=== PATIENT | female | born 1970 | race African-American/Black ===

== ENCOUNTER 2020-04-23 12:24 | Outpatient (REF) | payer OTHER, SELFPAY ==
[2020-04-23 13:44] LABS: MANUAL DIFF FLAG NO
[2020-04-23 13:58] LABS: Basophils Percent Auto 0.3 % (0-2); Eosinophils Absolute Auto 0.2 X10*3/uL (0.0-0.4); Eosinophils Percent Auto 3.1 % (0-4); Hematocrit 41.3 % (37-47); Hemoglobin 13.6 g/dl (12.0-16.0); Imm Gran Abs Auto 0.02 X10*3/uL (0.00-0.03); Imm Gran Pct Auto 0.3 % (0.0-0.4); Lymphocytes Absolute Auto 2.5 X10*3/uL (1.2-4.9); Lymphocytes Percent Auto 36.5 % (20-40); Mean Corpuscular HGB Conc 32.9 g/dl (31.0-35.0); Mean Corpuscular Hemoglobin 31.1 pg (27.0-33.0); Mean Corpuscular Volume 94.5 fL (80-98); Mean Platelet Volume 9.6 fL (9.4-12.3); Monocytes Absolute Auto 0.7 X10*3/uL (0.1-1.2); Neutrophils Absolute Auto 3.4 X10*3/uL (2.0-8.3); Neutrophils Percent Auto 49.8 % (45-73); Platelet Count 361 X10*3/uL (160-400); Red Blood Count 4.37 X10*6/uL (4.20-5.50); Red Cell Distribution Width 12.4 % (11.0-16.0); White Blood Count 6.9 X10*3/uL (4.8-10.8)
[2020-04-23 14:35] LABS: Alanine Aminotransferase 18 U/L (0-31); Alkaline Phosphatase 63 U/L (39-117); Anion Gap 13 (12-20); Aspartate Amino Transferase 13 U/L (5-31); Bilirubin Total 0.4 mg/dL (0.0-1.0); Blood Urea Nitrogen 16 mg/dL (9-16); Calcium 8.9 mg/dL (8.4-10.2); Carbon Dioxide 29 mmol/L (22-29); Chloride 103 mmol/L (96-108); Estimated Glomerular Filt Rate > 60; Glucose Random 98 mg/dL (60-115); Potassium 4.2 mmol/l (3.3-5.1); Sodium 141 mmol/L (135-145)
[2020-04-23 14:43] LABS: Thyroid Stimulating Hormone 0.12 uIU/mL (0.32-4.0)
== END 2020-04-23 12:25 | disposition home or self-care (01) ==
LOC: HO.10HDL 12:24
PROVIDERS: PCP Internal Medicine; Visit Provider Internal Medicine
DX: R53.83 Other fatigue (principal); I10 Essential (primary) hypertension; G47.33 Obstructive sleep apnea (adult) (pediatric); K21.9 Gastro-esophageal reflux disease without esophagitis
CPT/HCPCS: 36415; 80053; 84443; 85025

== ENCOUNTER 2020-05-18 09:41 | Outpatient (REF) | payer OTHER, SELFPAY ==
[2020-05-18 15:01] LABS: Free T4 (Free Thyroxine) 0.89 ng/dL (0.71-1.85); Thyroid Stimulating Hormone 0.28 uIU/mL (0.32-4.0)
[2020-05-19 18:13] LABS: Thyroid Peroxidase Antibodies 1 IU/mL (<9)
== END 2020-05-18 09:42 | disposition home or self-care (01) ==
LOC: HO.10HDL 09:41
PROVIDERS: PCP Internal Medicine; Visit Provider Internal Medicine
DX: E05.90 Thyrotoxicosis, unspecified without thyrotoxic crisis or storm (principal)
CPT/HCPCS: 36415; 84439; 84443; 84481; 86376

== ENCOUNTER → 2020-07-26 20:30 | Outpatient (REF) | payer OTHER, SELFPAY | LOC: HO.SL 20:30 | PROVIDERS: PCP Internal Medicine; Visit Provider Counselor Addiction (Substance Use Disorder) | DX: G47.33 Obstructive sleep apnea (adult) (pediatric) (principal); I10 Essential (primary) hypertension; E66.01 Morbid (severe) obesity due to excess calories | CPT/HCPCS: 95810 ==

== ENCOUNTER 2020-09-24 13:57 | Outpatient (REF) | payer OTHER, SELFPAY ==
[2020-09-24 14:35] LABS: MANUAL DIFF FLAG NO
[2020-09-24 14:38] LABS: Basophils Percent Auto 0.6 % (0-2); Eosinophils Absolute Auto 0.2 X10*3/uL (0.0-0.4); Eosinophils Percent Auto 2.4 % (0-4); Hematocrit 42.8 % (37-47); Hemoglobin 14.3 g/dl (12.0-16.0); Imm Gran Abs Auto 0.03 X10*3/uL (0.00-0.03); Imm Gran Pct Auto 0.4 % (0.0-0.4); Lymphocytes Absolute Auto 2.2 X10*3/uL (1.2-4.9); Lymphocytes Percent Auto 32.9 % (20-40); Mean Corpuscular HGB Conc 33.4 g/dl (31.0-35.0); Mean Corpuscular Hemoglobin 30.8 pg (27.0-33.0); Mean Platelet Volume 8.9 fL (9.4-12.3); Monocytes Absolute Auto 0.6 X10*3/uL (0.1-1.2); Monocytes Percent Auto 9.4 % (2-11); Neutrophils Absolute Auto 3.7 X10*3/uL (2.0-8.3); Neutrophils Percent Auto 54.3 % (45-73); Platelet Count 368 X10*3/uL (160-400); Red Blood Count 4.65 X10*6/uL (4.20-5.50); Red Cell Distribution Width 12.4 % (11.0-16.0); White Blood Count 6.7 X10*3/uL (4.8-10.8)
[2020-09-24 15:05] LABS: Alanine Aminotransferase 28 U/L (0-31); Albumin Level 4.2 g/dL (3.5-5.0); Alkaline Phosphatase 65 U/L (39-117); Anion Gap 15 (12-20); Aspartate Amino Transferase 20 U/L (5-31); Bilirubin Total 0.4 mg/dL (0.0-1.0); Blood Urea Nitrogen 14 mg/dL (9-16); C Reactive Protein 2.37 mg/dL (< or = 0.50); Calcium 9.8 mg/dL (8.4-10.2); Carbon Dioxide 32 mmol/L (22-29); Chloride 98 mmol/L (96-108); Estimated Glomerular Filt Rate 44; Glucose Random 93 mg/dL (60-115); Potassium 4.2 mmol/L (3.3-5.1); Sodium 141 mmol/L (135-145); Total Protein 7.3 g/dL (6.5-8.0)
[2020-09-24 16:34] LABS: Glucose Urine UA NEG (NEG); Leukocyte Esterase Urine TRACE (NEG); Nitrite Urine NEG (NEG); Urine Blood 2+ (NEG); Urine Ketones NEG (NEG); Urine Protein NEG (NEG-TRACE)
[2020-09-24 16:37] LABS: Appearance Urine HAZY; Color Urine YELLOW
[2020-09-24 16:44] LABS: Bacteria Urine 1+ /LPF; RBC Urine 30-49 /HPF (0); Squamous Epithelial Cell Urine 1+ /LPF; WBC Clumps Urine NOTED
[2020-09-25 07:41] LABS: Prolactin 5.4 ng/mL
== END 2020-09-24 13:58 | disposition home or self-care (01) ==
LOC: HO.LAB 13:57
PROVIDERS: PCP Internal Medicine; Visit Provider Internal Medicine
DX: N94.10 Unspecified dyspareunia (principal)
CPT/HCPCS: 36415; 80053; 81001; 84146; 85025; 86140

== ENCOUNTER → 2020-10-10 19:14 | Outpatient (REF) | payer OTHER, SELFPAY | LOC: HO.SL 19:14 | PROVIDERS: Visit Provider Counselor Addiction (Substance Use Disorder) | DX: G47.33 Obstructive sleep apnea (adult) (pediatric) (principal); R06.83 Snoring; Z99.89 Dependence on other enabling machines and devices | CPT/HCPCS: 95811 ==

== ENCOUNTER 2020-10-25 10:08 | Outpatient (REF) | payer OTHER, SELFPAY ==
[2020-10-25 17:21] LABS: CT PCR NOT DETECTED (Not Detect.); NG PCR NOT DETECTED (Not Detect.)
[2020-10-26 09:43] LABS: BV Int Neg Control Negative (Negative); BV Int Pos Control Positive (Positive)
[2020-10-29 00:02] LABS: HPV mRNA E6/E7 rflx Not Detected (Not Detected)
== END 2020-10-25 10:09 | disposition home or self-care (01) ==
LOC: HO.LAB 10:08
PROVIDERS: Visit Provider Advanced Practice Midwife
DX: Z01.411 Encounter for gynecological examination (general) (routine) with abnormal findings (principal); Z11.51 Encounter for screening for human papillomavirus (HPV); Z11.3 Encounter for screening for infections with a predominantly sexual mode of transmission; N95.0 Postmenopausal bleeding; N94.10 Unspecified dyspareunia
CPT/HCPCS: 87480; 87491; 87510; 87591; 87624; 87660; 88142

== ENCOUNTER 2020-11-03 10:01 | Emergency (ER) | payer OTHER, SELFPAY ==
--- NOTE | 2020-11-03 | ECG_ITS ---
Test Reason : SEPSIS Blood Pressure : / mmHG Vent. Rate : 108 BPM Atrial Rate : 108 BPM P-R Int : 156 ms QRS Dur : 076 ms QT Int : 336 ms P-R-T Axes : 055 -35 047 degrees QTc Int : 450 ms Sinus tachycardia Possible Left atrial enlargement Left axis deviation Abnormal ECG When compared with ECG of 03-NOV-2020 11:32, No significant changes seen Referred By: Angel Roach Electronically Signed By:Alan Rowe
--- NOTE | ~2020-11-03 | XR_ITS ---
EXAMINATION: XR CHEST CLINICAL INFORMATION: Fever and shortness of breath COMPARISON: Previous chest x-ray most recent June 2011 TECHNIQUE: Frontal view of the chest was obtained. FINDINGS: The cardiac and mediastinal contours are normal. The lungs are clear. There is no pleural effusion or pneumothorax. There are degenerative changes of the spine. XR/XR chest 1V IMPRESSION: Unremarkable examination.
[2020-11-03 10:18] VITALS: BP 136/71; PULSE 111; RESP 23; TEMP 39; O2SAT 100; BMI 65.2
--- NOTE | 2020-11-03 10:32 | ED_ITS ---
HPI - Fever General Chief Complaint: Fever Stated Complaint: SHAKEY W/CHILLS SINCE 4AM,TEMP 95.5 PER EMS Time Seen by Provider: 11/03/20 10:32 Source: patient Mode of arrival: EMS Limitations: no limitations History of Present Illness HPI Narrative: patient with shaking chills since last night. States some shortness of breath. Patient has been vaccinated for JUWAN CRUZ elicited complaint: fever Onset (ago): hour(s) Associated symptoms: shortness of breath Related Data Home Medications Medication Instructions Recorded Confirmed aspirin 81 mg tablet,delayed 81 mg PO QAM 10/25/20 release bupropion HCl 200 mg tablet,12 hr 200 mg PO DAILY 10/25/20 sustained-release hydrochlorothiazide 12.5 mg capsule 12.5 mg PO DAILY 10/25/20 varenicline 0.5 mg (11)-1 mg (42) 0 ea PO DIRECTED 10/25/20 tablets in a dose pack Previous Rx's Medication Instructions Recorded metronidazole 0.75 % vaginal gel 1 appful VAGINAL BEDTIME 5 Days 10/26/20 #70 g cephalexin 500 mg PO QID 7 Days #28 cap 11/03/20 Allergies Allergy/AdvReac Type Severity Reaction Status Date / Time No Known Allergies Allergy Verified 10/25/20 10:21 Review of Systems Constitutional: Constitutional: Reports no additional constitutional complaints Eyes: Eyes: Reports no additional eye complaints ENT: Denies dizziness Cardiovascular: Cardiovascular: Reports no additional cardiovascular complaints Respiratory: Respiratory: Reports as per HPI Gastrointestinal: Gastrointestinal: Reports no additional gastrointestinal complaints Genitourinary: Genitourinary: Reports no additional female genitourinary complaints Musculoskeletal: Musculoskeletal: Reports no additional musculoskeletal complaints Integumentary/Breasts: Skin/Breast: Denies rash Neurologic: Reports system reviewed and no additional complaints, except as documented, Denies dizziness and Denies Sensory deficit (Neuro) Psychiatric: Psychiatric: Denies anxiety COUNTS INCLUDE 234 BEDS AT THE [facility] Past Medical History Medical History Ectopic Extreme obesity Hypertension Surgical History History of hernia surgery Hx of adenoidectomy Family History Family History Mother History of breast cancer Social History Social History Alcohol intake: current Alcohol intake frequency: holidays/special occasions only Patient Tobacco Use Status: Former Tobacco user Cigarettes Per Day: 7 Years Smoked: 30 Use of substances other than those prescribed or required for medical reasons: No Advance Directives: No Advance Directives Information Provided: Yes Patient : No Physical Exam Vital Signs: Vital Signs: Last Vital Signs Temp 99.1 F 11/03/20 11:52 Pulse 105 H 11/03/20 12:31 Resp 30 H 11/03/20 12:31 BP 122/68 11/03/20 12:31 Pulse Ox 100 11/03/20 11:52 Body Mass Index 65.2 Const: Other: morbidly obese female shaking in bed Orientation/consciousness: oriented to person and patient oriented x3 Limitations: no limitations HENMT: Head: Yes normal to inspection Ears: external ears normal General nose exam: Normal external nose present Mouth: Normal oral and palatal mucosa present and oropharynx normal Throat: Yes posterior oropharynx normal Eyes: General: appearance normal, both eyes and all related structures Neck: Other: supple Neck: Yes normal visual inspection Chest: Chest palpation & inspection: normal inspection of the chest Resp: Auscultation: clear to auscultation bilaterally Cardio: Jugular venous distension: no JVD Rate: regular rate Rhythm: regular rhythm Heart sounds: S1 normal heart sound present and S2 normal heart sound present GI: Inspection: Yes normal to inspection Palpation (GI): Soft to palpation, nontender and No hepatosplenomegaly present Auscultation: normal bowel sounds : General: Yes no CVA tenderness Back/Spine/Pelvis: Back: no CVA tenderness Skin: General skin exam: no rashes or lesions noted Neuro: General: oriented to person and patient oriented x3 Cranial nerves: Yes CN's II-XII intact bilaterally Motor exam (neuro): 5/5 motor strength present throughout Sensory Exam: No Sensory deficit (Neuro) Extrem: General: Yes normal to inspection Psych: Appearance: grossly normal Course Reevaluation(s) Reevaluation #1: Despite shaking chills, UA consistent with UTI, elevated WBC, patient is not septic. Will give IV ABX and dc home Time: 13:06 Reevaluation #2: patient looking and feeling better will dc on keflex for UTI, no longer tachycardic Time: 14:10 MDM - Fever Lab Data Result diagrams: 11/03/20 10:50 11/03/20 10:51 Labs: Lab Results 11/03/20 11/03/20 11/03/20 Range/Units 10:50 10:50 10:50 WBC 13.8 H (4.8-10.8) X10*3/uL RBC 4.55 (4.20-5.50) X10*6/uL Hgb 13.9 (12.0-16.0) g/dl Hct 41.2 (37-47) % MCV 90.5 (80-98) fL MCH 30.5 (27.0-33.0) pg MCHC 33.7 (31.0-35.0) g/dl RDW 12.2 (11.0-16.0) % Plt Count 321 (160-400) X10*3/uL MPV 9.1 L (9.4-12.3) fL Immature Gran % (Auto) 0.5 H (0.0-0.4) % Neut % (Auto) 87.9 H (45-73) % Lymph % (Auto) 6.8 L (20-40) % [place] % (Auto) 4.3 (2-11) % Eos % (Auto) 0.4 (0-4) % Baso % (Auto) 0.1 (0-2) % Lymph # (Auto) 0.9 L (1.2-4.9) X10*3/uL [place] # (Auto) 0.6 (0.1-1.2) X10*3/uL Eos # (Auto) 0.1 (0.0-0.4) X10*3/uL Baso # (Auto) 0.0 (0.0-0.2) X10*3/uL Abs Immat Gran (auto) 0.07 H (0.00-0.03) X10*3/uL Absolute Neuts (auto) 12.1 H (2.0-8.3) X10*3/uL Absolute Nucleated RBC 0.000 (0.0-0.012) X10*3/uL Nucleated RBC % (auto) 0.0 (0.0-0.2) /100WBC PT 12.3 (10.8-13.0) SEC INR 1.0 (0.9-1.1) APTT 30.8 (24.1-38.0) SEC Sodium (135-145) mmol/L Potassium (3.3-5.1) mmol/L Chloride (96-108) mmol/L Carbon Dioxide (22-29) mmol/L Anion Gap (12-20) BUN (9-16) mg/dL Creatinine (0.5-1.4) mg/dL Estim Creat Clear Calc Estimated GFR Random Glucose (60-115) mg/dL Lactic Acid 1.9 (0.5-2.0) mmol/L Calcium (8.4-10.2) mg/dL Total Bilirubin (0.0-1.0) mg/dL Urine Color Urine Appearance Urine pH (5.0-8.0) Ur Specific [place] (1.005-1.025) Urine Protein (NEG-TRACE) MG/DL Urine Glucose (UA) (NEG) MG/DL Urine Ketones (NEG) MG/DL Urine Blood (NEG) Urine Nitrite (NEG) Ur Leukocyte Esterase (NEG) Urine RBC (0) /HPF Urine WBC (0-4) /HPF Ur Squamous Epith Cells /LPF Urine Bacteria /LPF 11/03/20 11/03/20 Range/Units 10:51 11:48 WBC (4.8-10.8) X10*3/uL RBC (4.20-5.50) X10*6/uL Hgb (12.0-16.0) g/dl Hct (37-47) % MCV (80-98) fL MCH (27.0-33.0) pg MCHC (31.0-35.0) g/dl RDW (11.0-16.0) % Plt Count (160-400) X10*3/uL MPV (9.4-12.3) fL Immature Gran % (Auto) (0.0-0.4) % Neut % (Auto) (45-73) % Lymph % (Auto) (20-40) % [place] % (Auto) (2-11) % Eos % (Auto) (0-4) % Baso % (Auto) (0-2) % Lymph # (Auto) (1.2-4.9) X10*3/uL [place] # (Auto) (0.1-1.2) X10*3/uL Eos # (Auto) (0.0-0.4) X10*3/uL Baso # (Auto) (0.0-0.2) X10*3/uL Abs Immat Gran (auto) (0.00-0.03) X10*3/uL Absolute Neuts (auto) (2.0-8.3) X10*3/uL Absolute Nucleated RBC (0.0-0.012) X10*3/uL Nucleated RBC % (auto) (0.0-0.2) /100WBC PT (10.8-13.0) SEC INR (0.9-1.1) APTT (24.1-38.0) SEC Sodium 140 (135-145) mmol/L Potassium 3.7 (3.3-5.1) mmol/L Chloride 100 (96-108) mmol/L Carbon Dioxide 29 (22-29) mmol/L Anion Gap 15 (12-20) BUN 13 (9-16) mg/dL Creatinine 0.96 (0.5-1.4) mg/dL Estim Creat Clear Calc 102.6 Estimated GFR > 60 Random Glucose 134 H D (60-115) mg/dL Lactic Acid (0.5-2.0) mmol/L Calcium 9.8 (8.4-10.2) mg/dL Total Bilirubin 0.9 (0.0-1.0) mg/dL Urine Color YELLOW Urine Appearance CLOUDY Urine pH 6.0 (5.0-8.0) Ur Specific [place] <= 1.005 (1.005-1.025) Urine Protein NEG (NEG-TRACE) MG/DL Urine Glucose (UA) NEG (NEG) MG/DL Urine Ketones NEG (NEG) MG/DL Urine Blood TRACE (NEG) Urine Nitrite POS H (NEG) Ur Leukocyte Esterase 3+ H (NEG) Urine RBC 0-2 (0) /HPF Urine WBC 76-150 H (0-4) /HPF Ur Squamous Epith Cells 2+ /LPF Urine Bacteria 2+ /LPF Discharge Plan Discharge Clinical Impression: Fever Qualifiers: Fever type: unspecified Qualified Code(s): R50.9 - Fever, unspecified Urinary tract infection Qualifiers: Urinary tract infection type: acute cystitis Hematuria presence: without hematuria Qualified Code(s): N30.00 - Acute cystitis without hematuria Patient Disposition: Home, Self-Care Instructions: Urinary Tract Infection in Women (ED) Prescriptions: New cephalexin 500 mg capsule 500 mg PO QID 7 Days Qty: 28 RF: 0 No Action metronidazole [Metrogel Vaginal] 0.75 % gel 1 appful vaginal BEDTIME 5 Days Qty: 70 RF: 0 bupropion HCl 200 mg tablet sustained-release 12 hr 200 mg PO DAILY RF: 0 aspirin 81 mg tablet,delayed release (DR/EC) 81 mg PO QAM RF: 0 hydrochlorothiazide 12.5 mg capsule 12.5 mg PO DAILY RF: 0 Chantix Starting Month Box 0.5 mg (11)- 1 mg (42) tablets,dose pack 0 ea PO DIRECTED RF: 0 Referrals: Milton Quinn MD [Primary Care Provider] - 5 days
[2020-11-03 10:58] LABS: MANUAL DIFF FLAG NO
[2020-11-03 11:04] LABS: Basophils Percent Auto 0.1 % (0-2); Eosinophils Absolute Auto 0.1 X10*3/uL (0.0-0.4); Eosinophils Percent Auto 0.4 % (0-4); Hematocrit 41.2 % (37-47); Hemoglobin 13.9 g/dl (12.0-16.0); Imm Gran Abs Auto 0.07 X10*3/uL (0.00-0.03); Imm Gran Pct Auto 0.5 % (0.0-0.4); Lymphocytes Absolute Auto 0.9 X10*3/uL (1.2-4.9); Lymphocytes Percent Auto 6.8 % (20-40); Mean Corpuscular HGB Conc 33.7 g/dl (31.0-35.0); Mean Corpuscular Hemoglobin 30.5 pg (27.0-33.0); Mean Corpuscular Volume 90.5 fL (80-98); Mean Platelet Volume 9.1 fL (9.4-12.3); Monocytes Absolute Auto 0.6 X10*3/uL (0.1-1.2); Monocytes Percent Auto 4.3 % (2-11); Neutrophils Absolute Auto 12.1 X10*3/uL (2.0-8.3); Neutrophils Percent Auto 87.9 % (45-73); Platelet Count 321 X10*3/uL (160-400); Red Blood Count 4.55 X10*6/uL (4.20-5.50); Red Cell Distribution Width 12.2 % (11.0-16.0); White Blood Count 13.8 X10*3/uL (4.8-10.8)
--- NOTE | 2020-11-03 11:08 | ECG_ITS ---
Test Reason : SEPSIS Blood Pressure : / mmHG Vent. Rate : 108 BPM Atrial Rate : 108 BPM P-R Int : 160 ms QRS Dur : 076 ms QT Int : 330 ms P-R-T Axes : 047 -37 031 degrees QTc Int : 442 ms Sinus tachycardia with occasional Premature atrial complexes Possible Left atrial enlargement Left axis deviation Abnormal ECG When compared with ECG of 30-MAR-2018 19:37, Premature atrial complexes are now Present Referred By: Generic ED Physician Electronically Signed By:Alan Rowe
[2020-11-03 11:09] VITALS: BP 153/74; PULSE 112; RESP 22; TEMP 37.9; O2SAT 100
[2020-11-03 11:10] LABS: Prothrombin Time 12.3 SEC (10.8-13.0)
[2020-11-03] MEDS: Acetaminophen 325 MG TABLET 975 MG PO (11:12)
[2020-11-03 11:13] LABS: Partial Thromboplastin Time 30.8 SEC (24.1-38.0)
[2020-11-03 11:24] LABS: Lactic Acid 1.9 mmol/L (0.5-2.0)
[2020-11-03 11:25] LABS: Anion Gap 15 (12-20); Bilirubin Total 0.9 mg/dL (0.0-1.0); Blood Urea Nitrogen 13 mg/dL (9-16); Calcium 9.8 mg/dL (8.4-10.2); Carbon Dioxide 29 mmol/L (22-29); Chloride 100 mmol/L (96-108); Creatinine Clr Calc Pharmacy 102.6; Estimated Glomerular Filt Rate > 60; Glucose Random 134 mg/dL (60-115); Potassium 3.7 mmol/L (3.3-5.1); Sodium 140 mmol/L (135-145)
[2020-11-03 11:52] VITALS: BP 134/70; PULSE 108; RESP 24; TEMP 37.3; O2SAT 100
[2020-11-03 11:56] LABS: Glucose Urine UA NEG (NEG); Leukocyte Esterase Urine 3+ (NEG); Nitrite Urine POS (NEG); Specific Gravity - Urine <= 1.005 (1.005-1.025); UACC Culture Trigger YES; Urine Blood TRACE (NEG); Urine Ketones NEG (NEG); Urine Protein NEG (NEG-TRACE)
[2020-11-03 11:57] LABS: Appearance Urine CLOUDY; Color Urine YELLOW
--- NOTE | 2020-11-03 12:03 | PC.NURSE ---
pts sister cliff is in wr for updates her number also is [phone], pts daughters are also in [place].
[2020-11-03 12:04] LABS: Bacteria Urine 2+ /LPF; RBC Urine 0-2 /HPF (0); Squamous Epithelial Cell Urine 2+ /LPF
[2020-11-03 12:31] VITALS: BP 122/68; PULSE 105; RESP 30
[2020-11-03] MEDS: cefTRIAXone sodium 1 GM in 0.9 % Sodium Chloride 50 ML IV (12:40)
[2020-11-03 14:28] VITALS: BP 142/64; PULSE 99; RESP 14; TEMP 36.8
== END 2020-11-03 15:01 | disposition home or self-care (01) ==
PROVIDERS: Emergency Provider Emergency Medicine; PCP Internal Medicine
DX: N30.00 Acute cystitis without hematuria (principal); I10 Essential (primary) hypertension; Z79.899 Other long term (current) drug therapy
CPT/HCPCS: 36415; 71045; 80048; 81001; 81003; 82247; 83605; 85025; 85610; 85730; 87040; 87077; 87086; 87088; 87186; 87205; 93005; 96361; 96365; 99285; J0696

== ENCOUNTER 2020-12-13 15:01 | Outpatient (REF) | payer OTHER, SELFPAY ==
--- NOTE | ~2020-12-13 | US_ITS ---
EXAMINATION: PELVIC ULTRASOUND CLINICAL INFORMATION: Postmenopausal bleeding COMPARISON: None TECHNIQUE: Transabdominal pelvic ultrasound was performed. Patient declined transvaginal exam. FINDINGS: Exam is very limited. The uterus measures 10.3 x 4.9 x 5.2 cm in dimension. The lower uterine segment and cervix are not well visualized. There is question of a 3.3 x 3.2 x 3.1 cm right posterior uterine body fibroid. Endometrium is slightly thickened for a postmenopausal patient measuring 0.7 cm. The ovaries are not seen. No fluid is seen. US/US pelvic and transvaginal IMPRESSION: Very limited exam. Question 3 cm uterine fibroid and slightly thickened endometrium measuring 0.7 cm. Ovaries not seen.
== END 2020-12-13 15:02 | disposition home or self-care (01) ==
LOC: HO.US 15:01
PROVIDERS: Visit Provider Advanced Practice Midwife
DX: N95.0 Postmenopausal bleeding (principal)
CPT/HCPCS: 76830; 76856

== ENCOUNTER 2021-02-23 12:47 | Outpatient (REF) | payer OTHER, SELFPAY | END 2021-02-23 12:48 | disposition home or self-care (01) | LOC: HO.LAB 12:47 | PROVIDERS: PCP Internal Medicine; Visit Provider Advanced Practice Midwife | DX: N95.0 Postmenopausal bleeding (principal); R35.0 Frequency of micturition | CPT/HCPCS: 58100; 81002; 87086; 88305 ==

== ENCOUNTER 2021-02-24 11:58 | Outpatient (REF) | payer OTHER, SELFPAY ==
[2021-02-24 13:37] LABS: MANUAL DIFF FLAG NO
[2021-02-24 13:45] LABS: Basophils Percent Auto 0.5 % (0-2); Eosinophils Absolute Auto 0.3 X10*3/uL (0.0-0.4); Eosinophils Percent Auto 4.8 % (0-4); Hematocrit 40.8 % (37-47); Hemoglobin 13.4 g/dl (12.0-16.0); Imm Gran Abs Auto 0.02 X10*3/uL (0.00-0.03); Imm Gran Pct Auto 0.3 % (0.0-0.4); Lymphocytes Absolute Auto 2.1 X10*3/uL (1.2-4.9); Lymphocytes Percent Auto 34.9 % (20-40); Mean Corpuscular HGB Conc 32.8 g/dl (31.0-35.0); Mean Corpuscular Hemoglobin 30.7 pg (27.0-33.0); Mean Corpuscular Volume 93.4 fL (80-98); Mean Platelet Volume 9.4 fL (9.4-12.3); Monocytes Absolute Auto 0.7 X10*3/uL (0.1-1.2); Monocytes Percent Auto 11.3 % (2-11); Neutrophils Absolute Auto 2.9 X10*3/uL (2.0-8.3); Neutrophils Percent Auto 48.2 % (45-73); Platelet Count 310 X10*3/uL (160-400); Red Blood Count 4.37 X10*6/uL (4.20-5.50); Red Cell Distribution Width 13.3 % (11.0-16.0)
[2021-02-24 14:16] LABS: Alanine Aminotransferase 27 U/L (0-31); Albumin Level 4.1 g/dL (3.5-5.0); Alkaline Phosphatase 66 U/L (39-117); Anion Gap 13 (12-20); Aspartate Amino Transferase 20 U/L (5-31); Bilirubin Total 0.5 mg/dL (0.0-1.0); Blood Urea Nitrogen 11 mg/dL (9-16); Calcium 9.6 mg/dL (8.4-10.2); Carbon Dioxide 29 mmol/L (22-29); Chloride 104 mmol/L (96-108); Cholesterol 214 mg/dL; Estimated Glomerular Filt Rate > 60; Glucose Random 103 mg/dL (60-115); HDL Cholesterol 39 mg/dL; LDL Cholesterol Calculated 147 mg/dl; Potassium 4.4 mmol/L (3.3-5.1); Sodium 142 mmol/L (135-145); Total Protein 7.1 g/dL (6.5-8.0); Triglycerides 144 mg/dL
[2021-02-24 14:37] LABS: Thyroid Stimulating Hormone 0.21 uIU/mL (0.32-4.0)
== END 2021-02-24 11:59 | disposition home or self-care (01) ==
LOC: HO.10HDL 11:58
PROVIDERS: Visit Provider Internal Medicine
DX: Z00.00 Encounter for general adult medical examination without abnormal findings (principal); R63.5 Abnormal weight gain
CPT/HCPCS: 36415; 80053; 80061; 84443; 85025

== ENCOUNTER → 2021-03-14 11:33 | Outpatient (BNVA) | payer OTHER, SELFPAY | PROVIDERS: PCP Internal Medicine; Visit Provider Advanced Practice Midwife ==

== ENCOUNTER 2021-03-16 15:19 | Outpatient (REF) | payer OTHER, SELFPAY ==
--- NOTE | ~2021-03-16 | MM_ITS ---
EXAMINATION: MM SCREENING DIGITAL BREAST TOMOSYNTHESIS, BILATERAL CLINICAL INFORMATION: Screening. Asymptomatic. The lifetime risk of breast cancer based on the Tyrer-Cuzick Model is 18%. COMPARISON: Mammography: 04/03/2011 TECHNIQUE: Digital breast tomosynthesis is performed in both the craniocaudal and mediolateral oblique views along with computer-aided detection (CAD). Synthesized 2D images are generated from the tomosynthesis. Additional views are provided: Bilateral CC, bilateral MLO. FINDINGS: There are scattered areas of fibroglandular density (ACR BI-RADS breast composition Category b). There are no significant masses, abnormal calcifications, or other abnormalities. MM/MM tomosynthesis screening BI IMPRESSION: No mammographic evidence of malignancy. ASSESSMENT: BI-RADS 1: Negative RECOMMENDATION: Routine annual mammography screening. This patient's information was entered into a reminder system with a target due date for their next mammogram.
== END 2021-03-16 15:20 | disposition home or self-care (01) ==
LOC: HO.MAMMO 15:19
PROVIDERS: Visit Provider Internal Medicine
DX: Z12.31 Encounter for screening mammogram for malignant neoplasm of breast (principal)
CPT/HCPCS: 77063; 77067

== ENCOUNTER 2021-06-24 10:36 | Outpatient (REF) | payer OTHER, SELFPAY ==
[2021-06-27 07:46] LABS: TS Negative Control Passed; TS Panel A 0; TS Panel B 0; TS Positive Control Passed; TSpotTB Negative (Negative)
== END 2021-06-24 10:37 | disposition home or self-care (01) ==
LOC: HO.LAB 10:36
PROVIDERS: PCP Internal Medicine; Visit Provider Internal Medicine
DX: Z02.1 Encounter for pre-employment examination (principal); Z11.1 Encounter for screening for respiratory tuberculosis
CPT/HCPCS: 36415; 86481

== ENCOUNTER 2021-08-15 14:37 | Outpatient (REF) | payer OTHER, SELFPAY ==
[2021-08-16 15:22] LABS: BV Int Neg Control Negative (Negative); BV Int Pos Control Positive (Positive)
== END 2021-08-15 14:38 | disposition home or self-care (01) ==
LOC: HO.LAB 14:37
PROVIDERS: PCP Internal Medicine; Visit Provider Advanced Practice Midwife
DX: N73.9 Female pelvic inflammatory disease, unspecified (principal); N95.0 Postmenopausal bleeding; N89.8 Other specified noninflammatory disorders of vagina; R23.2 Flushing; R35.0 Frequency of micturition; I10 Essential (primary) hypertension; E66.01 Morbid (severe) obesity due to excess calories; Z68.44 Body mass index [BMI] 60.0-69.9, adult; Z87.891 Personal history of nicotine dependence
CPT/HCPCS: 87480; 87510; 87660; 99212

== ENCOUNTER 2021-09-05 13:32 | Outpatient (REF) | payer OTHER, SELFPAY ==
--- NOTE | ~2021-09-05 | US_ITS ---
EXAMINATION: US PELVIS CLINICAL INFORMATION: Postmenopausal bleeding COMPARISON: Previous pelvic ultrasound December [address] of the abdomen and pelvis January 2020 TECHNIQUE: Transabdominal pelvic ultrasound. Patient complained transvaginal exam. FINDINGS: Exam is very limited due to body habitus. The uterus is anteverted and measures 9.5 x 4.4 x 6.3 cm in dimension. The previously identified right posterior uterine body fibroid is not appreciated. There is a 2.6 x 2 x 2.1 cm hypoechoic area questionable for a fibroid in the left cornual region. The endometrium is not well visualized. Endometrial thickness is estimated at 0.8 cm. The ovaries are not seen. There is no fluid in the pelvis. US/US pelvic complete IMPRESSION: Very limited exam. Endometrial thickness is estimated at 0.8 cm.
== END 2021-09-05 13:33 | disposition home or self-care (01) ==
LOC: HO.US 13:32
PROVIDERS: Visit Provider Advanced Practice Midwife
DX: N95.0 Postmenopausal bleeding (principal)
CPT/HCPCS: 76856

== ENCOUNTER 2021-09-27 14:58 | Outpatient (REF) | payer OTHER, SELFPAY ==
[2021-09-27 15:09] LABS: MANUAL DIFF FLAG NO
[2021-09-27 15:40] LABS: Basophils Percent Auto 0.5 % (0-2); Eosinophils Absolute Auto 0.2 X10*3/uL (0.0-0.4); Eosinophils Percent Auto 2.7 % (0-4); Hematocrit 44.1 % (37.0-47.0); Hemoglobin 14.6 g/dl (12.0-16.0); Imm Gran Abs Auto 0.02 X10*3/uL (0.00-0.03); Imm Gran Pct Auto 0.3 % (0.0-0.4); Lymphocytes Percent Auto 39.4 % (20-40); Mean Corpuscular HGB Conc 33.1 g/dl (31.0-35.0); Mean Corpuscular Hemoglobin 30.2 pg (27.0-33.0); Mean Corpuscular Volume 91.3 fL (80.0-98.0); Mean Platelet Volume 8.9 fL (9.4-12.3); Monocytes Absolute Auto 0.8 X10*3/uL (0.1-1.2); Neutrophils Absolute Auto 3.6 x10*3/uL (2.0-8.3); Neutrophils Percent Auto 47.1 % (45-73); Platelet Count 378 X10*3/uL (160-400); Red Blood Count 4.83 X10*6/uL (4.20-5.50); Red Cell Distribution Width 12.5 % (11.0-16.0); White Blood Count 7.5 X10*3/uL (4.8-10.8)
[2021-09-27 15:51] LABS: Estimated Average Glucose 126 mg/dL
[2021-09-27 16:09] LABS: Alanine Aminotransferase 32 U/L (0-31); Albumin Level 4.2 g/dL (3.5-5.0); Alkaline Phosphatase 68 U/L (39-117); Anion Gap 14 (12-20); Aspartate Amino Transferase 23 U/L (5-31); Bilirubin Total 0.3 mg/dL (0.0-1.0); Blood Urea Nitrogen 13 mg/dL (9-16); Carbon Dioxide 31 mmol/L (22-29); Chloride 101 mmol/L (96-108); Estimated Glomerular Filt Rate 54; Glucose Random 94 mg/dL (60-115); Potassium 4.2 mmol/L (3.3-5.1); Sodium 142 mmol/L (135-145); Total Protein 7.6 g/dL (6.5-8.0)
== END 2021-09-27 14:59 | disposition home or self-care (01) ==
LOC: HO.LAB 14:58
PROVIDERS: Absent Provider Internal Medicine; PCP Internal Medicine; Visit Provider Advanced Practice Midwife
DX: R53.1 Weakness (principal); R50.9 Fever, unspecified; R53.83 Other fatigue
CPT/HCPCS: 36415; 80053; 83036; 85025

== ENCOUNTER → 2022-02-06 11:55 | Outpatient (BNVA) | payer OTHER, SELFPAY | PROVIDERS: PCP Internal Medicine; Visit Provider Obstetrics & Gynecology | DX: N95.0 Postmenopausal bleeding (principal) | CPT/HCPCS: 99212 ==

== ENCOUNTER 2022-02-24 08:19 | Day surgery (SDC) | payer OTHER, SELFPAY ==
--- NOTE | 2022-02-23 10:23 | P.CONAN_ITS ---
Documented by User: Madelaine Coronel NP 02/23/22 10:23 HPI - Anesthesia Eval Consult details Narrative: 51yo F for D&C Hysteroscopy,poss polypectomy,poss myomectomy PMFSH Active Problems Active Problems: All Active Problems (Updated 02/06/22 @ 12:31 by Marcello Pablo MD) Chronic endometritis (Acute) PMB (postmenopausal bleeding) (Acute) Past Medical History Medical History Ectopic Extreme obesity Hypertension Family History Family History Mother History of breast cancer Surgical History Surgical History History of hernia surgery Hx of adenoidectomy Social History Social History Alcohol intake: current Alcohol intake frequency: holidays/special occasions only Patient Tobacco Use Status: Former Tobacco user Tobacco use type: Cigarette Cigarettes Per Day: 4 Years Smoked: 30 Smoked in Last 30 Days: Yes Use of substances other than those prescribed or required for medical reasons: Yes Are you DNR?: No Advance Directives: No Advance Directives Information Provided: Yes Meds Allergies Allergy/AdvReac Type Severity Reaction Status Date / Time No Known Allergies Allergy Verified 02/24/22 08:43 Home Medications Medication Instructions Recorded Confirmed Last Taken Type aspirin 81 mg tablet,delayed 81 mg PO QAM 10/25/20 02/24/22 02/23/22 History release bupropion HCl 200 mg tablet,12 hr 200 mg PO DAILY 10/25/20 02/24/22 Unknown History sustained-release hydrochlorothiazide 12.5 mg capsule 12.5 mg PO DAILY 10/25/20 02/24/22 Unknown History meclizine 25 mg tablet 25 mg PO BID PRN Vertigo 08/15/21 02/24/22 Unknown History Exam Exam Date and Time: February 23, 2022 1023 Pertinent Lab Results Pertinent Lab Results: Laboratory Tests 09/27/21 09/27/21 15:05 15:05 WBC 7.5 Hgb 14.6 Hct 44.1 Plt Count 378 Sodium 142 Potassium 4.2 Chloride 101 Carbon Dioxide 31 H BUN 13 Creatinine 1.06 Assessment and Plan Assessment Anesthesia Assessment: Chart Reviewed Documented by User: Chris Montez MD 02/24/22 09:28 [facility] Past Medical History Medical History Ectopic Extreme obesity Hypertension Family History Family History Mother History of breast cancer Family history of problems with anesthesia: No Surgical History Surgical History History of hernia surgery Hx of adenoidectomy History of Problems with Anesthesia: No Social History Social History Alcohol intake: current Alcohol intake frequency: holidays/special occasions only Patient Tobacco Use Status: Former Tobacco user Tobacco use type: Cigarette Cigarettes Per Day: 4 Years Smoked: 30 Smoked in Last 30 Days: Yes Use of substances other than those prescribed or required for medical reasons: Yes Are you DNR?: No Advance Directives: No Advance Directives Information Provided: Yes Meds Allergies Allergy/AdvReac Type Severity Reaction Status Date / Time No Known Allergies Allergy Verified 02/24/22 08:43 Home Medications Medication Instructions Recorded Confirmed Last Taken Type aspirin 81 mg tablet,delayed 81 mg PO QAM 10/25/20 02/24/22 02/23/22 History release bupropion HCl 200 mg tablet,12 hr 200 mg PO DAILY 10/25/20 02/24/22 Unknown History sustained-release hydrochlorothiazide 12.5 mg capsule 12.5 mg PO DAILY 10/25/20 02/24/22 Unknown History meclizine 25 mg tablet 25 mg PO BID PRN Vertigo 08/15/21 02/24/22 Unknown History Exam Airway Mallampati Class: III TM Dist: >3cm Neck ROM: Full Loose/Missing/Broken Teeth: No Heart: [id number] Lungs: cta b/l Assessment and Plan Assessment Anesthesia Assessment: Anesthesia Plan Discussed Final Anesthetic Review Family History of Problems with Anesthesia: No History of Problems with Anesthesia: No NPO: Yes ASA Class: III Final Preanesthetic Review: No Changes in Pt Med Stat, Consent Obtained/Reviewed and Anes Risks/Benef Reviewed Patient Risk: Intermediate Procedure Risk: Intermediate Assessment/Block/Sedation in SS: Assess/Block/Sedation-SS Anesthetic Plan Anesthetic Plan: GA and Agree w/ Assess. and Plan Disposition: Standard PACU
[2022-02-24 08:46] VITALS: BMI 60.3
[2022-02-24 08:53] VITALS: BP 127/90; PULSE 92; RESP 16; TEMP 36.5; O2SAT 98
[2022-02-24] MEDS: Lactated Ringers 1,000 ML 100 ML IVCONT (09:16)
--- NOTE | 2022-02-24 09:17 | MHC.SHP ---
Pre-Procedural Eval Section A Date of Service: 02/24/22 The patient is an INPATIENT: No Changes since office visit: No Cold of Flu in the past 2 weeks, No New Medical Problems, No Changes in Medication and No Patient answered all questions The History & Physical has been completed within 30 days and I have reviewed it.: Yes Section B Chief Complaint: Postmenopausal bleeding Allergies: Allergies Allergy/AdvReac Type Severity Reaction Status Date / Time No Known Allergies Allergy Verified 02/24/22 08:43 Plan Diagnosis/Plan: Unchanged I have reviewed the history and physical and performed a pertinent physical examination on my patient. No changes have occurred unless specified.
--- NOTE | 2022-02-24 10:10 | P.BOP_ITS ---
Brief Operative Note Date of Service: 02/24/22 Pre-op diagnosis: Postmenopausal bleeding Post-op diagnosis: same Procedure: Hysteroscopy D&C Surgeon: Marcello Pablo MD Anesthesia: GLMA Was an Forest Officer used for this Procedure?: No Estimated blood loss (mL): 0 Pathology: other (Endometrial Scrapping. ) Condition: stable Disposition: PACU
--- NOTE | 2022-02-24 10:11 | P.OP_ITS ---
Operative Note Operative Note Date of Service: 02/24/22 Narrative: Preop Diagnosis: Post Menopausal bleeding Operation: Diagnostic Hysteroscopy, Dilataion & Curettage Post Op Diagnosis: Normal endometrial cavity QBL: Minimal Anesthesia: GLMA Surgeon: Marcello Pablo MD Engineering Technology Instructor: None Complication: None Pathology: Endometrial Scrapings Procedure: The patient was put in the dorsal lithotomy position, scrubbed, and draped in the usual manner. A sterile speculum was inserted in the patient's vagina. The anterior lip of the cervix was grasped with a single tooth tenaculum. The cervix was dilated up to 5 mm, then the scope was inserted in the patient's uterus. Inspection revealed Normal endometrial cavity. The Myosure Reach device was used; the scope was removed from the endometrial cavity , sharp curettings was carried on with minimal to moderate amount of tissues retrieved. At the end of the procedure, all instruments were taken out of the patient uterine and vaginal cavity. The single tooth tenaculum was removed and homeostasis was assured using pressure,. The patient tolerated the procedure well and was transferred to the PACU in a stable condition.
[2022-02-24 10:20] VITALS: BP 171/73; PULSE 96; RESP 24; TEMP 36.4; O2SAT 92
[2022-02-24 10:25] VITALS: BP 175/86; PULSE 88; RESP 17; O2SAT 92
[2022-02-24 10:35] VITALS: BP 151/95; BP 160/70; PULSE 80; PULSE 81; RESP 18; RESP 19; O2SAT 94; O2SAT 96
[2022-02-24 10:50] VITALS: BP 182/81; PULSE 66; RESP 20; TEMP 36.3; O2SAT 97
== END 2022-02-24 11:31 | disposition home or self-care (01) ==
PROVIDERS: PCP Internal Medicine; Visit Provider Obstetrics & Gynecology
PROC: 0UDB8ZZ Extraction of Endometrium, Via Natural or Artificial Opening Endoscopic (ICD-10-PCS; CPT 58558; principal; 2022-02-24 09:50)
DX: N95.0 Postmenopausal bleeding (principal); N85.4 Malposition of uterus; I10 Essential (primary) hypertension; E66.01 Morbid (severe) obesity due to excess calories; Z68.44 Body mass index [BMI] 60.0-69.9, adult; Z79.82 Long term (current) use of aspirin; Z79.899 Other long term (current) drug therapy; Z87.891 Personal history of nicotine dependence
CPT/HCPCS: 58558; 88305; J1885; J2405; J3010

== ENCOUNTER 2022-03-13 09:26 | Outpatient (REF) | payer OTHER, SELFPAY ==
[2022-03-13 09:46] LABS: MANUAL DIFF FLAG NO
[2022-03-13 10:25] LABS: Basophils Percent Auto 0.7 % (0-2); Eosinophils Absolute Auto 0.2 X10*3/uL (0.0-0.4); Hematocrit 41.3 % (37.0-47.0); Hemoglobin 13.8 g/dl (12.0-16.0); Imm Gran Abs Auto 0.01 X10*3/uL (0.00-0.03); Imm Gran Pct Auto 0.2 % (0.0-0.4); Lymphocytes Absolute Auto 2.7 X10*3/uL (1.2-4.9); Lymphocytes Percent Auto 46.9 % (20-40); Mean Corpuscular HGB Conc 33.4 g/dl (31.0-35.0); Mean Corpuscular Hemoglobin 30.7 pg (27.0-33.0); Mean Platelet Volume 9.2 fL (9.4-12.3); Monocytes Absolute Auto 0.5 X10*3/uL (0.1-1.2); Monocytes Percent Auto 9.3 % (2-11); Neutrophils Absolute Auto 2.3 x10*3/uL (2.0-8.3); Neutrophils Percent Auto 38.9 % (45-73); Platelet Count 322 X10*3/uL (160-400); Red Blood Count 4.49 X10*6/uL (4.20-5.50); Red Cell Distribution Width 12.8 % (11.0-16.0); White Blood Count 5.8 X10*3/uL (4.8-10.8)
[2022-03-13 11:06] LABS: Alanine Aminotransferase 19 U/L (0-31); Alkaline Phosphatase 55 U/L (39-117); Anion Gap 16 (12-20); Aspartate Amino Transferase 13 U/L (5-31); Bilirubin Total 0.3 mg/dL (0.0-1.0); Blood Urea Nitrogen 17 mg/dL (9-16); C Reactive Protein 1.35 mg/dL (< or = 0.50); Calcium 9.4 mg/dL (8.4-10.2); Carbon Dioxide 28 mmol/L (22-29); Chloride 103 mmol/L (96-108); Cholesterol 219 mg/dL; Estimated Glomerular Filt Rate > 60; Glucose Fasting 107 mg/dL (60-99); HDL Cholesterol 42 mg/dL; LDL Cholesterol Calculated 150 mg/dl; Potassium 4.5 mmol/L (3.3-5.1); Sodium 142 mmol/L (135-145); Total Protein 6.9 g/dL (6.5-8.0); Triglycerides 136 mg/dL
[2022-03-13 11:30] LABS: Thyroid Stimulating Hormone 0.11 uIU/mL (0.32-4.0)
[2022-03-13 11:43] LABS: Vitamin B12 468 pg/mL (200-900)
== END 2022-03-13 09:27 | disposition home or self-care (01) ==
LOC: HO.LAB 09:26
PROVIDERS: PCP Internal Medicine; Visit Provider Internal Medicine
DX: Z00.00 Encounter for general adult medical examination without abnormal findings (principal)
CPT/HCPCS: 36415; 80053; 80061; 82550; 82607; 84443; 85025; 86140

== ENCOUNTER → 2022-03-14 12:33 | Outpatient (BNVA) | payer OTHER, SELFPAY | PROVIDERS: PCP Internal Medicine; Visit Provider Obstetrics & Gynecology | DX: D25.9 Leiomyoma of uterus, unspecified (principal); N95.0 Postmenopausal bleeding | CPT/HCPCS: 99212 ==

== ENCOUNTER → 2022-06-02 12:32 | Outpatient (BNVA) | payer OTHER, SELFPAY | PROVIDERS: PCP Internal Medicine; Visit Provider Physician Assistant Surgical | DX: Z13.89 Encounter for screening for other disorder (principal) ==

== ENCOUNTER 2022-06-14 10:12 | Outpatient (REF) | payer OTHER, SELFPAY ==
--- NOTE | ~2022-06-14 | US_ITS ---
CLINICAL INDICATION: Uterine leiomyoma. TECHNIQUE: Real-time transabdominal pelvic ultrasound examination was performed. The patient reportedly refused transvaginal examination. COMPARISON: September 05, 2021 and December 13, 2020. FINDINGS: The study is limited. The uterus measures 9.0 cm in length by 4.9 cm in AP dimension by 4.5 cm in transverse dimension. Question 3.4 x 3.4 x 2.8 cm intramural/subserosal leiomyoma posteriorly in the body of the uterus, poorly demonstrated. Suspect 2.9 x 2.1 x 2.0 cm intramural leiomyoma in the body of uterus toward the left. The endometrial stripe is poorly visualized. It may measure approximately 5 mm in thickness. No fluid is seen in the endometrial cavity. The ovaries could not be visualized by the technologist. No adnexal mass is seen. No fluid is identified in the cul-de-sac. US/US pelvic and transvaginal IMPRESSION: Limited study. Uterine leiomyomata. Ovaries could not be visualized by the technologist.
== END 2022-06-14 10:13 | disposition home or self-care (01) ==
LOC: HO.US 10:12
PROVIDERS: PCP Internal Medicine; Visit Provider Obstetrics & Gynecology
DX: D25.9 Leiomyoma of uterus, unspecified (principal)
CPT/HCPCS: 76830; 76856

== ENCOUNTER → 2022-07-26 11:12 | Outpatient (BNVA) | payer OTHER, SELFPAY | PROVIDERS: PCP Internal Medicine; Visit Provider Obstetrics & Gynecology | DX: D25.9 Leiomyoma of uterus, unspecified (principal) | CPT/HCPCS: 99212 ==

== ENCOUNTER → 2022-08-11 10:33 | Outpatient (BNVA) | payer OTHER, SELFPAY | PROVIDERS: PCP Internal Medicine; Visit Provider Physician Assistant | DX: Z01.818 Encounter for other preprocedural examination (principal); E66.09 Other obesity due to excess calories; I10 Essential (primary) hypertension; R42 Dizziness and giddiness; F32.A Depression, unspecified; Z68.44 Body mass index [BMI] 60.0-69.9, adult | CPT/HCPCS: 99202 ==

== ENCOUNTER → 2022-08-29 12:30 | Outpatient (BNVA) | payer OTHER, SELFPAY | PROVIDERS: PCP Internal Medicine; Visit Provider Counselor Mental Health ==

== ENCOUNTER 2022-11-09 12:45 | Outpatient (REF) | payer OTHER, SELFPAY ==
[2022-11-16 07:09] LABS: HPV mRNA E6/E7 rflx Not Detected (Not Detected)
== END 2022-11-09 12:46 | disposition home or self-care (01) ==
LOC: HO.LNP 12:45
PROVIDERS: PCP Internal Medicine; Visit Provider Obstetrics & Gynecology
DX: N95.0 Postmenopausal bleeding (principal); N93.9 Abnormal uterine and vaginal bleeding, unspecified
CPT/HCPCS: 87624; 88142; 99212

== ENCOUNTER 2022-11-29 08:50 | Day surgery (SDC) | payer OTHER, SELFPAY ==
[2022-11-22 10:34] VITALS: BMI 65.3
--- NOTE | 2022-11-28 09:06 | P.CONAN_ITS ---
Documented by User: Madelaine Coronel NP 11/28/22 09:07 HPI - Anesthesia Eval Consult details Narrative: 52yo F for D&C Hysteroscopy,poss myomectomy,polypectomy PMFSH Active Problems Active Problems: All Active Problems (Updated 11/09/22 @ 13:03 by Marcello Pablo MD) Major depressive disorder, recurrent, moderate (Acute) Pre-op evaluation (Acute) Dizziness (Acute) Depression (Acute) HTN (hypertension) with goal to be determined (Acute) Morbid exogenous obesity (Acute) Uterine myoma (Acute) PMB (postmenopausal bleeding) (Acute) Chronic endometritis (Acute) Past Medical History Medical History (Updated 11/29/22 @ 09:13 by Linda Shi RN) Depression Ectopic Extreme obesity Hx of sleep apnea Hypertension Family History Family History Mother History of breast cancer Diabetes Obesity Son No problems noted. Daughter No problems noted. Family history of problems with anesthesia: No Surgical History Surgical History (Updated 11/29/22 @ 09:10 by Linda Shi RN) History of hernia surgery Hx of adenoidectomy Hx of myringotomy Hx of oral surgery History of Problems with Anesthesia: No Social History Social History Alcohol intake: current Alcohol intake frequency: holidays/special occasions o nly Alcohol type: beer and wine Patient Tobacco Use Status: Current everyday Tobacco user Tobacco use type: Cigarette Cigarettes Per Day: 2 Years Smoked: 30 Use of substances other than those prescribed or required for medical reasons: No Are you DNR?: No Advance Directives: No Advance Directives Information Provided: Yes Meds Allergies Allergy/AdvReac Type Severity Reaction Status Date / Time No Known Allergies Allergy Verified 11/29/22 09:40 Home Medications Medication Instructions Recorded Confirmed Last Taken Type aspirin 81 mg tablet,delayed 81 mg PO QAM 10/25/20 11/29/22 11/28/22 History release bupropion HCl 200 mg tablet,12 hr 200 mg PO DAILY 10/25/20 11/29/22 Unknown History sustained-release hydrochlorothiazide 12.5 mg capsule 12.5 mg PO DAILY 10/25/20 11/29/22 Unknown History sertraline 25 mg tablet 25 mg PO DAILY 11/09/22 11/29/22 Unknown History Exam Exam Date and Time: November 28, 2022 0906 Height,Weight and Vital Signs: Height 5 ft 2 in Weight 161.932 kg Assessment and Plan Assessment Anesthesia Assessment: Chart Reviewed Final Anesthetic Review Family History of Problems with Anesthesia: No History of Problems with Anesthesia: No Documented by User: Steven Manley MD 11/29/22 10:56 PMFSH Past Medical History Medical History (Updated 11/29/22 @ 09:13 by Linda Shi RN) Depression Ectopic Extreme obesity Hx of sleep apnea Hypertension Family History Family History Mother History of breast cancer Diabetes Obesity Son No problems noted. Daughter No problems noted. Surgical History Surgical History (Updated 11/29/22 @ 09:10 by Linda Shi RN) History of hernia surgery Hx of adenoidectomy Hx of myringotomy Hx of oral surgery Social History Social History Alcohol intake: current Alcohol intake frequency: holidays/special occasions only Alcohol type: beer and wine Patient Tobacco Use Status: Current everyday Tobacco user Tobacco use type: Cigarette Cigarettes Per Day: 2 Years Smoked: 30 Use of substances other than those prescribed or required for medical reasons: No Are you DNR?: No Advance Directives: No Advance Directives Information Provided: Yes Meds Allergies Allergy/AdvReac Type Severity Reaction Status Date / Time No Known Allergies Allergy Verified 11/29/22 09:40 Home Medications Medication Instructions Recorded Confirmed Last Taken Type aspirin 81 mg tablet,delayed 81 mg PO QAM 10/25/20 11/29/22 11/28/22 History release bupropion HCl 200 mg tablet,12 hr 200 mg PO DAILY 10/25/20 11/29/22 Unknown History sustained-release hydrochlorothiazide 12.5 mg capsule 12.5 mg PO DAILY 10/25/20 11/29/22 Unknown History sertraline 25 mg tablet 25 mg PO DAILY 11/09/22 11/29/22 Unknown History Exam Airway Mallampati Class: III TM Dist: <=3cm Neck ROM: Full Loose/Missing/Broken Teeth: Yes and Upper Heart: ok Lungs: ok Assessment and Plan Assessment Anesthesia Assessment: Anesthesia Plan Discussed Final Anesthetic Review NPO: Yes ASA Class: III Final Preanesthetic Review: No Changes in Pt Med Stat, Meds/Allgs Chart Reviewed, Consent Obtained/Reviewed and Anes Risks/Benef Reviewed Patient Risk: High Procedure Risk: Intermediate Anesthetic Plan Anesthetic Plan: GA and Agree w/ Assess. and Plan Disposition: Standard PACU
[2022-11-29 09:33] VITALS: BP 137/75; PULSE 89; RESP 17; TEMP 36.7; O2SAT 96
[2022-11-29] MEDS: Lactated Ringers 1,000 ML 100 ML IVCONT (09:40)
--- NOTE | 2022-11-29 09:58 | MHC.SHP ---
Pre-Procedural Eval Section A Date of Service: 11/29/22 The patient is an INPATIENT: No Changes since office visit: No Cold of Flu in the past 2 weeks, No New Medical Problems, No Changes in Medication and No Patient answered all questions The History & Physical has been completed within 30 days and I have reviewed it.: Yes Section B Chief Complaint: Postmenopausal bleeding Allergies: Allergies Allergy/AdvReac Type Severity Reaction Status Date / Time No Known Allergies Allergy Verified 11/29/22 09:40 Plan Diagnosis/Plan: Unchanged I have reviewed the history and physical and performed a pertinent physical examination on my patient. No changes have occurred unless specified. Time Spent With Patient Time: Total time managing care of this patient today ____ minutes.
--- NOTE | 2022-11-29 12:11 | P.BOP_ITS ---
Brief Operative Note Date of Service: 11/29/22 Pre-op diagnosis: Postmenopausal bleeding Post-op diagnosis: same (With submucosal myoma) Procedure: Hysteroscopy D&C, myomectomy Surgeon: Marcello Pablo MD Anesthesia: GLMA Was an Stockroom Inventory Clerk used for this Procedure?: No Estimated blood loss (mL): 0 Pathology: other (Endometrial Scrapping. Myoma) Condition: stable Disposition: PACU
--- NOTE | 2022-11-29 12:11 | P.OP_ITS ---
Operative Note Operative Note Date of Service: 11/29/22 Narrative: Preop Diagnosis: Postmenopausal bleeding Operation: Diagnostic Hysteroscopy, Dilataion & Curettage and myomectomy Post Op Diagnosis: Submucosal myoma QBL: Minimal Anesthesia: GLMA Surgeon: Marcello Pablo MD Fruit Picker Machine Operator: None Complication: None Pathology: Endometrial Scrapings, the mucosa myoma Procedure: The patient was put in the dorsal lithotomy position, scrubbed, and draped in the usual manner. A sterile speculum was inserted in the patient's vagina. The anterior lip of the cervix was grasped with a single tooth tenaculum. The cervix was dilated up to 5 mm, then the scope was inserted in the patient's uterus. Inspection revealed posterior uterine wall submucosal myoma. The Myosure Reach device was used; it was introduced through the operative channel and myomectomy done with no complications. The scope was then taken out from the uterine cavity, sharp curettings was carried on with minimal to moderate amount of tissues retrieved. At the end of the procedure, all instruments were taken out of the patient uterine and vaginal cavity. The single tooth tenaculum was removed and homeostasis was assured using pressure,. The patient tolerated the procedure well and was transferred to the PACU in a stable condition.
[2022-11-29 12:22] VITALS: BP 169/94; PULSE 108; RESP 22; TEMP 36.9; O2SAT 92
[2022-11-29 12:27] VITALS: BP 181/93; PULSE 91; RESP 20; O2SAT 94
[2022-11-29] MEDS: oxyCODONE HCl Immed Release 5 MG TABLET PO (12:30)
[2022-11-29 12:32] VITALS: BP 171/88; PULSE 90; RESP 17; O2SAT 94
[2022-11-29 12:37] VITALS: BP 173/98; PULSE 85; RESP 16; O2SAT 93
[2022-11-29 12:58] VITALS: BP 175/97; PULSE 79; RESP 19; TEMP 36.7; O2SAT 94
== END 2022-11-29 13:59 | disposition home or self-care (01) ==
PROVIDERS: PCP Internal Medicine; Visit Provider Obstetrics & Gynecology
PROC: 0UDB8ZZ Extraction of Endometrium, Via Natural or Artificial Opening Endoscopic (ICD-10-PCS; CPT 58558; principal; 2022-11-29 11:20)
DX: N95.0 Postmenopausal bleeding (principal); D25.0 Submucous leiomyoma of uterus; I10 Essential (primary) hypertension
CPT/HCPCS: 58145; 58558; 88305; J2370; J2371; J2405; J3010

== ENCOUNTER → 2022-11-29 08:50 | Outpatient (BNV) | payer OTHER, SELFPAY | PROVIDERS: PCP Internal Medicine; Visit Provider Obstetrics & Gynecology | DX: N95.0 Postmenopausal bleeding (principal) | CPT/HCPCS: 58561 ==

== ENCOUNTER 2022-12-19 11:39 | Outpatient (AMB) | payer OTHER, SELFPAY ==
--- NOTE | 2022-12-19 11:43 | MHC.OFFVIS ---
Intake Intake Visit Reasons: post op Allergies No Known Allergies Allergy (Verified 11/29/22 09:40) HPI HPI Comments History of Present Illness Details The patient is presenting post hysteroscopy D&C no complaints minimal vaginal bleeding no feverishness chills or abdominal pain. The pathology showed the following: A. Submucosal myoma, excision: Fragments of benign smooth muscle consistent with submucosal leiomyoma, and benign proliferative endometrium; no atypia or carcinoma. B. Endometrium, curettage: Fragments of benign proliferative endometrium and fragments of benign squamous and endocervical glandular epithelium; no atypia or carcinoma. [facility] Medical History Depression Ectopic Extreme obesity Hx of sleep apnea Hypertension Surgical History History of hernia surgery Hx of adenoidectomy Hx of myringotomy Hx of oral surgery Family History Mother History of breast cancer Diabetes Obesity Son No problems noted. Daughter No problems noted. Social History Alcohol intake: current Alcohol intake frequency: holidays/special occasions only Alcohol type: beer and wine Patient Tobacco Use Status: Current everyday Tobacco user Tobacco use type: Cigarette Cigarettes Per Day: 2 Years Smoked: 30 Female Reproductive History Menstrual Age of Menarche: 11 Review of Systems Const All systems reviewed & are unremarkable except as noted in HPI and below Reports as per HPI and Reports no additional complaints GI Reports no additional complaints Reports no additional complaints Assessment & Plan Assessment & Plan (1) PMB (postmenopausal bleeding): Comment: Myomas status post hysteroscopic myomectomy D&C Proliferative endometrium Code(s): N95.0 - Postmenopausal bleeding Plan: Mammogram ordered. Discussed with the patient the results of the pathology of the endometrial scrapings showing proliferative endometrium. Discussed with the patient the sensitivity, specificity, positive and negative predictive value, of endometrial biopsy in detecting endometrial pathology including but not limited to endometrial hyperplasia, cancer and other pathology; in addition discussed the patient the pathology of the endometrium in post menopause is associated with an increase in the risk of endometrial hyperplasia and malignancy in patient with preferred of endometrial pathology in menopause. Recommended to the patient progesterone treatment , levo norgestrel IUD for p.o. progestins in addition to repeat endometrial biopsy every 3 months for a year. All pros and cons, risks and benefits of each were discussed with the patient. The patient decided to proceed with Mirena IUD. so a more detailed discussion about it was conducted including mechanism of action, risks (uterine perforation, infection, injury to bladder, bowel, displacement, increase in the risk of breast cancer and others) benefits (decrease the risk of future endometrial hyperplasia and carcinoma of the endometrium ...). GC/CT will be taken next visit and the patient was instructed to to schedule Mirena IUD insertion renetta and to schedule her next screening mammogram renetta; in addition , recommended repeat endometrial biopsy every 3 months for 1 year. Instructed the patient to call in case is vaginal bleeding bleeding recurs, schedule endometrial biopsy in 3 months and IUD insertion within week All questions answered and the patient verbalized understanding and agreed with the plan. Orders: Orders MM screening mammo BI Today Z12.31 - Encounter for screening mammogram for malignant neoplasm of breast Coding Level of Care Code Est Pt Level 3 (71969) Diagnoses PMB (postmenopausal bleeding) N95.0
== END 2022-12-19 11:57 | disposition home or self-care (01) ==
LOC: HO.HWS 11:39
PROVIDERS: PCP Internal Medicine; Visit Provider Obstetrics & Gynecology
DX: N95.0 Postmenopausal bleeding (principal)
CPT/HCPCS: 99213

== ENCOUNTER → 2022-12-19 11:39 | Outpatient (BNVA) | payer OTHER, SELFPAY | PROVIDERS: PCP Internal Medicine; Visit Provider Obstetrics & Gynecology | DX: N95.0 Postmenopausal bleeding (principal) | CPT/HCPCS: 99212 ==

== ENCOUNTER 2023-01-05 11:01 | Outpatient (REF) | payer OTHER, SELFPAY | END 2023-01-05 11:02 | disposition home or self-care (01) | LOC: HO.HAP 11:01 | PROVIDERS: Visit Provider Internal Medicine | DX: Z46.1 Encounter for fitting and adjustment of hearing aid (principal); H90.6 Mixed conductive and sensorineural hearing loss, bilateral | CPT/HCPCS: 92593 ==

== ENCOUNTER 2023-01-05 11:15 | Outpatient (REF) | payer OTHER, SELFPAY ==
--- NOTE | ~2023-01-05 | US_ITS ---
EXAMINATION: US PELVIS COMPLETE CLINICAL INFORMATION: Postmenopausal bleeding. COMPARISON: Pelvic ultrasound dated 06/14/2022. TECHNIQUE: Transabdominal and transvaginal imaging were performed. Imaging is limited by body habitus. FINDINGS: The uterus is of normal size and echogenicity, measuring 8.7 x 4.6 x 5.7 cm. The uterus is anteverted and anteflexed. A regular, homogeneous endometrium is identified measuring 0.6 cm. FIBROIDS: There are 3 fibroids seen. 1. Location: Anterior leftward fundus, myometrial. Size: 2.1 x 1.8 x 2.1 cm. 2.1 x 2.0 x 2.9 cm. Fibroid characteristics: Hypoechoic. 2. Location: Rightward mid body, subserosal. Size: 4.2 x 4.0 x 3.6 cm. Prior: 3.4 x 3.4 x 2.8 cm. Fibroid characteristics: Heterogeneous echotexture comment calcifications. 3. Location: Anterior body, subendometrial. Size: 2.4 x 1.9 x 2.3 cm. Prior: Not seen. Fibroid characteristics: Isoechoic. Both ovaries are nonvisualized. There is no pelvic free fluid. No evidence of mass is seen. US/US pelvic and transvaginal IMPRESSION: 1. There are uterine fibroids, as detailed. 2. There is postmenopausal borderline thickening of the endometrial stripe. Gynecology evaluation and management are recommended, with consideration for tissue sampling, if clinically indicated. 3. The ovaries are nonvisualized.
== END 2023-01-05 11:16 | disposition home or self-care (01) ==
LOC: HO.US 11:15
PROVIDERS: PCP Internal Medicine; Visit Provider Obstetrics & Gynecology
DX: N95.0 Postmenopausal bleeding (principal)
CPT/HCPCS: 76830; 76856

== ENCOUNTER 2023-03-22 09:57 | Outpatient (REF) | payer OTHER, SELFPAY | END 2023-03-22 09:58 | disposition home or self-care (01) | LOC: HO.HAP 09:57 | PROVIDERS: Visit Provider Internal Medicine | DX: Z13.89 Encounter for screening for other disorder (principal) ==

== ENCOUNTER 2023-03-23 11:40 | Outpatient (REF) | payer OTHER, SELFPAY | END 2023-03-23 11:41 | disposition home or self-care (01) | LOC: HO.HAP 11:40 | PROVIDERS: Visit Provider Internal Medicine | DX: Z46.1 Encounter for fitting and adjustment of hearing aid (principal); H90.6 Mixed conductive and sensorineural hearing loss, bilateral | CPT/HCPCS: 92593; 99499 ==

== ENCOUNTER 2023-03-28 12:44 | Outpatient (AMB) | payer OTHER, SELFPAY ==
--- NOTE | 2023-03-28 12:59 | MHC.OFFVIS ---
Intake Vital Signs 03/28/23 13:05 Height 5 ft 2 in Weight 358 lb BMI 65.5 BP 132/86 Intake Visit Reasons: IUD Insertion/US follow up/DO NOT RS Apartment Community Assistant Manager Required: No Information Interpreted: non-clinical & clinical Accompanied by: Self / Same As Patient Allergies No Known Allergies Allergy (Verified 03/28/23 13:06) Post menopausal: Yes HPI HPI Comments History of Present Illness Details The patient is presenting for follow-up declining IUD insertion for proliferative endometrium seen on D&C pathology for postmenopausal bleeding, concerned about 3 uterine myomas and risk of Al sarcoma addition the patient is complaining of pelvic pain, bladder pressure and is requesting surgical management . The pathology on 12/03 showed the following: A. Submucosal myoma, excision: Fragments of benign smooth muscle consistent with submucosal leiomyoma, and benign proliferative endometrium; no atypia or carcinoma. B. Endometrium, curettage: Fragments of benign proliferative endometrium and fragments of benign squamous and endocervical glandular epithelium; no atypia or carcinoma Last co testing done in 12/03 was negative Last pelvic ultrasound in 01/03 showed the following: The uterus is of normal size and echogenicity, measuring 8.7 x 4.6 x 5.7 cm. The uterus is anteverted and anteflexed. A regular, homogeneous endometrium is identified measuring 0.6 cm. FIBROIDS: There are 3 fibroids seen. 1. Location: Anterior leftward fundus, myometrial. Size: 2.1 x 1.8 x 2.1 cm. 2.1 x 2.0 x 2.9 cm. Fibroid characteristics: Hypoechoic. 2. Location: Rightward mid body, subserosal. Size: 4.2 x 4.0 x 3.6 cm. Prior: 3.4 x 3.4 x 2.8 cm. Fibroid characteristics: Heterogeneous echotexture comment calcifications. 3. Location: Anterior body, subendometrial. Size: 2.4 x 1.9 x 2.3 cm. Prior: Not seen. Fibroid characteristics: Isoechoic. Both ovaries are nonvisualized. There is no pelvic free fluid. No evidence of mass is seen. [facility] Medical History Depression Hx of sleep apnea Extreme obesity Ectopic Hypertension Surgical History Hx of myringotomy Hx of oral surgery Hx of adenoidectomy History of hernia surgery Family History Mother History of breast cancer Diabetes Obesity Son No problems noted. Daughter No problems noted. Social History Alcohol intake: current Alcohol intake frequency: holidays/special occasions only Alcohol type: beer and wine Patient Tobacco Use Status: Current everyday Tobacco user Tobacco use type: Cigarette Cigarettes Per Day: 2 Years Smoked: 30 Female Reproductive History Menstrual Age of Menarche: 11 Review of Systems Const All systems reviewed & are unremarkable except as noted in HPI and below Reports as per HPI and Reports no additional complaints GI Reports no additional complaints Reports no additional complaints Physical Exam Vital Signs: Last Vital Signs BP 132/86 03/28/23 13:05 BMI result Body Mass Index 65.5 Assessment & Plan Assessment & Plan (1) PMB (postmenopausal bleeding): Comment: Myomas Proliferative endometrium Code(s): N95.0 - Postmenopausal bleeding Plan: Discussed with the patient the different types of hysterectomies including, vaginal, laparoscopic assisted vaginal, robotic assisted laparoscopic,& abdominal with BSO. All pros, cons, r/b of each approach were discussed the patient including evidence that morbidity is less and recovery is shorter with minimally invasive approaches to hysterectomy. Discussed with the patient the lack of availability of the robot DaVinci robot and/or minimally invasive cnc operator specialist at [facility]. Will refer to [facility] for minimally invasive hysterectomy. All questions answered, the patient verbalized understanding. Instructed the patient to call our office back in case a referral appointment is not scheduled, missed or canceled so that we will assist on rescheduling another appointment, the patient verbalized understanding agreed with the plan. Coding Level of Care Code Est Pt Level 3 (42031) Diagnoses PMB (postmenopausal bleeding) N95.0
[2023-03-28 13:05] VITALS: BP 132/86; BMI 65.5
== END 2023-03-28 13:22 | disposition home or self-care (01) ==
LOC: HO.HWS 12:44
PROVIDERS: PCP Internal Medicine; Visit Provider Obstetrics & Gynecology
DX: N95.0 Postmenopausal bleeding (principal)
CPT/HCPCS: 99213

== ENCOUNTER → 2023-03-28 12:44 | Outpatient (BNVA) | payer OTHER, SELFPAY | PROVIDERS: PCP Internal Medicine; Visit Provider Obstetrics & Gynecology | DX: N95.0 Postmenopausal bleeding (principal) | CPT/HCPCS: 99212 ==

== ENCOUNTER 2023-05-14 09:16 | Emergency (ER) | payer OTHER, SELFPAY ==
[2023-05-14 09:22] VITALS: BP 147/90; PULSE 97; RESP 20; TEMP 36.8; O2SAT 98; BMI 63.7
[2023-05-14 10:06] LABS: IDNOW Serial# 08D9AD1C; Strep A Nucleic Acid Negative (Negative)
[2023-05-14 10:07] LABS: IDNOW Serial# 9DB6401D; Influenza A Negative (Negative); Influenza B2 Negative (Negative)
[2023-05-14 10:30] LABS: COVID-19 Test Negative (Negative); IDNOW Serial# 08D9AD1C
--- NOTE | 2023-05-14 11:35 | ED.URI ---
HPI - URI/Sore Throat General Chief Complaint: Upper Respiratory Symptoms Stated Complaint: Diff breathing/Headache/Weakness Time Seen by Provider: 05/14/23 11:13 Source: patient Mode of arrival: ambulatory Limitations: no limitations History of Present Illness HPI Narrative: Patient is a 52-year-old female yes history of HTN, major depressive disorder presenting to the emergency department with complaint left ear pain, shortness of breath, generalized body aches and headache and sore throat for a few days. Patient felt her throat was moved more swollen today. She reports subjective fevers but has not checked her temperature with a thermometer. Denies any abdominal pain, nausea, vomiting, diarrhea. Denies chest pain, palpitations. States her primary concern is left ear pain. She wears a hearing aid to left ear. MD elicited complaint: other (ear pain) Onset (ago): day(s) Consistency: constant Severity: moderate Able to tolerate fluids by mouth: Yes Exacerbating factors: supine positioning Relieving factors: NSAID Associated symptoms: chills, headache, sore throat, shortness of breath and ear pain Treatments prior to arrival: acetaminophen and ibuprofen Related Data Home Medications Medication Instructions Recorded Confirmed aspirin 81 mg tablet,delayed 81 mg PO QAM 10/25/20 11/29/22 release bupropion HCl 200 mg tablet,12 hr 200 mg PO DAILY 10/25/20 11/29/22 sustained-release hydrochlorothiazide 12.5 mg capsule 12.5 mg PO DAILY 10/25/20 11/29/22 sertraline 25 mg tablet 25 mg PO DAILY 11/09/22 11/29/22 Previous Rx's Medication Instructions Recorded amoxicillin 875 mg tablet 875 mg PO BID #14 tabs 05/14/23 Allergies Allergy/AdvReac Type Severity Reaction Status Date / Time No Known Allergies Allergy Verified 05/14/23 09:25 Review of Systems Review of Systems: As per HPI Yes all other systems are reviewed and are negative Constitutional: Constitutional: Reports as per HPI PMFSH Past Medical History Medical History Depression Hx of sleep apnea Extreme obesity Ectopic Hypertension Surgical History Hx of myringotomy Hx of oral surgery Hx of adenoidectomy History of hernia surgery Family History Family History Mother History of breast cancer Diabetes Obesity Son No problems noted. Daughter No problems noted. Social History Social History Alcohol intake: current Alcohol intake frequency: holidays/special occasions only Alcohol type: beer and wine Patient Tobacco Use Status: Current everyday Tobacco user Tobacco use type: Cigarette Cigarettes Per Day: 2 Years Smoked: 30 Advance Directives: No Advance Directives Information Provided: No Physical Exam Vital Signs: Vital Signs: Last Vital Signs Temp 98.2 F 05/14/23 09:22 Pulse 97 05/14/23 09:22 Resp 20 05/14/23 09:22 BP 147/90 H 05/14/23 09:22 Pulse Ox 98 05/14/23 09:22 O2 Del Method Room Air 05/14/23 09:22 BMI result Body Mass Index 63.7 Vital signs have been reviewed and appear to be correct. Blood pressure elevated. Heart rate normal. Respiratory rate normal. Temperature normal. Oxygen saturation normal. Const: General: cooperative and no acute distress Orientation/consciousness: oriented to person, oriented to place, oriented to time and patient oriented x3 Limitations: no limitations HEENT: Head: Yes normocephalic and Yes atraumatic Ears: external ears normal, EAC's normal and TM abnormal erythematous bilateral and with fluid behind the TM on the left General nose exam: Normal external nose present Face and sinus: Yes face symmetric Mouth: oropharynx normal, moist mucous membranes and no trismus Throat: Yes posterior oropharynx normal, Yes uvula midline, No uvular edema and Yes other (managing secretions without difficulty) Eyes: Pupils: Equal, round and reactive pupils present Neck: Neck: Yes normal visual inspection and Yes supple Resp: Effort & Inspection: normal respiratory effort and able to speak in complete sentences Auscultation: clear to auscultation bilaterally Cardio: Rate: regular rate Rhythm: regular rhythm Heart sounds: S1 normal heart sound present and S2 normal heart sound present GI: Palpation (GI): Soft to palpation and nontender Auscultation: normoactive bowel sounds : General: Yes no CVA tenderness Back/Spine/Pelvis: Back: no CVA tenderness Skin: General skin exam: elasticity normal and turgor normal Neuro: General: oriented to person, oriented to place, oriented to time, patient oriented x3, moves all extremities, no focal motor deficits and CN's II-XI intact bilaterally Cranial nerves: Yes Equal, round and reactive pupils present Cognition (Neuro): normal cognition Extrem: General: Yes full ROM, Yes no pedal edema and Yes no calf tenderness Psych: Mental Status: mental status grossly normal Affect: normal affect Thought process: Normal thought process present Medical Decision Making Medical Decision Making [facility] Narrative: Patient is a 52-year-old female yes history of HTN, major depressive disorder presenting to the emergency department with complaint left ear pain, shortness of breath, generalized body aches and headache and sore throat for a few days. On exam patient is awake, A+Ox3, VS WNL, afebrile, normal neurological exam without focal deficits, physical exam findings as above. Given reported symptoms and physical exam findings, initial differential includes otitis media, otitis externa, strep versus viral pharyngitis, viral illness, COVID, flu. Swabs for strep, flu, COVID all negative, patient updated on results. Physical exam findings consistent with left otitis media, will treat patient with amoxicillin as she denies recent antibiotic use. Discussed with patient alternating Tylenol and ibuprofen as needed for discomfort, ensure adequate rest, adequate fluid intake. Instructed patient to follow-up with primary care provider. Return precautions discussed. Patient verbalized understanding of and agreement with plan. Differential Diagnosis Differential Diagnoses: The differential diagnosis associated with the presentation includes As per [facility] Lab Data [facility] Lab Attestation statement: I reviewed the patient's lab results. As per [facility] Labs: Lab Results 05/14/23 Range/Units 09:44 COVID-19 (DANNY) Negative (Negative) COVID-19 Clin Com See Note Influenza Type A (RAFAELA) Negative (Negative) Influenza Type B (RAFAELA) Negative (Negative) Influenza A & B Note See Note S. pyogenes GrpA RAFAELA Negative (Negative) External Record Review External record reviewed: Inpatient record, Office record and Outpatient record Prescription Management I considered prescription management with: Antibiotic Discharge Plan Discharge Clinical Impression: Acute otitis media Qualifiers: Laterality: left Patient Disposition: Home, Self-Care Instructions: Ear Infection (ED) Additional Instructions: You were evaluated in the emergency department today for ear pain. Your evaluation suggests that your pain is due to an ear infection. Please take your prescribed antibiotics as directed for the full course of the medication. Please follow up with your primary care provider within two days. Return to the emergency department if you experience hearing loss, discharge from your ear, headaches, fevers, recurrent vomiting, or any other concerning symptoms. Prescriptions: New amoxicillin 875 mg tablet 875 mg PO BID Qty: 14 0RF No Action bupropion HCl 200 mg tablet sustained-release 12 hr 200 mg PO DAILY aspirin 81 mg tablet,delayed release (DR/EC) 81 mg PO QAM hydrochlorothiazide 12.5 mg capsule 12.5 mg PO DAILY sertraline 25 mg tablet 25 mg PO DAILY
== END 2023-05-14 12:30 | disposition home or self-care (01) ==
PROVIDERS: Emergency Provider Emergency Medicine; PCP Internal Medicine
DX: H66.92 Otitis media, unspecified, left ear (principal); Z11.52 Encounter for screening for COVID-19; J02.9 Acute pharyngitis, unspecified; I10 Essential (primary) hypertension; F17.210 Nicotine dependence, cigarettes, uncomplicated
CPT/HCPCS: 87502; 87635; 87651; 99283

== ENCOUNTER 2023-06-05 11:09 | Outpatient (REF) | payer OTHER, SELFPAY ==
--- NOTE | 2023-06-05 15:07 | MHC.AU.HA3 ---
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 Loss and Damage Warranty: [facility] Service Plan: Battery Size: 13 Termite Helper/Slim Tube: Size #1 slim tube Earmold/Dome/CShell/SlimTip:Medium open dome Type of Wax Guard: Dispensed By: [facility] Date of Fittin09/23/2014 - Reprogrammed for Freda Left Ear: Make, Model, Color, Serial Number: Manuel Mcdowell [id number] SN: [id number] Color: [place] brown Father's old hearing aids reprogrammed for Freda - Freda's original hearing aids lost 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 Found domes and slim tubes clogged with wax. Replaced slim tubes and domes, aids cleaned, listening check positive. Recommendations: Recommendations: Please contact our clinic with any questions or concerns. Diagnosis Code(s): Primary Diagnosis: H90.6 Mixed Hearing Loss, Bilateral Signature: Provider: Nova Delgado, [facility]
== END 2023-06-05 11:10 | disposition home or self-care (01) ==
LOC: HO.HAP 11:09
PROVIDERS: Visit Provider Internal Medicine
DX: Z13.89 Encounter for screening for other disorder (principal)
CPT/HCPCS: 92593; 99499

== ENCOUNTER 2023-06-07 12:05 | Emergency (ER) | payer OTHER, SELFPAY ==
[2023-06-07 12:19] VITALS: BP 146/84; PULSE 93; RESP 20; TEMP 37.1; O2SAT 96; BMI 67.8
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
== END 2023-06-07 12:53 | disposition home or self-care (01) ==
PROVIDERS: Emergency Provider Emergency Medicine; PCP Internal Medicine
DX: S13.4XXA Sprain of ligaments of cervical spine, initial encounter (principal); M62.838 Other muscle spasm; M54.2 Cervicalgia; V43.02XA Car driver injured in collision with other type car in nontraffic accident, initial encounter; Y93.9 Activity, unspecified; Y92.481 Parking lot as the place of occurrence of the external cause; Y99.8 Other external cause status
CPT/HCPCS: 99282; 99283

== ENCOUNTER 2023-06-13 09:38 | Outpatient (REF) | payer OTHER, SELFPAY ==
[2023-06-13 10:13] LABS: MANUAL DIFF FLAG NO
[2023-06-13 10:34] LABS: Basophils Percent Auto 0.4 % (0-2); Eosinophils Absolute Auto 0.3 X10*3/uL (0.0-0.4); Eosinophils Percent Auto 4.5 % (0-4); Hematocrit 40.7 % (37.0-47.0); Hemoglobin 13.6 g/dl (12.0-16.0); Imm Gran Abs Auto 0.03 X10*3/uL (0.00-0.03); Imm Gran Pct Auto 0.4 % (0.0-0.4); Lymphocytes Absolute Auto 2.6 X10*3/uL (1.2-4.9); Lymphocytes Percent Auto 35.6 % (20-40); Mean Corpuscular HGB Conc 33.4 g/dl (31.0-35.0); Mean Corpuscular Hemoglobin 30.8 pg (27.0-33.0); Mean Corpuscular Volume 92.3 fL (80.0-98.0); Mean Platelet Volume 8.9 fL (9.4-12.3); Monocytes Absolute Auto 0.7 X10*3/uL (0.1-1.2); Neutrophils Absolute Auto 3.7 x10*3/uL (2.0-8.3); Neutrophils Percent Auto 50.1 % (45-73); Platelet Count 326 X10*3/uL (160-400); Red Blood Count 4.41 X10*6/uL (4.20-5.50); Red Cell Distribution Width 12.8 % (11.0-16.0); White Blood Count 7.3 X10*3/uL (4.8-10.8)
[2023-06-13 11:24] LABS: Alanine Aminotransferase 17 U/L (0-31); Albumin Level 3.8 g/dL (3.5-5.0); Alkaline Phosphatase 61 U/L (39-117); Anion Gap 15 (12-20); Aspartate Amino Transferase 14 U/L (5-31); Bilirubin Total 0.3 mg/dL (0.0-1.0); Blood Urea Nitrogen 13 mg/dL (9-16); Calcium 9.5 mg/dL (8.4-10.2); Carbon Dioxide 29 mmol/L (22-29); Chloride 102 mmol/L (96-108); Cholesterol 208 mg/dL (<200); Estimated Glomerular Filt Rate > 60; Glucose Fasting 114 mg/dL (60-99); HDL Cholesterol 40 mg/dL (>40); LDL Cholesterol Calculated 141 mg/dL (<100); Sodium 142 mmol/L (135-145); Total Protein 7.3 g/dL (6.5-8.0); Triglycerides 137 mg/dL (<150)
[2023-06-13 11:31] LABS: Thyroid Stimulating Hormone 0.31 uIU/mL (0.32-4.0)
== END 2023-06-13 09:39 | disposition home or self-care (01) ==
LOC: HO.LAB 09:38
PROVIDERS: PCP Internal Medicine; Visit Provider Internal Medicine
DX: I10 Essential (primary) hypertension (principal); E78.00 Pure hypercholesterolemia, unspecified; E66.01 Morbid (severe) obesity due to excess calories; N18.9 Chronic kidney disease, unspecified; M17.0 Bilateral primary osteoarthritis of knee
CPT/HCPCS: 36415; 80053; 80061; 84439; 84443; 85025

== ENCOUNTER 2023-06-13 10:31 | Outpatient (REF) | payer OTHER, SELFPAY | END 2023-06-13 10:32 | disposition home or self-care (01) | LOC: HO.HAP 10:31 | PROVIDERS: Visit Provider Internal Medicine | DX: Z46.1 Encounter for fitting and adjustment of hearing aid (principal); H90.3 Sensorineural hearing loss, bilateral | CPT/HCPCS: 92593; 99499 ==

== ENCOUNTER 2023-06-14 14:57 | Outpatient (REF) | payer OTHER, SELFPAY | END 2023-06-14 14:58 | disposition home or self-care (01) | LOC: HO.MAMMO 14:57 | PROVIDERS: PCP Internal Medicine; Visit Provider Obstetrics & Gynecology | DX: Z12.31 Encounter for screening mammogram for malignant neoplasm of breast (principal) | CPT/HCPCS: 77063; 77067 ==

== ENCOUNTER → 2023-06-14 15:00 | Outpatient (BNV) | payer OTHER, SELFPAY | PROVIDERS: PCP Internal Medicine; Visit Provider Radiology Diagnostic Radiology | DX: Z12.31 Encounter for screening mammogram for malignant neoplasm of breast (principal) | CPT/HCPCS: 77063; 77067 ==

== ENCOUNTER 2023-08-09 13:38 | Outpatient (REF) | payer OTHER, SELFPAY ==
--- NOTE | ~2023-08-09 | US_ITS ---
EXAMINATION: US PELVIS CLINICAL INFORMATION: Leiomyoma of the uterus. COMPARISON: Multiple prior pelvic ultrasounds most recently 01/05/2023. TECHNIQUE: Ultrasound of the pelvis is performed using both transabdominal and transvaginal transducers along with Doppler. Transvaginal imaging is performed due to inadequate visualization transabdominally. Exam is limited secondary to overlying bowel gas and body habitus. In addition, the patient asked to end the transvaginal exam before completion. FINDINGS: Uterus: The uterus is retroverted and measures 8.0 x 3.9 x 5.2 cm. The double wall endometrial thickness is 0.4 mm. Nabothian cysts are present in the cervix. The uterus is smooth in contour and has normal myometrial echogenicity. Two uterine fibroids are seen, one measuring 1.9 cm at the fundus (previously 2.1 cm) with another measuring 2.8 cm anteriorly (previously 4.2 cm). A previously noted fibroid measuring 2.4 cm is not identified. Adnexa: Neither ovary could be seen. No free fluid was present in the cul-de-sac. US/US pelvic and transvaginal IMPRESSION: Uterine fibroids as described above.
== END 2023-08-09 13:39 | disposition home or self-care (01) ==
LOC: HO.US 13:38
PROVIDERS: PCP Internal Medicine; Visit Provider Obstetrics & Gynecology
DX: D25.9 Leiomyoma of uterus, unspecified (principal)
CPT/HCPCS: 76830; 76856

== ENCOUNTER 2023-09-03 13:54 | Outpatient (REF) | payer OTHER, SELFPAY ==
[2023-09-03 14:18] LABS: Estimated Average Glucose 128 mg/dL; Hemoglobin A1c % 6.1 % (<6.0)
[2023-09-03 14:33] LABS: Anion Gap 14 (12-20); Blood Urea Nitrogen 10 mg/dL (9-16); Calcium 9.8 mg/dL (8.4-10.2); Carbon Dioxide 28 mmol/L (22-29); Chloride 102 mmol/L (96-108); Estimated Glomerular Filt Rate 60; Glucose Random 124 mg/dL (60-115); Potassium 4.2 mmol/L (3.3-5.1); Sodium 140 mmol/L (135-145)
[2023-09-03 15:37] LABS: Appearance Urine Clear; Color Urine Yellow; Glucose Urine UA Negative (Negative); Leukocyte Esterase Urine Trace (Negative); Nitrite Urine Negative (Negative); PH 6.5 (5.0-9.0); Specific Gravity - Urine 1.015 (1.005-1.025); UMIC TRIGGER UA YES; Urine Blood Negative (Negative); Urine Ketones Negative (Negative); Urine Protein Negative (Neg-Trace)
[2023-09-03 15:41] LABS: Creatinine Urine 119.82 mg/dL; Microalbum/Creatinine Ratio Ur 59.2 ug/mg cr (<30)
[2023-09-03 15:42] LABS: Bacteria Urine None Seen (None Seen); Hyaline Casts Urine 0-2 /LPF (0-2); RBC Urine 0-2 /HPF (0-2)
[2023-09-04 08:44] LABS: Triiodothyronine T3 Free 3.3 pg/mL (2.3-4.2)
== END 2023-09-03 13:55 | disposition home or self-care (01) ==
LOC: HO.LAB 13:54
PROVIDERS: PCP Internal Medicine; Visit Provider Internal Medicine
DX: I10 Essential (primary) hypertension (principal); R73.03 Prediabetes
CPT/HCPCS: 36415; 80048; 81001; 82043; 82570; 83036; 84481; 93005; 99202

== ENCOUNTER 2023-09-03 14:31 | Outpatient (AMB) | payer OTHER, SELFPAY ==
--- NOTE | 2023-09-03 15:04 | A.OFFVIS_ITS ---
Vital Signs 09/03/23 15:07 Height 5 ft 2 in Weight 348 lb BMI 63.6 BP 130/78 Blood Pressure Location Lt brachial Position Sitting Pulse 75 Pulse Source Monitor Pulse Oximetry (%) 97 Oxygen Delivery Method Room Air Intake Visit Reasons: [employer]/ [employer]/ preop/ htn Allergies No Known Allergies Allergy (Verified 06/07/23 12:22) Medication List - Last Reconciled 09/03/23 by Mateo Hair MD aspirin 81 mg PO QAM bupropion HCl SR 200 mg PO DAILY cyclobenzaprine 10 mg PO TID PRN hydrochlorothiazide 12.5 mg PO DAILY lidocaine 5% (Lidoderm) 1 patch topical DAILY sertraline 25 mg PO DAILY HPI Comments Details: Freda is here for consultation regarding preoperative stratification for hysterectomy. Numerous cardiovascular risk factors including morbid obesity, hypertension, smoking. With activity, she states she does get short of breath. No clear anginal-type chest pains. No history of any coronary disease, myocardial infarction or cardiomyopathy. [facility] Medical History Depression Hx of sleep apnea Extreme obesity Ectopic Hypertension Surgical History Hx of myringotomy Hx of oral surgery Hx of adenoidectomy History of hernia surgery Family History Mother History of breast cancer Diabetes Obesity Son No problems noted. Daughter No problems noted. Social History Alcohol intake: current Alcohol intake frequency: holidays/special occasions only Alcohol type: beer and wine Patient Tobacco Use Status: Current everyday Tobacco user Tobacco use type: Cigarette Cigarettes Per Day: 2 Years Smoked: 30 Female Reproductive History Menstrual Age of Menarche: 11 Review of Systems Const Denies weakness ENT Denies dizziness Card Denies chest pain, Denies chest pain with activity, Denies syncope, Denies rapid heart rate, Denies pedal edema, Denies edema, Denies leg edema, Denies lightheadedness, Denies palpitations, Denies dyspnea, Denies dyspnea on exertion and Denies orthopnea Resp Denies cough, Denies dyspnea and Denies dyspnea on exertion GI Denies hematochezia and Denies change in stool character Musc Denies abnormal gait, Denies muscle cramps, Denies muscle weakness, Denies numbness, Denies radiating pain into limb and Denies tingling Neuro Denies abnormal gait, Denies dizziness, Denies syncope, Denies numbness, Denies tingling and Denies weakness Endo Denies palpitations Physical Exam Vital Signs: Last Vital Signs Pulse 75 09/03/23 15:07 BP 130/78 09/03/23 15:07 Pulse Ox 97 09/03/23 15:07 Oxygen Delivery Method Room Air 09/03/23 15:07 BMI result Body Mass Index 63.6 Const General: comfortable and no acute distress Orientation/consciousness: patient oriented x3 HEENT Other: Unremarkable Head: Yes normal to inspection Neck Neck: Yes normal visual inspection Chest Chest palpation & inspection: normal inspection of the chest Resp Auscultation: clear to auscultation bilaterally Cardio Palpation: normal PMI Heart sounds: S1 normal heart sound present, S2 normal heart sound present, no gallops, no murmurs and no rubs GI Palpation (GI): Soft to palpation Back/Spine/Pelvis Other: unremarkable Skin General skin exam: no rashes or lesions noted Neuro General: patient oriented x3 Extrem General: Yes normal to inspection Psych Mental Status: mental status grossly normal Office Procedures EKG Details: EKG with sinus rhythm at 75/Min; leftward axis; sinus arrhythmia; [place] [id number], Complete Assessment & Plan Assessment & Plan (1) Preoperative cardiovascular examination: Code(s): Z01.810 - Encounter for preprocedural cardiovascular examination Category: Medical (2) Morbid exogenous obesity: Code(s): E66.01 - Morbid (severe) obesity due to excess calories Category: Medical (3) HTN (hypertension) with goal to be determined: Code(s): I10 - Essential (primary) hypertension Category: Medical (4) Smoker: Code(s): F17.200 - Nicotine dependence, unspecified, uncomplicated Category: Social Hx Plan Based on her risk factors, will plan further workup before noncardiac surgery. We can get an echocardiogram and coronary CTA. Follow-up after the above. Orders: Orders CT Cardiac Coronary Angio Today I25.10 - Atherosclerotic heart disease of nez perce coronary artery without angina pectoris Basic Metabolic Panel Today Z01.810 - Encounter for preprocedural cardiovascular examination CA echo transthoracic complete Today R06.02 - Shortness of breath
[2023-09-03 15:07] VITALS: BP 130/78; PULSE 75; O2SAT 97; BMI 63.6
== END 2023-09-03 15:41 | disposition home or self-care (01) ==
PROVIDERS: PCP Internal Medicine; Visit Provider Internal Medicine
DX: Z01.810 Encounter for preprocedural cardiovascular examination (principal); E66.01 Morbid (severe) obesity due to excess calories; I10 Essential (primary) hypertension; F17.200 Nicotine dependence, unspecified, uncomplicated
CPT/HCPCS: 93010; 99204

== ENCOUNTER 2023-10-01 08:38 | Outpatient (AMB) | payer OTHER, SELFPAY ==
--- NOTE | 2023-10-01 08:42 | MHC.OFFVIS ---
Vital Signs 10/01/23 08:43 Height 5 ft 2 in Weight 367 lb 1.114 oz BMI 67.1 BP 118/76 Blood Pressure Location Rt radial Position Sitting Pulse 83 Pulse Source Pulse Oximeter Pulse Oximetry (%) 97 Oxygen Delivery Method Room Air Intake Visit Reasons: Pre-operative H&P Allergies No Known Allergies Allergy (Verified 10/01/23 08:46) HPI HPI Pre-operative H&P: Details: Freda is pleasant 53 year old female, current minimal smoker with 40 pack year history, with underlying HTN, severe KIARRA and morbid obesity BMI 67. She was referred by PCP for preoperative pulmonary evaluation for proposed total hysterectomy. There is no date scheduled at this time but will be performed through [facility]. At baseline, she reports dyspnea on minimal exertion, productive cough, and wheezing that has been more noticeable the last few weeks which she attributes to allergies. She denies chest tightness. She is not on a daily inhaler. She does not take any antihistamines or nasal sprays. She denies any prior history of asthma or COPD. She denies any need for prednisone, antibiotics or hospitalizations related to respiratory distress in the last 3-6 months. She reports mother, smoker, with lung cancer. She also reports prior diagnosis of severe KIARRA and would like to retry CPAP therapy as she is quite symptomatic. She reports significant daytime fatigue, nonrestorative sleep and loud snoring. She does not recall which DME company she used. She currently has a CPAP machine at home from 2020 however, she has not had supplies. HPI Comments Details: [facility] Medical History Depression Hx of sleep apnea Extreme obesity Ectopic Hypertension Surgical History Hx of myringotomy Hx of oral surgery Hx of adenoidectomy History of hernia surgery Family History (Updated 10/01/23 @ 09:37 by Ana Gerrad NP) Mother History of breast cancer Diabetes Obesity Lung cancer Son No problems noted. Daughter No problems noted. Social History (Updated 10/01/23 @ 09:37 by Ana Gerard NP) Alcohol intake: current Alcohol intake frequency: holidays/special occasions only Alcohol type: beer and wine Patient Tobacco Use Status: Current everyday Tobacco user Tobacco use type: Cigarette Cigarettes Per Day: 4 Years Smoked: 40, recently began decreasing intake Female Reproductive History Menstrual Age of Menarche: 11 Review of Systems Const Denies chills, Denies excessive sweating, Denies fever(s), Denies headache(s) and Denies night sweats Eyes Denies dry eyes, Denies irritation and Denies itchy eyes ENT Reports Normal hearing present, Denies headache(s), Reports nasal congestion, Denies nasal discharge, Denies post nasal drip and Denies sore throat Card Denies chest pain, Denies chest pain at rest, Denies chest pain with activity, Denies claudication, Denies leg edema, Reports dyspnea on exertion and Denies orthopnea Resp Denies chest congestion, Reports cough, Denies hemoptysis, Denies excessive phlegm production, Denies pain on inspiration, Denies pain with cough, Reports dyspnea on exertion, Denies stridor and Reports wheezing Musc Denies myalgias Neuro Reports Normal hearing present and Denies headache(s) Endo Denies excessive sweating Wild/Lymph Denies lymphadenopathy Aller/Immun Denies itchy eyes, Denies seasonal rhinorrhea and Reports wheezing Physical Exam Vital Signs: Last Vital Signs Pulse 83 10/01/23 08:43 BP 118/76 10/01/23 08:43 Pulse Ox 97 10/01/23 08:43 Oxygen Delivery Method Room Air 10/01/23 08:43 BMI result Body Mass Index 67.1 Const General: cooperative, healthy appearing, comfortable, no acute distress, well developed and alert Nutritional Appearance: obese morbidly obese Orientation/consciousness: patient oriented x3 Limitations: no limitations HEENT Other: right hearing aid present Head: Yes normal to inspection, Yes normocephalic and Yes atraumatic Ears: hearing grossly normal bilaterally and external ears normal Eyes General: appearance normal, both eyes and all related structures Eyelids: Yes eyelids normal Sclerae: sclerae normal EOM: EOMs intact bilaterally Neck Neck: Yes normal visual inspection and Yes no lymphadenopathy Lymphatic: no lymphadenopathy noted Chest Chest palpation & inspection: normal inspection of the chest Resp Effort & Inspection: normal respiratory effort, able to speak in complete sentences, no audible wheezes, no cough, no stridor, not tachypneic, no tripod positioning and no use of accessory muscles Auscultation: wheezes expiratory wheezes and throughout and diminished lung sounds Cardio Jugular venous distension: no JVD Rate: regular rate Rhythm: regular rhythm Skin Other: warm, dry General skin exam: no rashes or lesions noted Neuro General: patient oriented x3 Cranial nerves: Yes Normal hearing present Cognition (Neuro): normal cognition Gait exam (Neuro): Normal gait present Extrem General: Yes normal to inspection, Yes capillary refill normal, Yes no clubbing, cyanosis or edema and Yes no pedal edema Psych Appearance: grossly normal and well kempt Speech and movement: Normal speech and movement present and Clear speech present Affect: normal affect Attitude: cooperative Thought process: Normal thought process present Thought content: Normal thought content present Insight: Good insight present (Psych) Judgement: Good judgement present (Psych) Assessment & Plan Assessment & Plan (1) Dyspnea on minimal exertion: Code(s): R06.09 - Other forms of dyspnea Category: Medical (2) Environmental allergies: Code(s): Z91.09 - Other allergy status, other than to drugs and biological substances Category: Medical (3) Smoker: Code(s): F17.200 - Nicotine dependence, unspecified, uncomplicated Category: Social Hx (4) Severe obstructive sleep apnea: Code(s): G47.33 - Obstructive sleep apnea (adult) (pediatric) Category: Medical (5) Daytime somnolence: Code(s): R40.0 - Somnolence Category: Medical (6) Encounter for preoperative pulmonary examination: Code(s): Z01.811 - Encounter for preprocedural respiratory examination Category: Medical Plan Freda presents for preoperative pulmonary evaluation. She reports dyspnea on minimal exertion, productive cough with whitish sputum and wheezing that has been more pronounced the last few weeks, likely from allergies. On exam patient with faint expiratory wheezing throughout, will send in prednisone and encouraged using a daily antihistamine. Will send for RAST to assess for any allergic component. Patient likely with some degree of obstructive defect with smoking history and restrictive defect due to abdominal obesity, unclear severity. Will send for PFT to assess. Patient reports 40 pack year history of smoking, currently smoking 4 cigarettes per day over the last few months, with no prior CT chest. Will enter chest CT. Patient stated she would like to attempt CPAP therapy again as she is quite sympyomatic. Prior sleep titration study revealed severe KIARRA in 2020. However patient with 20+ lb weight gain since then. Will resend for in lab sleep titration study. Will follow up to review results to further risk stratify for upcoming total hysterectomy. All questions were answered and patient is in agreement of plan. Will follow up in 4-6 weeks or sooner if needed. Orders: Orders Immunoglobulin E Today Z91.09 - Other allergy status, other than to drugs and biological substances Complete Blood Count Auto Diff Today Z91.09 - Other allergy status, other than to drugs and biological substances CT chest wo IV con Today F17.200 - Nicotine dependence, unspecified, uncomplicated Resp Allergy Profile Region I Today Z91.09 - Other allergy status, other than to drugs and biological substances PFT pulmonary function test Today R06.09 - Other forms of dyspnea RT PSG in-lab sleep titration Today G47.33 - Obstructive sleep apnea (adult) (pediatric), R40.0 - Somnolence Medications: New prednisone 40 mg (2 x 20 mg) PO DAILY 10 tabs 0RF Coding Level of Care Code New Pt Level 4 (66622) Diagnoses Dyspnea on minimal exertion R06.09 Environmental allergies Z91.09 Smoker F17.200 Severe obstructive sleep apnea G47.33 Daytime somnolence R40.0 Encounter for preoperative pulmonary examination Z01.811
[2023-10-01 08:43] VITALS: BP 118/76; PULSE 83; O2SAT 97; BMI 67.1
== END 2023-10-01 09:14 | disposition home or self-care (01) ==
PROVIDERS: PCP Internal Medicine; Referring Provider Internal Medicine; Visit Provider Nurse Practitioner Family
DX: R06.09 Other forms of dyspnea (principal); Z91.09 Other allergy status, other than to drugs and biological substances; F17.200 Nicotine dependence, unspecified, uncomplicated; G47.33 Obstructive sleep apnea (adult) (pediatric); R40.0 Somnolence; Z01.811 Encounter for preprocedural respiratory examination
CPT/HCPCS: 99204

== ENCOUNTER 2023-10-01 08:38 | Outpatient (REF) | payer OTHER, SELFPAY ==
[2023-10-01 09:41] LABS: MANUAL DIFF FLAG NO
[2023-10-01 10:07] LABS: Basophils Percent Auto 0.4 % (0-2); Eosinophils Absolute Auto 0.4 X10*3/uL (0.0-0.4); Eosinophils Percent Auto 5.4 % (0-4); Hematocrit 40.2 % (37.0-47.0); Hemoglobin 13.3 g/dl (12.0-16.0); Imm Gran Abs Auto 0.02 X10*3/uL (0.00-0.03); Imm Gran Pct Auto 0.3 % (0.0-0.4); Lymphocytes Absolute Auto 2.6 X10*3/uL (1.2-4.9); Lymphocytes Percent Auto 35.3 % (20-40); Mean Corpuscular HGB Conc 33.1 g/dl (31.0-35.0); Mean Corpuscular Hemoglobin 30.6 pg (27.0-33.0); Mean Corpuscular Volume 92.6 fL (80.0-98.0); Mean Platelet Volume 9.4 fL (9.4-12.3); Monocytes Absolute Auto 0.6 X10*3/uL (0.1-1.2); Neutrophils Absolute Auto 3.7 x10*3/uL (2.0-8.3); Neutrophils Percent Auto 50.6 % (45-73); Platelet Count 336 X10*3/uL (160-400); Red Blood Count 4.34 X10*6/uL (4.20-5.50); Red Cell Distribution Width 12.7 % (11.0-16.0); White Blood Count 7.2 X10*3/uL (4.8-10.8)
[2023-10-01 10:52] LABS: Anion Gap 16 (12-20); Blood Urea Nitrogen 15 mg/dL (9-16); Calcium 9.4 mg/dL (8.4-10.2); Carbon Dioxide 26 mmol/L (22-29); Chloride 105 mmol/L (96-108); Estimated Glomerular Filt Rate > 60; Glucose Random 108 mg/dL (60-115); Potassium 4.1 mmol/L (3.3-5.1); Sodium 143 mmol/L (135-145)
[2023-10-03 22:04] LABS: Class Alternaria alternata 0; Class Aspergillus fumigatus 0; Class Bermuda Grass 0; Class Birch 0; Class Cat Dander 0; Class Cladosporium herbarum 0; Class Cockroach 0; Class Common Ragweed 0; Class Cottonwood 0; Class Derm. pterony 0; Class Dermatophagoides farinae 0; Class Dog Dander 0; Class Elm 0; Class Maple Box Elder 0; Class Mountain Cedar 0; Class Mouse Urine Protein 0; Class Mugwort 0; Class Oak 0; Class Penicillium crysogenum 0; Class Rough Pigweed 0; Class Sheep Sorrel 0; Class Sycamore 0; Class Timothy Grass 0; Class Walnut Tree 0; Class White Ash 0; Class White Mulberry 0; D001 IgE D pteronyssinus <0.10 kU/L; D002 - IgE D farinae <0.10 kU/L; E001 - IgE Cat Dander <0.10 kU/L; E005 - IgE Dog Dander <0.10 kU/L; E072-IgE Mouse Urine <0.10 kU/L; G002 IgE Bermuda Grass <0.10 kU/L; G006 - IgE Timothy Grass <0.10 kU/L; I006-IgE Cockroach, German <0.10 kU/L; Immunoglobulin E 44 kU/L (<OR=114); M001 IgE Penicillium chrysogen <0.10 kU/L; M002 - IgE Cladosporium herbar <0.10 kU/L; M003 - IgE Aspergillus fumigat <0.10 kU/L; M006 - IgE Alternaria alternat <0.10 kU/L; T001 IgE Maple/Box Elder <0.10 kU/L; T003 IgE Common Silver Birch <0.10 kU/L; T006 - IgE Cedar, Mountain <0.10 kU/L; T007 - IgE Oak, White <0.10 kU/L; T008 IgE Elm, American <0.10 kU/L; T010 - IgE Walnut <0.10 kU/L; T011 - IgE Maple Leaf Sycamore <0.10 kU/L; T014 - IgE Cottonwood <0.10 kU/L; T015 - IgE Ash, White <0.10 kU/L; T070 - IgE White Mulberry <0.10 kU/L; W001 - IgE Ragweed, Short <0.10 kU/L; W006 - IgE Mugwort <0.10 kU/L; W014 IgE Pigweed, Common <0.10 kU/L; W018 IgE Sheep Sorrel <0.10 kU/L
== END 2023-10-01 08:39 | disposition home or self-care (01) ==
LOC: HO.LAB 08:38
PROVIDERS: Internal Medicine; PCP Internal Medicine; Visit Provider Nurse Practitioner Family
DX: Z01.811 Encounter for preprocedural respiratory examination (principal); I10 Essential (primary) hypertension; G47.33 Obstructive sleep apnea (adult) (pediatric); E66.9 Obesity, unspecified; F17.210 Nicotine dependence, cigarettes, uncomplicated; R06.09 Other forms of dyspnea; R40.0 Somnolence; Z68.44 Body mass index [BMI] 60.0-69.9, adult; Z99.89 Dependence on other enabling machines and devices; Z91.09 Other allergy status, other than to drugs and biological substances
CPT/HCPCS: 36415; 80048; 82785; 85025; 86003; 99202

== ENCOUNTER 2023-10-04 08:41 | Outpatient (REF) | payer OTHER, SELFPAY ==
[2023-10-04 11:08] VITALS: PULSE 74; RESP 16; O2SAT 98
--- NOTE | 2023-10-04 15:28 | PFT_ITS ---
Flows: FEV1: 72 % of predicted at 1.52 L FVC: 73 % of predicted at 1.92 L FEV1/FVC: 79 % Bronchodilator response: Absent Volumes: Total lung capacity: 62 % of predicted at 2.99 L Residual volume: 70 % of predicted at 1.06 L Slow vital capacity: 58 % of predicted at 1.93 L Expiratory reserve volume: 23 % of predicted at 0.19 L Diffusion capacity: Normal Impression: Moderate restrictive ventilatory defect with no bronchodilator response. Decreased expiratory reserve volume suggests extrathoracic restriction likely secondary to abdominal obesity. MTDD
== END 2023-10-04 08:42 | disposition home or self-care (01) ==
LOC: HO.RESP 08:41
PROVIDERS: PCP Internal Medicine; Visit Provider Nurse Practitioner Family
DX: R06.09 Other forms of dyspnea (principal)
CPT/HCPCS: 94010; 94640; 94727; 94729

== ENCOUNTER → 2023-10-04 15:28 | Outpatient (BNV) | payer OTHER, SELFPAY | PROVIDERS: PCP Internal Medicine; Visit Provider Internal Medicine Pulmonary Disease | DX: R06.09 Other forms of dyspnea (principal) | CPT/HCPCS: 94060; 94727; 94729 ==

== ENCOUNTER 2023-10-15 14:55 | Outpatient (AMB) | payer OTHER, SELFPAY ==
--- NOTE | 2023-10-15 14:56 | A.OFFVIS_ITS ---
Intake Visit Reasons: U/S results Allergies No Known Allergies Allergy (Verified 10/01/23 08:46) HPI Comments Details: The patient is scheduled telehealth visits for ultrasound follow-up.The patient was initially seen few months ago for postmenopausal bleeding status post hysteroscopy D&C she was then seen for follow-up and declined Mirena IUD insertion for proliferative endometrium seen on D&C pathology for postmenopausal bleeding, was concerned about 3 uterine myomas and risk of Al sarcoma addition the patient is complaining of pelvic pain, bladder pressure and is requesting surgical management . The pathology on 12/03 showed the following: A. Submucosal myoma, excision: Fragments of benign smooth muscle consistent with submucosal leiomyoma, and benign proliferative endometrium; no atypia or carcinoma. B. Endometrium, curettage: Fragments of benign proliferative endometrium and fragments of benign squamous and endocervical glandular epithelium; no atypia or carcinoma Last co testing done in 12/03 was negative Pelvic ultrasound done on 09/04 compared to previous ultrasound done in 01/03 showed the following: Uterus: The uterus is retroverted and measures 8.0 x 3.9 x 5.2 cm. The double wall endometrial thickness is 0.4 mm. Nabothian cysts are present in the cervix. The uterus is smooth in contour and has normal myometrial echogenicity. Two uterine fibroids are seen, one measuring 1.9 cm at the fundus (previously 2.1 cm) with another measuring 2.8 cm anteriorly (previously 4.2 cm). A previously noted fibroid measuring 2.4 cm is not identified. Adnexa: Neither ovary could be seen. No free fluid was present in the cul-de-sac. , The patient was counseled about different options of treatment and decided to proceed with minimally invasive hysterectomy she was then referred to [facility] , appointment scheduled on 06/01/2022, the patient is in the process of going through her preoperative testing prior to scheduling Hyst minimally invasive hysterectomy PFSH Medical History Depression Hx of sleep apnea Extreme obesity Ectopic Hypertension Surgical History Hx of myringotomy Hx of oral surgery Hx of adenoidectomy History of hernia surgery Family History Mother History of breast cancer Diabetes Obesity Lung cancer Son No problems noted. Daughter No problems noted. Social History Alcohol intake: current Alcohol intake frequency: holidays/special occasions only Alcohol type: beer and wine Patient Tobacco Use Status: Current everyday Tobacco user Tobacco use type: Cigarette Cigarettes Per Day: 4 Years Smoked: 40, recently began decreasing intake Female Reproductive History Menstrual Age of Menarche: 11 Review of Systems Const All systems reviewed & are unremarkable except as noted in HPI and below Reports as per HPI and Reports no additional complaints GI Reports no additional complaints Reports no additional complaints Telehealth Telehealth Telehealth Platform: Telephone Location of provider rendering services: practice address Location of patient: address on file Patient Identification confirmed using: Name, : Yes Telehealth method: voice only Patient verbally consented to treatment: Yes Patient verbally consented to billing insurance company: Yes Patient informed of any privacy concerns related to visit: Yes Assessment & Plan Assessment & Plan (1) PMB (postmenopausal bleeding): Comment: Myomas Proliferative endometrium Code(s): N95.0 - Postmenopausal bleeding Category: Medical Plan: Discussed with the patient the results the ultrasound showing myomas smaller inside, recommended the patient to complete her preoperative testing and follow- up with [facility] to proceed with a minimally invasive hysterectomy regarding her proliferative endometrium to decrease the risk of future endometrial hyperplasia or malignancy. All questions answered, the patient verbalized understanding and agreed with the plan. I spent a total of 20 minutes reviewing the chart, talking to the patient via phone and documenting in the medical record. Coding Level of Care Code Tele Est Pt Level 1 (00941) Diagnoses PMB (postmenopausal bleeding) N95.0
== END 2023-10-15 15:19 | disposition home or self-care (01) ==
LOC: HO.HWS 14:55
PROVIDERS: PCP Internal Medicine; Visit Provider Obstetrics & Gynecology
DX: N95.0 Postmenopausal bleeding (principal)
CPT/HCPCS: 99211

== ENCOUNTER → 2023-10-15 14:55 | Outpatient (BNVA) | payer OTHER, SELFPAY | PROVIDERS: PCP Internal Medicine; Visit Provider Obstetrics & Gynecology ==

== ENCOUNTER 2023-10-25 13:15 | Outpatient (REF) | payer OTHER, SELFPAY ==
--- NOTE | ~2023-10-25 | CT_ITS ---
EXAMINATION: CT CHEST WITHOUT CONTRAST CLINICAL INFORMATION: Nicotine dependence, unspecified, uncomplicated. No further history provided. COMPARISON: None available. TECHNIQUE: Multidetector volumetric CT imaging of the chest was done. Axial MIP volume rendering provided. Sagittal and coronal reformatted images were obtained. This CT examination was performed using dose optimization techniques as appropriate, variously including the following: *Automated exposure control *Adjustment of mA and/or kV according to patient size (this includes techniques or standardized protocols for targeted exams where dose is matched to indication/reason for exam; i.e. extremities or head) *Use of iterative reconstruction technique DLP: 380 mGy-cm Please note, due to [employer] technical systems and internal issues, this examination was not available for dictation until 11/28/2023. This study is significantly limited due to patient morbid obesity and beam starvation artifact. 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 LUNGS: -There is mild centrilobular emphysema present. -There are no right lung nodules evident. -There are no left lung nodules evident. -There are no consolidations or abnormal opacities. -The trachea and major bronchi are normal in appearance. Minimal cylindrical bronchiectasis present in the lower lobes. No bronchial wall thickening or endobronchial filling defects. MEDIASTINUM: -Partially imaged thyroid demonstrates enlargement with multiple nodules, incompletely imaged. -There is a 9 mm prevascular lymph node present, likely reactive. -No pathologic lymphadenopathy is evident. -Heart size is normal. No pericardial effusion. -Aorta is normal in course and caliber without aneurysm. -Two-vessel branching pattern of the great vessels. -Main pulmonary artery is borderline enlarged at 3.7 cm. -Esophagus appears normal. -Probable small type I hiatus hernia. CORONARY ARTERY CALCIFICATION: None visualized on this study. PLEURA: There is no pleural effusion. No pleural mass or thickening. AXILLA/CHEST WALL: -There is a nonspecific left low axillary lymph node measuring 1.0 cm in short axis. Reactive etiology is favored. -No definite pathologic lymphadenopathy evident. UPPER ABDOMEN: -Limited due to beam starvation artifact. There is fatty infiltration of the liver with hepatomegaly, incompletely imaged. OSSEOUS STRUCTURES: -[id number] degenerative changes of the imaged spine with large ventral flowing disc osteophytes, possibly on the basis of DISH, although ankylosing spondylitis can have a similar appearance. -Degenerative changes of the sternoclavicular joints. -No suspicious lytic or blastic bone lesion. CT/CT chest wo IV con IMPRESSION: 1. Mild centrilobular emphysema present. Lungs otherwise clear. 2. No suspicious pulmonary nodules are evident. 3. Borderline enlarged main pulmonary artery at 3.7 cm. 4. Fatty infiltration of the liver. 5. Borderline enlarged left low axillary lymph node is presumably reactive in nature. No additional abnormal lymphadenopathy. 6. Skeletal findings suggesting possible underlying DISH versus ankylosing spondylitis. Fleischner guidelines were followed.
== END 2023-10-25 13:16 | disposition home or self-care (01) ==
LOC: HO.CT 13:15
PROVIDERS: PCP Internal Medicine; Visit Provider Nurse Practitioner Family
DX: F17.200 Nicotine dependence, unspecified, uncomplicated (principal)
CPT/HCPCS: 71250

== ENCOUNTER → 2023-10-25 13:16 | Outpatient (BNV) | payer OTHER, SELFPAY | PROVIDERS: PCP Internal Medicine; Visit Provider Radiology Diagnostic Radiology | DX: R06.09 Other forms of dyspnea (principal); F17.200 Nicotine dependence, unspecified, uncomplicated | CPT/HCPCS: 71250 ==

== ENCOUNTER → 2023-11-14 07:50 | Outpatient (REF) | payer OTHER, SELFPAY ==
--- NOTE | 2023-11-14 08:07 | CA_ITS ---
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 The calculated ejection fraction is 63% by biplane method. - No obvious valvular pathology seen on this study. Findings Left Ventricle Normal left ventricular cavity size. There is mildly increased left ventricular wall thickness. The left ventricular systolic function is normal. The calculated ejection fraction is 63% by biplane method. There is no evidence of regional wall motion abnormalities. Diastolic function is normal for age. Right Ventricle Normal right ventricular cavity size and systolic function. Atria Both atria are normal in size. Aortic Valve The aortic valve was not well visualized. There is no aortic valve stenosis. There is no aortic valve regurgitation. Mitral Valve The mitral valve appears normal. There is no mitral valve regurgitation. There is no mitral valve stenosis. Pulmonic Valve The pulmonic valve is likely normal. Tricuspid Valve There is no tricuspid valve regurgitation. Tricuspid regurgitation envelope is inadequate for calculation of right ventricular systolic pressure. Great Vessels The asc aorta is normal in size. Venous The inferior vena cava is normal in size and collapses less than 50% with inspiration. Pericardium/Pleural There is no evidence of pericardial effusion. Prior Study Comparison No prior study available for comparison. Recommendations, Care & Conclusions No obvious valvular pathology seen on this study. Measurements 2D Linear Measurements IVSd: 1.29 0.6-0.9/0.6-1.0 cm LVIDd: 3.75 3.9-5.3/4.2-5.9 cm LVIDd Index: 1.52 2.4-3.2/2.2-3.1 cm/m2 LVIDs: 2.39 2.0-3.6 cm LVPWd: 1.30 0.7-1.1 cm Ao Root: 2.70 2.1-3.5 cm LA Diam: 3.30 2.7-3.8/3.0-4.0 cm LAIDs Index: 1.34 1.5-2.3 cm/m2 LV Mass: 210.19 67-162/88-224 g LV Mass Index: 85.10 43-95/49-115 g/m2 LVOT Diam: 2.10 3.0+(-)1.3 cm 2D Systolic Function EF 4C: 67.10 >55% EF 2C: 60.40 >55% EF BiP: 62.90 >55% Mitral Valve MV Pk E: 0.68 MV PK A: 0.98 MV Decel Time: 133.00 E/A: 0.70 E'Lateral: 9.36 E'Medial: 8.16 E/E' Med: 8.30 E/E' Lat: 7.20 PHT: 39.00 MVA PHT: 5.64 Decel Rush: 5.09 Aortic Valve AoV Pk Leonidas: 1.54 AoV Mn Leonidas: 0.96 AoV VTI: 0.30 AoV Pk Grad: 9.00 Aov Mn Grad: 4.00 HUMPHREY Cont.VTI: 2.82 LVOT LVOT Pk Leonidas: 1.11 LVOT Mn Leonidas: 0.77 LVOT VTI: 0.24 LVOT Pk Grad: 5.00 LVOT Mn Grad: 3.00 LVOT Diam: 2.10 LVOT Area: 3.46 Diastolic Function MV Pk E: 0.68 MV Pk A: 0.98 E/A: 0.70 E'Medial: 8.16 E/E' Med: 8.30 E' Laterial: 9.36 E/E' Lat: 7.20 Right Ventricle TAPSE (mm): 27.50 TVS' Leonidas: 13.10 Tricuspid Valve TR Pk Leonidas: 2.53 TR Pk Grad: 26.00 Great Vessels Aorta Ao Root-2D: 2.70 2.0-3.7 cm Ao Asc: 2.80 2.1-3.4 cm Pulmonary Valve PV Pk Leonidas: 1.08 Peak PV Grad: 5.00 Updated in Other Vendor System with Status of Final Mateo Hair MD electronically signed on 11/16/2023 2:05:58 PM with status of Final
== END ==
LOC: HO.CARD 07:50
PROVIDERS: PCP Internal Medicine; Visit Provider Internal Medicine
DX: R06.02 Shortness of breath (principal)
CPT/HCPCS: 93306

== ENCOUNTER → 2023-11-14 08:07 | Outpatient (BNV) | payer OTHER, SELFPAY | PROVIDERS: PCP Internal Medicine; Visit Provider Internal Medicine | DX: R06.02 Shortness of breath (principal) | CPT/HCPCS: 93306 ==

== ENCOUNTER 2023-12-11 12:54 | Outpatient (AMB) | payer OTHER, SELFPAY ==
--- NOTE | 2023-12-11 13:06 | MHC.OFFVIS ---
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 An echocardiogram and CTA of the coronary arteries was ordered. The CTA has not been completed as of yet. Today she reports that she does have shortness of breath with physical activity. She blames this on her smoking and obesity. She does follow with pulmonology. She says she is also tells me she will be getting a CPAP mask to use at night. She sleeps in a recliner. She reports shortness of breath and laying down flat position. No PND, edema. No chest discomfort at rest or with activity. No heart palpitations, lightheadedness, presyncope, syncope, falls. She takes her meds as directed. She plans to start going to the gym and working on weight loss. She tells me she has gained 100 lb in the last 4 years. She is currently not working and is going to focus on her health. She will be needing a hysterectomy but has no dates planned yet. [facility] Medical History Depression Hx of sleep apnea Extreme obesity Ectopic Hypertension Surgical History Hx of myringotomy Hx of oral surgery Hx of adenoidectomy History of hernia surgery Family History Mother History of breast cancer Diabetes Obesity Lung cancer Son No problems noted. Daughter No problems noted. Social History Alcohol intake: current Alcohol intake frequency: holidays/special occasions only Alcohol type: beer and wine Patient Tobacco Use Status: Current everyday Tobacco user Tobacco use type: Cigarette Cigarettes Per Day: 4 Years Smoked: 40, recently began decreasing intake Female Reproductive History Menstrual Age of Menarche: 11 Review of Systems Const All systems reviewed & are unremarkable except as noted in HPI and below ENT Denies dizziness Card Denies chest pain, Denies chest pain at rest, Denies chest pain with activity, Denies rapid heart rate, Denies pedal edema, Denies edema, Denies leg edema, Denies lightheadedness, Denies palpitations, Reports dyspnea, Reports dyspnea on exertion and Reports orthopnea Resp Denies cough, Reports dyspnea and Reports dyspnea on exertion GI Denies hematochezia and Denies change in stool character Musc Reports abnormal gait, Denies limited range of motion, Denies muscle cramps, Denies muscle weakness, Denies numbness, Denies radiating pain into limb, Denies stiffness and Denies tingling Neuro Reports abnormal gait, Denies dizziness, Denies numbness and Denies tingling Endo Denies palpitations Physical Exam Vital Signs: Last Vital Signs Pulse 85 12/11/23 13:07 BP 152/70 H 12/11/23 13:07 BMI result Body Mass Index 68.4 Const Other: morbidly obese General: cooperative, no acute distress, alert and awake Orientation/consciousness: patient oriented x3 Resp Effort & Inspection: normal respiratory effort Auscultation: clear to auscultation bilaterally, no rales, no rhonchi and no wheezes Cardio Jugular venous distension: no JVD Rate: regular rate Rhythm: regular rhythm Heart sounds: S1 normal heart sound present, S2 normal heart sound present, no murmurs and no rubs Neuro General: patient oriented x3 Extrem General: Yes normal to inspection and No no pedal edema Psych Appearance: grossly normal Mental Status: mental status grossly normal Speech and movement: Normal speech and movement present Assessment & Plan Assessment & Plan (1) Dyspnea on minimal exertion: Code(s): R06.09 - Other forms of dyspnea Category: Medical Plan: Shortness of breath with activity. She does follow with pulmonology. She has a history of chronic smoking, for the last 30 years. She is actively working on smoking reduction. She is morbidly obese which contributes to her breathing difficulties. She has no known history of CAD. She does have cardiac risk factors of hypertension, smoking, morbid obesity. An echocardiogram was done on 11/14/2023 showing EF 63%, normal valves, mild LVH, no regional wall motion abnormalities, diastolic function is normal. A CTA of the coronary arteries had been ordered however not completed yet by patient. She missed the appointment due to in family. Will give her the number for [facility] to have her reschedule this test. She denies having anginal sounding symptoms. A chest CT was done on 10/25/2023 which showed no coronary calcifications which is reassuring. Plan to call her with CTA results once available. If normal then cardiology follow-up can be as needed. If she does have CAD then will schedule a follow-up visit for monitoring. She is agreeable to this plan. (2) HTN (hypertension) with goal to be determined: Code(s): I10 - Essential (primary) hypertension Category: Medical Plan: Mild elevation today which she relates to walking into the appointment. She reports compliance with her hydrochlorothiazide. No med changes made. (3) Morbid exogenous obesity: Code(s): E66.01 - Morbid (severe) obesity due to excess calories Category: Medical Plan: As above. Tells me that she plans to start going to the gym in the near future. (4) Preoperative cardiovascular examination: Code(s): Z01.810 - Encounter for preprocedural cardiovascular examination Category: Medical Plan: Preop for hysterectomy. No date yet. Her echocardiogram shows no significant abnormalities. A CTA of the coronary arteries is still pending. Will update this note once results are available. Plan Time spent on chart review, documentation, interview and assessment. Orders: Orders Basic Metabolic Panel Today R06.09 - Other forms of dyspnea Coding Level of Care Code Est Pt Level 3 (39542) Diagnoses Dyspnea on minimal exertion R06.09 HTN (hypertension) with goal to be determined I10 Morbid exogenous obesity E66.01 Preoperative cardiovascular examination Z01.810 Time Spent (min) 24
[2023-12-11 13:07] VITALS: BP 152/70; PULSE 85; BMI 68.4
== END 2023-12-11 13:42 | disposition home or self-care (01) ==
PROVIDERS: PCP Internal Medicine; Visit Provider Nurse Practitioner Family
DX: R06.09 Other forms of dyspnea (principal); I10 Essential (primary) hypertension; E66.01 Morbid (severe) obesity due to excess calories; Z01.810 Encounter for preprocedural cardiovascular examination
CPT/HCPCS: 99213

== ENCOUNTER → 2023-12-11 12:54 | Outpatient (BNVA) | payer OTHER, SELFPAY | PROVIDERS: PCP Internal Medicine; Visit Provider Nurse Practitioner Family | DX: Z01.810 Encounter for preprocedural cardiovascular examination (principal); R06.09 Other forms of dyspnea; I10 Essential (primary) hypertension; E66.01 Morbid (severe) obesity due to excess calories; Z68.44 Body mass index [BMI] 60.0-69.9, adult | CPT/HCPCS: 99212 ==

== ENCOUNTER → 2023-12-18 10:40 | Outpatient (REF) | payer OTHER, SELFPAY | LOC: HO.SL 10:40 | PROVIDERS: PCP Internal Medicine; Visit Provider Nurse Practitioner Family | DX: R40.0 Somnolence (principal); R06.83 Snoring | CPT/HCPCS: 95806 ==

== ENCOUNTER → 2023-12-18 11:02 | Outpatient (BNV) | payer OTHER, SELFPAY | PROVIDERS: PCP Internal Medicine; Visit Provider Internal Medicine | DX: R06.83 Snoring (principal); R40.0 Somnolence | CPT/HCPCS: 95806 ==

== ENCOUNTER 2023-12-31 13:13 | Outpatient (AMB) | payer OTHER, SELFPAY ==
--- NOTE | 2023-12-31 13:14 | MHC.OFFVIS ---
Vital Signs 12/31/23 13:17 Height 5 ft 2 in Weight 367 lb 1.114 oz BMI 67.1 BP 126/70 Blood Pressure Location Rt radial Position Sitting Pulse 84 Pulse Source Pulse Oximeter Pulse Oximetry (%) 97 Oxygen Delivery Method Room Air Intake Visit Reasons: CT /Sleep Study- follow up Allergies No Known Allergies Allergy (Verified 12/31/23 13:20) HPI HPI CT /Sleep Study- follow up: Details: Freda is pleasant 53 year old female, current minimal smoker with 40 pack year history, with underlying HTN, severe KIARRA and morbid obesity BMI 67. At baseline, she reports dyspnea on minimal exertion, productive cough, and wheezing that has been more noticeable the last few weeks which she attributes to allergies. She had used OTC medications without effect. She now reports productive cough with brown sputum. Of note, she was started on wellbutrin for smoking cessation by PCP and is undergoing cardiac evaluation. Today she presents to review chest CT, PFT and home sleep study. [facility] Medical History Depression Hx of sleep apnea Extreme obesity Ectopic Hypertension Surgical History Hx of myringotomy Hx of oral surgery Hx of adenoidectomy History of hernia surgery Family History Mother History of breast cancer Diabetes Obesity Lung cancer Son No problems noted. Daughter No problems noted. Social History Alcohol intake: current Alcohol intake frequency: holidays/special occasions only Alcohol type: beer and wine Patient Tobacco Use Status: Current everyday Tobacco user Tobacco use type: Cigarette Cigarettes Per Day: 4 Years Smoked: 40, recently began decreasing intake Female Reproductive History Menstrual Age of Menarche: 11 Review of Systems Const Denies chills, Denies excessive sweating, Denies fever(s), Denies headache(s) and Denies night sweats Eyes Denies dry eyes, Denies irritation and Denies itchy eyes ENT Reports Normal hearing present and Denies headache(s) Card Denies chest pain, Denies chest pain at rest, Denies chest pain with activity, Denies claudication, Denies leg edema, Reports dyspnea on exertion and Denies orthopnea Resp Denies chest congestion, Reports cough, Denies hemoptysis, Denies excessive phlegm production, Denies pain on inspiration, Denies pain with cough, Reports dyspnea on exertion, Denies stridor and Reports wheezing Musc Denies myalgias Neuro Reports Normal hearing present and Denies headache(s) Endo Denies excessive sweating Wild/Lymph Denies lymphadenopathy Aller/Immun Denies itchy eyes, Denies seasonal rhinorrhea and Reports wheezing Physical Exam Vital Signs: Last Vital Signs Pulse 84 12/31/23 13:17 BP 126/70 12/31/23 13:17 Pulse Ox 97 12/31/23 13:17 Oxygen Delivery Method Room Air 12/31/23 13:17 BMI result Body Mass Index 67.1 Const General: cooperative, healthy appearing, comfortable, no acute distress, well developed and alert Nutritional Appearance: obese morbidly obese Orientation/consciousness: patient oriented x3 Limitations: no limitations HEENT Other: right hearing aid present Head: Yes normal to inspection, Yes normocephalic and Yes atraumatic Ears: hearing grossly normal bilaterally and external ears normal Eyes General: appearance normal, both eyes and all related structures Eyelids: Yes eyelids normal Sclerae: sclerae normal EOM: EOMs intact bilaterally Neck Neck: Yes normal visual inspection and Yes no lymphadenopathy Lymphatic: no lymphadenopathy noted Chest Chest palpation & inspection: normal inspection of the chest Resp Effort & Inspection: normal respiratory effort, able to speak in complete sentences, no audible wheezes, no cough, no stridor, not tachypneic, no tripod positioning and no use of accessory muscles Auscultation: diminished lung sounds Cardio Jugular venous distension: no JVD Rate: regular rate Rhythm: regular rhythm Skin Other: warm, dry General skin exam: no rashes or lesions noted Neuro General: patient oriented x3 Cranial nerves: Yes Normal hearing present Cognition (Neuro): normal cognition Gait exam (Neuro): Normal gait present Extrem General: Yes normal to inspection, Yes capillary refill normal, Yes no clubbing, cyanosis or edema and Yes no pedal edema Psych Appearance: grossly normal and well kempt Speech and movement: Normal speech and movement present and Clear speech present Affect: normal affect Attitude: cooperative Thought process: Normal thought process present Thought content: Normal thought content present Insight: Good insight present (Psych) Judgement: Good judgement present (Psych) Results Reviewed Results Reviewed: [facility] [address] [place] [address] CT Scan Report Signed Patient: Freda Avendano MR#: [id number] : 1970 Acct:[id number] Age/Sex: 53 / F ADM Date: 10/25/23 Loc: HO.CT Attending Dr: Ana Gerard NP Ordering Physician: Ana Gerard NP Date of Service: 10/25/23 Procedure(s): CT chest wo IV con Accession Number(s): [id number] cc: Milton Quinn MD; Ana Gerard NP~ EXAMINATION: CT CHEST WITHOUT CONTRAST CLINICAL INFORMATION: Nicotine dependence, unspecified, uncomplicated. No further history provided. COMPARISON: None available. TECHNIQUE: Multidetector volumetric CT imaging of the chest was done. Axial MIP volume rendering provided. Sagittal and coronal reformatted images were obtained. This CT examination was performed using dose optimization techniques as appropriate, variously including the following: *Automated exposure control *Adjustment of mA and/or kV according to patient size (this includes techniques or standardized protocols for targeted exams where dose is matched to indication/reason for exam; i.e. extremities or head) *Use of iterative reconstruction technique DLP: 380 mGy-cm Please note, due to [employer] technical systems and internal issues, this examination was not available for dictation until 11/28/2023. This study is significantly limited due to patient morbid obesity and beam starvation artifact. FINDINGS: PATTERN FITTER: No findings, increased BMI noted. LUNGS: -There is mild centrilobular emphysema present. -There are no right lung nodules evident. -There are no left lung nodules evident. -There are no consolidations or abnormal opacities. -The trachea and major bronchi are normal in appearance. Minimal cylindrical bronchiectasis present in the lower lobes. No bronchial wall thickening or endobronchial filling defects. MEDIASTINUM: -Partially imaged thyroid demonstrates enlargement with multiple nodules, incompletely imaged. -There is a 9 mm prevascular lymph node present, likely reactive. -No pathologic lymphadenopathy is evident. -Heart size is normal. No pericardial effusion. -Aorta is normal in course and caliber without aneurysm. -Two-vessel branching pattern of the great vessels. -Main pulmonary artery is borderline enlarged at 3.7 cm. -Esophagus appears normal. -Probable small type I hiatus hernia. CORONARY ARTERY CALCIFICATION: None visualized on this study. PLEURA: There is no pleural effusion. No pleural mass or thickening. AXILLA/CHEST WALL: -There is a nonspecific left low axillary lymph node measuring 1.0 cm in short axis. Reactive etiology is favored. -No definite pathologic lymphadenopathy evident. UPPER ABDOMEN: -Limited due to beam starvation artifact. There is fatty infiltration of the liver with hepatomegaly, incompletely imaged. OSSEOUS STRUCTURES: -[id number] degenerative changes of the imaged spine with large ventral flowing disc osteophytes, possibly on the basis of DISH, although ankylosing spondylitis can have a similar appearance. -Degenerative changes of the sternoclavicular joints. -No suspicious lytic or blastic bone lesion. CT/CT chest wo IV con IMPRESSION: 1. Mild centrilobular emphysema present. Lungs otherwise clear. 2. No suspicious pulmonary nodules are evident. 3. Borderline enlarged main pulmonary artery at 3.7 cm. 4. Fatty infiltration of the liver. 5. Borderline enlarged left low axillary lymph node is presumably reactive in nature. No additional abnormal lymphadenopathy. 6. Skeletal findings suggesting possible underlying DISH versus ankylosing spondylitis. Fleischner guidelines were followed. Dictated By: Shawn Orlando MD Signed By: <Electronically signed by Shawn Orlando MD in OV> 11/28/23 0940 DD/ 1340 TD/TT: Scientific Associate: Assessment & Plan Assessment & Plan (1) Dyspnea on minimal exertion: Code(s): R06.09 - Other forms of dyspnea Category: Medical (2) Environmental allergies: Code(s): Z91.09 - Other allergy status, other than to drugs and biological substances Category: Medical (3) Smoker: Code(s): F17.200 - Nicotine dependence, unspecified, uncomplicated Category: Social Hx (4) Severe obstructive sleep apnea: Code(s): G47.33 - Obstructive sleep apnea (adult) (pediatric) Category: Medical (5) Daytime somnolence: Code(s): R40.0 - Somnolence Category: Medical (6) Encounter for preoperative pulmonary examination: Code(s): Z01.811 - Encounter for preprocedural respiratory examination Category: Medical Plan Reviewed PFT which revealed moderate restrictive ventilatory defect with no bronchodilator response. Decreased expiratory reserve volume suggests extrathoracic restriction likely secondary to abdominal obesity.,BMI 67, DLCO normal. Given symptoms will trial Breo. Discussed importance of good oral hygiene to prevent thrush. Reviewed chest CT which revealed no concerning nodules, emphysema and borderline enlarged main pulmonary artery at 3.7 cm. Recent echo inconclusive regarding RVSP. She is currently undergoing cardiac evaluation. She reports bronchitic symptoms, will treat with a zpak. She is aware if symptoms do not improve to call office. Recent home sleep study negative, however patient previously diagnosed with severe KIARRA and has had significant weight gain since last in lab PSG and KIARRA symptoms persist. Will send for in lab PSG. All questions were answered and patient is in agreement of plan. Will follow up in 6 weeks or sooner if needed. Medications: New fluticasone furoate-vilanterol 100-25 mcg/dose (Breo Ellipta) 1 inh inhalation DAILY 60 ea 3RF azithromycin For 250 mg dose pack: take 500 mg today (day 1), then 250 mg for 4 days (days 2-5) PO 6 tabs 0RF Coding Level of Care Code Est Pt Level 4 (67969) Diagnoses Dyspnea on minimal exertion R06.09 Environmental allergies Z91.09 Smoker F17.200 Severe obstructive sleep apnea G47.33 Daytime somnolence R40.0 Encounter for preoperative pulmonary examination Z01.811
[2023-12-31 13:17] VITALS: BP 126/70; PULSE 84; O2SAT 97; BMI 67.1
== END 2023-12-31 13:51 | disposition home or self-care (01) ==
PROVIDERS: PCP Internal Medicine; Visit Provider Nurse Practitioner Family
DX: R06.09 Other forms of dyspnea (principal); Z91.09 Other allergy status, other than to drugs and biological substances; F17.200 Nicotine dependence, unspecified, uncomplicated; G47.33 Obstructive sleep apnea (adult) (pediatric); R40.0 Somnolence; Z01.811 Encounter for preprocedural respiratory examination
CPT/HCPCS: 99214

== ENCOUNTER → 2023-12-31 13:13 | Outpatient (BNVA) | payer OTHER, SELFPAY | PROVIDERS: PCP Internal Medicine; Visit Provider Nurse Practitioner Family | DX: Z01.811 Encounter for preprocedural respiratory examination (principal); G47.33 Obstructive sleep apnea (adult) (pediatric); I10 Essential (primary) hypertension; E66.01 Morbid (severe) obesity due to excess calories; R06.09 Other forms of dyspnea; R40.0 Somnolence; F17.210 Nicotine dependence, cigarettes, uncomplicated; Z68.44 Body mass index [BMI] 60.0-69.9, adult; Z91.09 Other allergy status, other than to drugs and biological substances | CPT/HCPCS: 99212 ==

== ENCOUNTER 2024-01-07 09:54 | Outpatient (REF) | payer OTHER, SELFPAY ==
--- NOTE | 2024-01-07 14:34 | MHC.AU.HA3 ---
Hearing Instrument Follow-Up- Binaural Date of Visit: 01/07/24 Right Ear: Make, Model, Color, Serial Number: Manuel Mcdowell Q50-SP SN: [id number] Color: [place] brown Father's old hearing aids reprogrammed for Freda - Freda's original hearing aids lost Clinical Account Specialist Repair Warranty: Clinical Account Specialist Loss and Damage Warranty: [facility] Service Plan: Battery Size: 13 Well Head Pumper/Slim Tube: Size #1 slim tube Earmold/Dome/CShell/SlimTip:Medium open dome Type of Wax Guard: Dispensed By: [facility] Date of Fittin09/23/2014 - Reprogrammed for Freda Left Ear: Make, Model, Color, Serial Number: Manuel Mcdowell Q50-SP SN: [id number] Color: [place] brown Father's old hearing aids reprogrammed for Freda - Freda's original hearing aids lost Clinical Account Specialist Repair Warranty: Clinical Account Specialist Loss and Damage Warranty: [facility] Service Plan: Battery Size: 13 Well Head Pumper/Slim Tube: Size #1 slim tube Earmold/Dome/CShell/SlimTip: Medium open dome Type of Wax Guard: Dispensed By: [facility] Date of Fittin09/23/2014 - Reprogrammed for Freda Follow-Up Summary: Both aids dropped off . Found slim tubes clogged. Cleaned aids, replaced slim tubes, replaced domes. Listening check positive. Recommendations: Recommendations: Hearing instrument follow-up or maintenance as needed. Diagnosis Code(s): Primary Diagnosis: H90.3 Bilateral Sensorineural Hearing Loss Signature: Provider: Nova Delgado, [facility]
== END 2024-01-07 09:55 | disposition home or self-care (01) ==
LOC: HO.HAP 09:54
PROVIDERS: Visit Provider Internal Medicine
DX: Z13.89 Encounter for screening for other disorder (principal)

== ENCOUNTER 2024-01-09 10:51 | Outpatient (REF) | payer OTHER, SELFPAY | END 2024-01-09 10:52 | disposition home or self-care (01) | LOC: HO.HAP 10:51 | PROVIDERS: Visit Provider Internal Medicine | DX: Z46.1 Encounter for fitting and adjustment of hearing aid (principal); H90.6 Mixed conductive and sensorineural hearing loss, bilateral | CPT/HCPCS: 92593; 99499 ==

== ENCOUNTER → 2024-02-11 20:30 | Outpatient (REF) | payer OTHER, SELFPAY | LOC: HO.SL 20:30 | PROVIDERS: PCP Internal Medicine; Visit Provider Nurse Practitioner Family | DX: E66.01 Morbid (severe) obesity due to excess calories (principal); R40.0 Somnolence; R06.81 Apnea, not elsewhere classified | CPT/HCPCS: 95810 ==

== ENCOUNTER → 2024-02-11 21:30 | Outpatient (BNV) | payer OTHER, SELFPAY | PROVIDERS: PCP Internal Medicine; Visit Provider Internal Medicine | DX: G47.33 Obstructive sleep apnea (adult) (pediatric) (principal) | CPT/HCPCS: 95810 ==

== ENCOUNTER 2024-03-10 14:59 | Outpatient (AMB) | payer OTHER, SELFPAY ==
--- NOTE | 2024-03-10 15:04 | MHC.OFFVIS ---
Intake Visit Reasons: dyspnea/ sleep study follow Allergies No Known Allergies Allergy (Verified 12/31/23 13:20) HPI HPI dyspnea/ sleep study follow: Details: Freda is pleasant 53 year old female, current minimal smoker with 40 pack year history, with underlying HTN, severe KIARRA and morbid obesity BMI 67. At the last visit she was started on Breo for dyspnea on minimal exertion and wheezing. Unfortunately she has been using p.r.n. so difficult to assess effectiveness. She was also treated for bronchitic symptoms which have resolved with azithromycin. Today's visit was conducted via telephone to review in lab sleep study results. [facility] Medical History Depression Hx of sleep apnea Extreme obesity Ectopic Hypertension Surgical History Hx of myringotomy Hx of oral surgery Hx of adenoidectomy History of hernia surgery Family History Mother History of breast cancer Diabetes Obesity Lung cancer Son No problems noted. Daughter No problems noted. Social History Alcohol intake: current Alcohol intake frequency: holidays/special occasions only Alcohol type: beer and wine Patient Tobacco Use Status: Current everyday Tobacco user Tobacco use type: Cigarette Cigarettes Per Day: 4 Years Smoked: 40, recently began decreasing intake Female Reproductive History Menstrual Age of Menarche: 11 Review of Systems Const All systems reviewed & are unremarkable except as noted in HPI and below Physical Exam Const General: cooperative and no acute distress Orientation/consciousness: patient oriented x3 Resp Effort & Inspection: normal respiratory effort, able to speak in complete sentences and no audible wheezes Neuro General: patient oriented x3 Psych Mental Status: mental status grossly normal Speech and movement: Clear speech present Attitude: cooperative Thought process: Normal thought process present Thought content: Normal thought content present Insight: Good insight present (Psych) Judgement: Good judgement present (Psych) Telehealth Telehealth Telehealth Platform: Telephone Location of provider rendering services: practice address Location of patient: address on file Patient Identification confirmed using: Name, : Yes Telehealth method: voice only Patient verbally consented to treatment: Yes Patient verbally consented to billing insurance company: Yes Patient informed of any privacy concerns related to visit: Yes Assessment & Plan Assessment & Plan (1) Dyspnea on minimal exertion: Code(s): R06.09 - Other forms of dyspnea Category: Medical (2) Environmental allergies: Code(s): Z91.09 - Other allergy status, other than to drugs and biological substances Category: Medical (3) Smoker: Code(s): F17.200 - Nicotine dependence, unspecified, uncomplicated Category: Social Hx (4) Severe obstructive sleep apnea: Code(s): G47.33 - Obstructive sleep apnea (adult) (pediatric) Category: Medical (5) Daytime somnolence: Code(s): R40.0 - Somnolence Category: Medical Plan Encouraged to use Breo 1 inhalation daily. Discussed importance of good oral hygiene to prevent thrush. Reviewed in lab sleep study which revealed severe sleep apnea, prior home sleep study negative. Recommendations were made for in lab titration study, will enter this order. Since patient is quite symptomatic, will start CPAP therapy. Will send in prescription for APAP mode and pressure settings of 6-20 cm with close monitoring for compliance and benefits. Sleep hygiene education reviewed. She is aware if there are any issues with the mask or CPAP machine, she will call the office. All questions were answered and patient is in agreement of plan. Will follow up in 8 weeks or sooner if needed. Orders: Orders RT PSG in-lab sleep titration Today G47.33 - Obstructive sleep apnea (adult) (pediatric) Scribe Plan - Not visible on output: I spent 12 minutes speaking with the patient on the phone plus an additional 10 minutes reviewing and updating records for a total of 22 minutes Coding Level of Care Code Tele Est Pt Level 4 (02348) Diagnoses Dyspnea on minimal exertion R06.09 Environmental allergies Z91.09 Smoker F17.200 Severe obstructive sleep apnea G47.33 Daytime somnolence R40.0
== END 2024-03-10 15:00 | disposition home or self-care (01) ==
LOC: HO.HPS 14:59
PROVIDERS: PCP Internal Medicine; Visit Provider Nurse Practitioner Family
DX: R06.09 Other forms of dyspnea (principal); Z91.09 Other allergy status, other than to drugs and biological substances; F17.200 Nicotine dependence, unspecified, uncomplicated; G47.33 Obstructive sleep apnea (adult) (pediatric); R40.0 Somnolence
CPT/HCPCS: 99214

== ENCOUNTER → 2024-03-10 14:59 | Outpatient (BNVA) | payer OTHER, SELFPAY | PROVIDERS: PCP Internal Medicine; Visit Provider Nurse Practitioner Family ==

== ENCOUNTER → 2024-04-30 20:30 | Outpatient (REF) | payer OTHER, SELFPAY | LOC: HO.SL 20:30 | PROVIDERS: PCP Internal Medicine; Visit Provider Nurse Practitioner Family | DX: G47.33 Obstructive sleep apnea (adult) (pediatric) (principal) | CPT/HCPCS: 95811 ==

== ENCOUNTER → 2024-04-30 20:35 | Outpatient (BNV) | payer OTHER, SELFPAY | PROVIDERS: PCP Internal Medicine; Visit Provider Internal Medicine | DX: G47.33 Obstructive sleep apnea (adult) (pediatric) (principal) | CPT/HCPCS: 95811 ==

== ENCOUNTER 2024-06-06 11:16 | Outpatient (REF) | payer OTHER, SELFPAY ==
--- NOTE | 2024-06-06 15:44 | MHC.AU.HA3 ---
Hearing Instrument Follow-Up- Binaural Date of Visit: 06/06/24 Right Ear: Make, Model, Color, Serial Number: Manuel Mcdowell Q50-SP SN: [id number] Color: [place] brown Father's old hearing aids reprogrammed for Freda - Freda's original hearing aids lost Test Inspection Engineer Repair Warranty: Test Inspection Engineer Loss and Damage Warranty: [facility] Service Plan: Battery Size: 13 Special Agent Fbi/Slim Tube: Size #1 slim tube Earmold/Dome/CShell/SlimTip:Medium closed dome Type of Wax Guard: Dispensed By: [facility] Date of Fittin09/23/2014 - Reprogrammed for Freda Left Ear: Make, Model, Color, Serial Number: Manuel Mcdowell Q50-SP SN: [id number] Color: [place] brown Father's old hearing aids reprogrammed for Freda - Freda's original hearing aids lost Test Inspection Engineer Repair Warranty: Test Inspection Engineer Loss and Damage Warranty: [facility] Service Plan: Battery Size: 13 Special Agent Fbi/Slim Tube: Size #1 slim tube Earmold/Dome/CShell/SlimTip: Medium closed dome Type of Wax Guard: Dispensed By: [facility] Date of Fittin09/23/2014 - Reprogrammed for Freda Follow-Up Summary: HAs dropped off. Tubing changed, domes changed, mics vac'd. Listening check ok. Aids have open domes but original fitting note says closed domes, software says earmolds, open domes not appropriate for hearing loss so changed to closed. Sent to [facility] for same day patient pickup. Recommendations: Recommendations: Hearing instrument follow-up or maintenance as needed. Recommendations (Other): Diagnosis Code(s): Primary Diagnosis: H90.6 Bilateral Mixed Hearing Loss Signature: Provider: Josy Elmore, [facility]
== END 2024-06-06 11:17 | disposition home or self-care (01) ==
LOC: HO.HAP 11:16
PROVIDERS: Visit Provider Internal Medicine
DX: Z46.1 Encounter for fitting and adjustment of hearing aid (principal); H90.6 Mixed conductive and sensorineural hearing loss, bilateral
CPT/HCPCS: 92593; 99499; V5266

== ENCOUNTER → 2024-06-18 12:30 | Outpatient (BNV) | payer OTHER, SELFPAY | PROVIDERS: PCP Internal Medicine; Visit Provider Internal Medicine | DX: Z12.31 Encounter for screening mammogram for malignant neoplasm of breast (principal) | CPT/HCPCS: 77063; 77067 ==

== ENCOUNTER → 2024-06-27 08:14 | Outpatient (BNVA) | payer OTHER, SELFPAY | PROVIDERS: PCP Internal Medicine; Visit Provider Surgery ==

== ENCOUNTER 2024-07-08 08:03 | Outpatient (AMB) | payer OTHER, SELFPAY ==
--- OUTSIDE RECORDS SUMMARY | 2024-06-27 08:22 | XMS_ITS | Data Portability ---
Author Organization [place] - [facility], Allergy Address [address] [address] Care Team Providers Care Lead Consultant Name Role Phone MIKAL LACY Primary Care Provider Assessment No assessment recorded. Plan of Treatment Reminders Order Date Submit Date Provider Last Modified By Organization Details Last Modified Time Details Appointments None recorded. Lab None recorded. Referral None recorded. Procedures None recorded. Surgeries None recorded. Imaging None recorded. Medication Orders Allergy Relief (fluticas one) 50 mcg/actua tion nasal spray,brooke pension 024 024 [id number], [address] [place], [place], [phone], 4 15:51:23 Patient TargetsNo targets recorded. Patient InstructionsNo instructions recorded. Reason for Referral None Reported. Problems Name Problem SNOMED Code Status Onset Date Resolution Date Notes Provider Name and Address Organization Details Recorded Time Otorrhea of left ear 56234888230 87579 Completed 201512/14/2023 Otorrhea , left ear; Note: Date Diagnose d: 6 3:28 PM (H92.12) Not Available [facility] 4 02:13:24 Chronic mucoid otitis media of right middle ear 47059376582 86216 Active 2018 Chronic mucoid otitis media, right ear; Note: Date Diagnose d: 02/28/20 19 1:48 PM (H65.31) Not Available [facility] 4 02:14:43 Mixed conducti ve and sensorin eural hearing loss, bilatera l 884453292 Active 2015 Mixed conducti ve and sensorin eural hearing loss, bilatera l; Note: Date Diagnose d: 6 5:54 PM (H90.6) Not Available [facility] 4 02:13:36 Deviated nasal septum 576007112 Active 2018 Deviated nasal septum; Note: Date Diagnose d: 02/28/20 19 3:44 PM (J34.2) Not Available [facility] 4 02:13:39 Bilatera l chronic serous otitis 303981350 Active 2015 Chronic serous otitis media, bilatera l; Note: Date Diagnose d: 6 5:54 PM (H65.23) Not Available [facility] 4 02:14:22 Sensorin eural hearing loss in left ear 02448475043 109 Active 2018 Sensorin eural hearing loss, unilater al, left ear, with restrict ed hearing on the contrala teral side; Note: Date Diagnose d: 02/28/20 19 1:32 PM (H90.A22 ) Not Available [facility] 4 02:14:19 Sleep apnea 88620494 Active 2015 Sleep apnea, unspecif ied; Note: Date Diagnose d: 6 4:46 PM (G47.30) Not Available [facility] 4 02:12:44 Bilatera l disorder of Eustachi an tubes 93492783083 48721 Active 2015 Other specifie d disorder s of Eustachi an tube, bilatera l; Note: Date Diagnose d: 6 5:54 PM (H69.83) Not Available [facility] 4 02:14:32 Hypertro phy of nasal turbinat es 49880133 Active 2018 Hypertro phy of nasal turbinat es; Note: Date Diagnose d: 02/28/20 19 1:49 PM (J34.3) Not Available [facility] 4 02:14:22 Mixed conducti ve and sensorin eural hearing loss of right ear 18945591438 105 Active 2018 Mixed conducti ve and sensorin eural hearing loss, unilater al, right ear with restrict ed hearing on the contrala teral side; Note: Date Diagnose d: 02/28/20 19 1:32 PM (H90.A31 ) Not Available [facility] 4 02:14:50 Recurren t acute serous otitis media of right middle ear 49707415271 25618 Active 2018 Acute serous otitis media, recurren t, right ear; Note: Date Diagnose d: 02/28/20 19 3:44 PM (H65.04) Not Available [facility] 4 02:14:15 Nasal congesti on 02354778 Active 2018 Nasal congesti on; Note: Date Diagnose d: 02/28/20 1:49 PM (R09.81) Not Available [facility] 4 02:13:49 Hypertro phy of adenoids 570799275 Completed 201812/14/2023 Hypertro phy of adenoids ; Note: Date Diagnose d: 02/28/20 19 2:06 PM (J35.2) Not Available [facility] 4 02:12:59 Allergic rhinitis 49943676 Active 2018 Other allergic rhinitis ; Note: Date Diagnose d: 02/28/20 1:49 PM (J30.89) Not Available [facility] 4 02:13:32 Chronic rhinitis 91505718 Active 2023 ZA EMMANUEL MD [address] [place] [address], [place], [address] , [facility] - [facility] 4 15:49:47 Cigarett e smoker 44116199 Active 2023 ZA EMMANUEL MD [address] [place] [address], [place], [address] , [facility] - [facility] 4 15:51:33 Problem Notes None recorded. Medical Equipment None Reported. Allergies No known drug allergies Medications Name Sig Start Date Stop Date Status Note LastModified by Organization Details LastModified Time cyclobenz aprine 10 mg tablet TAKE 1 TABLET BY MOUTH THREE TIMES DAILY NEEDED FOR MUSCLE SPASM 04/30 completed Not Available Not Available Not Available Pain Reliever Extra Strength (acetamin ophen) 500 mg tablet TAKE 1 TABLET BY MOUTH EVERY 6 HOURS NEEDED FOR PAIN 04/30 completed Not Available Not Available Not Available bupropion HCl SR 150 mg tablet,12 hr sustained -release 04/30 completed Medicati on ID: [id number] D uration Value: 30 Brand Name: bupropio n HCl Send Method: E-Prescr ibed Sub s Allowed: subs OK Medic ationGen ericName : bupropio n HCl Not Available Not Available Not Available azithromy becky 250 mg tablet TAKE 2 TABLETS BY MOUTH NOW THEN 1 TABLET BY MOUTH DAILY FOR 4 DAYS 04/30 completed Not Available Not Available Not Available ibuprofen 800 mg tablet TAKE 1 TABLET BY MOUTH TWICE DAILY NEEDED active Not Available Not Available No t Available prednison e 20 mg tablet TAKE 2 TABLETS BY MOUTH DAILY 04/30 completed Not Available Not Available Not Available amlodipin e 5 mg tablet 2015 active Medicati on ID: [id number] D uration Value: 30 Brand Name: amlodipi ne Send Method: E-Prescr ibed Sub s Allowed: subs OK Medic ationGen ericName : amlodipi ne Not Available Not Available Not Available aspirin 81 mg tablet,de layed release TAKE 1 TABLET BY MOUTH EVERY DAY active Not Available Not Available No t Available ofloxacin 0.3 % ear drops Instill 4 drop into both ears twice a day 04/30 completed Medicati on ID: [id number] D uration Value: 7 Prescri bed By Name: Jeffery Gavin nd Name: ofloxaci n Send Method: E-Prescr ibed Sub s Allowed: subs OK Speci al Instruct ion: x 5 days Med icationG enericNa me: ofloxaci n Not Available Not Available Not Available amoxicill in 875 mg tablet TAKE 1 TABLET BY MOUTH TWICE DAILY 04/30 completed Not Available Not Available Not Available econazole nitrate 1 % topical cream 04/30 completed Medicati on ID: [id number] D uration Value: 7 Brand Name: econazol e Send Method: E-Prescr ibed Sub s Allowed: subs OK Medic ationGen ericName : econazol e Not Available Not Available Not Available lidocaine 5 % topical patch APPLY 1 PATCH TO TO THE AFFECTED AREA FOR MAX 12 HOURS A DAY 04/30 completed Not Available Not Available Not Available hydrochlo rothiazid e 12.5 mg capsule TAKE 1 CAPSULE BY MOUTH EVERY DAY active Not Available Not Available No t Available sertralin e 25 mg tablet TAKE 1 TABLET BY MOUTH EVERY MORNING active Not Available Not Available No t Available fluticaso ne propionat e 50 mcg/actua tion nasal spray,brooke pension [place] 2 sprays every day by intranas al route. active Not Available Not Available No t Available TobraDex 0.3 %-0.1 % eye drops,brooke pension 02/27 completed Medicati on ID: [id number] P cynthia d By Name: TRACEE Shannon nd Name: TobraDex Send Method: E-Prescr ibed Sub s Allowed: subs OK Speci al Instruct ion: 4 drops into affected ear BID X 14 days Med icationG enericNa me: TobraDex Not Available Not Available Not Available bupropion HCl SR 200 mg tablet,12 hr sustained -release TAKE 1 TABLET BY MOUTH DAILY 04/30 completed Not Available Not Available Not Available cyclobenz aprine 5 mg tablet TAKE 1 TO 2 TABLETS BY MOUTH EVERY NIGHT AT BEDTIME NEEDED FOR PAIN 04/30 completed Not Available Not Available Not Available bupropion HCl XL 300 mg 24 hr tablet, extended release TAKE 1 TABLET BY MOUTH DAILY active Not Available Not Available No t Available diclofena c 1 % topical gel USE ON AFFECTED AREA TWICE DAILY NEEDED 04/30 completed Not Available Not Available Not Available melatonin 5 mg tablet TAKE 1-2 TABLET BY MOUTH ONCE DAILY NEEDED AT BEDTIME 04/30 completed Not Available Not Available Not Available Breo Ellipta 100 mcg-25 mcg/dose powder for inhalatio n INHALE 1 PUFF BY MOUTH DAILY active Not Available Not Available No t Available Vitals None Recorded Social History None recorded. Functional Status None recorded. Mental Status None recorded. Family History Nothing Reported. Medical History Condition Response Hypertension Y Gynecological HistoryNo gynecological history recorded. Obstetrics History GPAL:G 0 P 0 0 0 0 Past Encounters Encounter ID Performer Location Encounter Start Date Encounter Closed Date Diagnosis/Indication Diagnosis SNOMED-CT Code Diagnosis ICD10 Code Diagnosis Note [id number] ZA EMMANUEL MD [facility] [address] [place] [address] 04/30/2024 14:55:03 04/30/2024 15:53:53 Chronic rhinitis 77340095 J31.0 Patient has chronic rhinitis which is likely a combinatio n of allergies and cigarette smoke irritation . Recommende d nasal saline spray after smoking. Also recommende d fluticason e spray 2 puffs in both nostrils every day. These will also probably help with her underlying eustachian tube dysfunctio n. Overall I recommende d stopping smoking as an even better remedy for her chronic rhinitis. Cigarette smoker 7410383 7 F17.210 Nasal congestion 0574256 0 R09.81 Mixed cond uctive and sensorineural hearing loss, bilateral 604714707 H90.6 Patient will continue to follow-up at [facility]iology for hearing aid maintenanc e. Bilateral disorder of Eustachian tubes 8097919314 390389 H69.83 Health Concerns Section Related Observation LastModified by Organization Detai ls LastModified Time None Recorded Concern Status LastModified by Organization Details LastModified Time None Recorded Advance Directives Directive None Recorded Payers Encounter Date Sequence Insurance Name Policy Number Policy Galeas Covered Member ID Galeas Member ID Guarantor Name 04/30/2024 1 [facility] [employer] - DIRECT - [place] (HMO) [id number] Freda Avendano [id number] 1 Freda Avendano Notes Date Note Type Note Provider Name and Address Organization Details Recorded Time 04/30/2024 text/html 52-year-old fema le with history of chronic eustachian tube dysfunction, status post bilateral balloon dilation of the eustachian tube with adenoidectomy and concurrent tympanostomy tube placement back in April 2019. Following extrusion of tympanostomy tubes patient has had recurrent of chronic right middle ear effusion. At her last visit 8 months ago we discussed possible replacement of tympanostomy tube in the office but she had no interest in this. She has been using amplification to remedy the residual conductive hearing loss. ZA EMMANUEL MD [address] [place] [address], [place], [address], [facility] - [facility] 04/30/2024 15:55:18 OBGyn Episode No OBEpisode recorded.
--- NOTE | 2024-07-08 10:07 | MHC.OFFVISWM ---
VS Expanded 07/08/24 10:33 Height 5 ft 2 in Weight 369 lb 2 oz BMI 67.5 Body Fat % 53.7 Body Fat Mass 198.2 Fat Free Mass 170.8 Body Water % 33 Body Water Mass 121.6 Basal Metabolic Rate/Score 2,522 Intake Visit Reasons: [employer] BMI 67.6 Allergies No Known Allergies Allergy (Verified 07/08/24 10:07) Medication List - Last Reconciled 07/08/24 by Sanjay Aguillon MD aspirin 81 mg PO QAM bupropion HCl XL 300 mg PO DAILY fluticasone furoate-vilanterol 100-25 mcg/dose (Breo Ellipta) 1 ea PO DAILY hydrochlorothiazide 12.5 mg PO DAILY lidocaine 5% (Lidoderm) 1 patch topical DAILY HPI HPI [employer] BMI 67.6: Details: Start time: 9.55am, End time: 10.40am ?I spent 40 minutes speaking with the patient on the phone plus an additional 5 minutes reviewing and updating records for a total of 45 minutes HPI Comments Details: Previous weight loss efforts: Exercise, low carb diet Wakes up: dozing off in and out throughout the day Breakfast: (16gr Atkins shake, or eggs with toast) Lunch: (11am: tuna, sandwich) Dinner: 3-5pm (chicken and noodles, cabbage, potatoes) Snacks: between breakfast and lunch (chips), between lunch and dinner (salad), snacks after dinner (Morales soups) Exercise: none Fluids: Coffee: occasionally, tea: rarely, soda: rarely, Coke Zero, juice: Cranberry juice, ETOH: 1/month PFSH Medical History (Updated 07/08/24 @ 10:13 by Sanjay Aguillon MD) DJD (degenerative joint disease) Morbid obesity Depression Hx of sleep apnea Extreme obesity Ectopic Hypertension Surgical History Hx of myringotomy Hx of oral surgery Hx of adenoidectomy History of hernia surgery Family History Mother History of breast cancer Diabetes Obesity Lung cancer Son No problems noted. Daughter No problems noted. Social History (Updated 06/18/24 @ 11:37 by SABRINA Mckinnon Alcohol intake: current Alcohol intake frequency: holidays/special occasions only Alcohol type: beer and wine Patient Tobacco Use Status: Current everyday Tobacco user Tobacco use type: Cigarette Cigarettes Per Day: 3 Years Smoked: 40, recently began decreasing intake Female Reproductive History Menstrual Age of Menarche: 11 Telehealth Telehealth Telehealth Platform: Telephone Location of provider rendering services: practice address Location of patient: address on file Patient Identification confirmed using: Name, : Yes Telehealth method: voice only Patient verbally consented to treatment: Yes Patient verbally consented to billing insurance company: Yes Patient informed of any privacy concerns related to visit: Yes Minutes spent on Phone/Video with Pt.: 45 Assessment & Plan Assessment & Plan (1) Morbid obesity: Code(s): E66.01 - Morbid (severe) obesity due to excess calories Category: Medical Plan: 1.? Plan for lap sleeve gastrectomy. If diaphragmatic or ventral hernias are present at time of surgery, these will be repaired laparoscopically as well. I emphasized the importance of close follow-up, adherence to instructions and good communication. The surgery does not replace the need to change your lifestlyle which is the cause of the obesity problem. The surgery provides the motivation to try again to change your lifestyle, it reduces the appetite and make the transition to a better lifestyle easier and doubles the amount of weight you would lose compared to doing the lifestyle change without the surgery. You will need to be on a liquid diet with protein shakes for 2 weeks before surgery to maximize weight loss and boost your nutritional status to recover better from surgery and also for the first two weeks after surgery to let the stomach heal before we introduce other foods. After the first 2 weeks we will introduce protein bars and soft foods like scrambled eggs, cottage cheese and yogurt and after the 6th week will introduce meat, fish and cooked vegetables in small amounts. Over time you should be able to eat everything in small amounts. Side effects like nausea, vomiting, heartburn or abdominal pain are not common in the practice unless you are not following in the practice. This operation requires lifetime commitment to following in our practice and communication with me. You will much less weight and experience side effects if you don?t communicate or not following in the practice. Complications are rare and in our practice is about 1/10 of the national average. However, you can develop bleeding that may require transfusion (hasn?t happened for year in the practice), you may from complications (we did not have any deaths in the practice) and infections. Infections are usually a result of breakdown in communication or not understanding or following directions correctly. They are difficult to treat, they can happen during the first 6 weeks, they may require to be in the hospital for weeks or even months, not being able to eat by mouth and you may have drains and surgeries to try and correct the issue. Other risks and complications include possible conversion to an open procedure, leaks, small bowel obstruction, blood clots, cardiac, or pulmonary complications, as exterminator complications such as ulcers, insufficient weight loss and vitamin deficiencies. 2. Please buy a body composition scale 3. Please buy a stationary bike 4. Please buy the [employer] protein bars 5. Start the Zepbound when you get your body composition scale once a week. We discussed the potential side effects of Zepbound such as nausea, vomiting, abdominal pain, diarrhea and constipation and you will need to contact me if any of these symptoms occur or for any other new symptom you may experience (2) Severe obstructive sleep apnea: Code(s): G47.33 - Obstructive sleep apnea (adult) (pediatric) Category: Medical Plan: The patient has severe sleep apnea with AHI: 36. However on recent in-hospital titration study she could not tolerate any mask. I will refer to [facility] for a more thorough investigation as to which mask would be the best fit for her. Patient is in agreement. Medications: New tirzepatide (weight loss) (Zepbound) for 4 weeks 2.5 mg (0.5 mL) subcut QWEEK 2 mL 0RF E66.01 - Morbid (severe) obesity due to excess calories
[2024-07-08 10:33] VITALS: BMI 67.5
== END 2024-07-08 10:41 | disposition home or self-care (01) ==
PROVIDERS: PCP Internal Medicine; Visit Provider Surgery
DX: E66.813 Obesity, class 3 (principal); Z68.44 Body mass index [BMI] 60.0-69.9, adult; G47.33 Obstructive sleep apnea (adult) (pediatric)
CPT/HCPCS: 98014

== ENCOUNTER → 2024-07-08 08:03 | Outpatient (BNVA) | payer OTHER, SELFPAY | PROVIDERS: PCP Internal Medicine; Visit Provider Surgery ==

== ENCOUNTER → 2024-07-22 10:21 | Outpatient (BNVA) | payer OTHER, SELFPAY | PROVIDERS: PCP Internal Medicine; Visit Provider Physician Assistant Surgical ==

== ENCOUNTER 2024-07-25 08:37 | Outpatient (REF) | payer OTHER, SELFPAY ==
--- NOTE | ~2024-07-25 | XR_ITS ---
EXAMINATION: XR CHEST 2 VIEWS HISTORY: E66.01 - Morbid (severe) obesity due to excess calories COMPARISON: Comparison is made with the prior examination dated 11/03/2020. FINDINGS: PA and lateral views of the chest are submitted. The lungs are expanded and clear. There is no pleural effusion, pneumothorax, or pulmonary vascular congestion. The heart is normal in size. There is degenerative disc disease of the spine. XR/XR chest 2V IMPRESSION: Clear lungs. Electronically signed by: Jorgito Talbot MD 07/25/2024 11:21 AM EDT
--- NOTE | 2024-07-25 08:48 | ECG_ITS ---
Test Reason : E66.01 Blood Pressure : */* mmHG Vent. Rate : 91 BPM Atrial Rate : 91 BPM P-R Int : 150 ms QRS Dur : 84 ms QT Int : 344 ms P-R-T Axes : 49 -51 43 degrees QTcB Int : 423 ms Normal sinus rhythm Left axis deviation Abnormal ECG When compared with ECG of 03-Nov-2020 11:48, No significant change was found Referred By: Sanjay Aguillon Electronically Signed By: AISHA AVILES
--- OUTSIDE RECORDS SUMMARY | 2024-07-25 08:52 | XMS_ITS | Data Portability ---
Author Organization [place] - [facility], Allergy Address [address] [address] Care Team Providers Care Candle Cutter Name Role Phone MIKAL LACY Primary Care Provider [phone] Assessment No assessment recorded. Plan of Treatment Reminders Order Date Submit Date Provider Last Modified By Organization Details Last Modified Time Details Appointments None recorded. Lab None recorded. Referral None recorded. Procedures None recorded. Surgeries None recorded. Imaging None recorded. Medication Orders Allergy Relief (fluticas one) 50 mcg/actua tion nasal spray,brooke pension 024 024 [facility] #[id number], [address], [place], [phone], 4 15:51:23 Patient TargetsNo targets recorded. Patient InstructionsNo instructions recorded. Reason for Referral None Reported. Problems Name Problem SNOMED Code Status Onset Date Resolution Date Notes Provider Name and Address Organization Details Recorded Time Otorrhea of left ear 03394814508 46134 Completed 201512/14/2023 Otorrhea , left ear; Note: Date Diagnose d: 6 3:28 PM (H92.12) Not Available [facility] 4 02:13:24 Chronic mucoid otitis media of right middle ear 49354815845 35082 Active 2018 Chronic mucoid otitis media, right ear; Note: Date Diagnose d: 02/28/20 19 1:48 PM (H65.31) Not Available [facility] 4 02:14:43 Mixed conducti ve and sensorin eural hearing loss, bilatera l 601068592 Active 2015 Mixed conducti ve and sensorin eural hearing loss, bilatera l; Note: Date Diagnose d: 6 5:54 PM (H90.6) Not Available [facility] 4 02:13:36 Deviated nasal septum 636094417 Active 2018 Deviated nasal septum; Note: Date Diagnose d: 02/28/20 19 3:44 PM (J34.2) Not Available [facility] 4 02:13:39 Bilatera l chronic serous otitis 264101720 Active 2015 Chronic serous otitis media, bilatera l; Note: Date Diagnose d: 6 5:54 PM (H65.23) Not Available [facility] 4 02:14:22 Sensorin eural hearing loss in left ear 91516401403 109 Active 2018 Sensorin eural hearing loss, unilater al, left ear, with restrict ed hearing on the contrala teral side; Note: Date Diagnose d: 02/28/20 19 1:32 PM (H90.A22 ) Not Available [facility] 4 02:14:19 Sleep apnea 93073183 Active 2015 Sleep apnea, unspecif ied; Note: Date Diagnose d: 6 4:46 PM (G47.30) Not Available [facility] 4 02:12:44 Bilatera l disorder of Eustachi an tubes 67741948692 27540 Active 2015 Other specifie d disorder s of Eustachi an tube, bilatera l; Note: Date Diagnose d: 6 5:54 PM (H69.83) Not Available [facility] 4 02:14:32 Hypertro phy of nasal turbinat es 91239591 Active 2018 Hypertro phy of nasal turbinat es; Note: Date Diagnose d: 02/28/20 19 1:49 PM (J34.3) Not Available [facility] 4 02:14:22 Mixed conducti ve and sensorin eural hearing loss of right ear 32861722840 105 Active 2018 Mixed conducti ve and sensorin eural hearing loss, unilater al, right ear with restrict ed hearing on the contrala teral side; Note: Date Diagnose d: 02/28/20 19 1:32 PM (H90.A31 ) Not Available [facility] 4 02:14:50 Recurren t acute serous otitis media of right middle ear 66833692186 79116 Active 2018 Acute serous otitis media, recurren t, right ear; Note: Date Diagnose d: 02/28/20 19 3:44 PM (H65.04) Not Available [facility] 4 02:14:15 Nasal congesti on 02026429 Active 2018 Nasal congesti on; Note: Date Diagnose d: 02/28/20 1:49 PM (R09.81) Not Available [facility] 4 02:13:49 Hypertro phy of adenoids 129402407 Completed 201812/14/2023 Hypertro phy of adenoids ; Note: Date Diagnose d: 02/28/20 19 2:06 PM (J35.2) Not Available [facility] 4 02:12:59 Allergic rhinitis 66694995 Active 2018 Other allergic rhinitis ; Note: Date Diagnose d: 02/28/20 1:49 PM (J30.89) Not Available [facility] 4 02:13:32 Chronic rhinitis 59370243 Active 2023 ZA EMMANUEL MD [address] [place] [address], [place], [address] , [facility] - [facility] 4 15:49:47 Cigarett e smoker 92291717 Active 2023 ZA EMMANUEL MD [address] [place] [address], [place], [address] , [facility] - [facility] 4 15:51:33 Problem Notes None recorded. Medical [...] sustained -release 04/30 completed Medicati on ID: [id number] D uration Value: 30 Brand Name: bupropio [...] mg tablet 2015 active Medicati on ID: [id number] D uration Value: 30 Brand Name: amlodipi [...] a day 04/30 completed Medicati on ID: [id number] D uration Value: 7 Prescri bed By [...] topical cream 04/30 completed Medicati on ID: [id number] D uration Value: 7 Brand Name: econazol [...] e 50 mcg/actua tion nasal spray,brooke pension [place] 2 sprays every day by intranas al route. active Not Available Not Available No t Available TobraDex 0.3 %-0.1 % eye drops,brooke pension 02/27 completed Medicati on ID: [id number] P cynthia d By Name: TRACEE Shannon [...] SNOMED-CT Code Diagnosis ICD10 Code Diagnosis Note [id number] ZA EMMANUEL MD [facility] [address] [place] [address] 04/30/2024 14:55:03 04/30/2024 15:53:53 Chronic rhinitis 16899521 J31.0 Patient has chronic rhinitis which is [...] remedy for her chronic rhinitis. Cigarette smoker 2437324 7 F17.210 Nasal congestion 7569887 0 R09.81 Mixed cond uctive and sensorineural hearing loss, bilateral 201410067 H90.6 Patient will continue to follow-up at [facility] audiology for hearing aid maintenanc e. Bilateral disorder of Eustachian tubes 3182677890 153860 H69.83 Health Concerns Section Related Observation LastModified by Organization Detai ls LastModified Time None Recorded Concern Status LastModified by Organization Details LastModified Time None Recorded Advance Directives Directive None Recorded Payers Encounter Date Sequence Insurance Name Policy Number Policy Galeas Covered Member ID Galeas Member ID Guarantor Name 04/30/2024 1 [facility] [employer] - DIRECT - [place] ZERO (HMO) [id number] Freda Avendano [id number] 1 Freda Avendano Notes Date Note Type [...] residual conductive hearing loss. ZA EMMANUEL MD [address] [place] [address], [place], [address], [facility] - [facility] 04/30/2024 15:55:18 OBGyn Episode No OBEpisode recorded.
[2024-07-25 09:04] LABS: MANUAL DIFF FLAG NO
[2024-07-25 09:14] LABS: Basophils Absolute Auto 0.1 X10*3/uL (0.0-0.2); Basophils Percent Auto 0.7 % (0-2); Eosinophils Absolute Auto 0.2 X10*3/uL (0.0-0.4); Eosinophils Percent Auto 2.6 % (0-4); Hematocrit 41.3 % (37.0-47.0); Imm Gran Abs Auto 0.02 X10*3/uL (0.00-0.03); Imm Gran Pct Auto 0.3 % (0.0-0.4); Lymphocytes Absolute Auto 2.7 X10*3/uL (1.2-4.9); Mean Corpuscular HGB Conc 33.9 g/dl (31.0-35.0); Mean Corpuscular Hemoglobin 30.6 pg (27.0-33.0); Mean Corpuscular Volume 90.2 fL (80.0-98.0); Mean Platelet Volume 8.9 fL (9.4-12.3); Monocytes Absolute Auto 0.5 X10*3/uL (0.1-1.2); Monocytes Percent Auto 7.7 % (2-11); Neutrophils Absolute Auto 3.5 x10*3/uL (2.0-8.3); Neutrophils Percent Auto 49.7 % (45-73); Platelet Count 350 X10*3/uL (160-400); Red Blood Count 4.58 X10*6/uL (4.20-5.50); Red Cell Distribution Width 12.2 % (11.0-16.0)
[2024-07-25 09:21] LABS: Estimated Average Glucose 137 mg/dL; Hemoglobin A1c % 6.4 % (<6.0)
[2024-07-25 10:22] LABS: Anion Gap 14 (12-20)
[2024-07-25 10:28] LABS: Alanine Aminotransferase 34 U/L (0-31); Albumin Level 4.1 g/dL (3.5-5.0); Alkaline Phosphatase 67 U/L (39-117); Aspartate Amino Transferase 20 U/L (5-31); Bilirubin Total 0.4 mg/dL (0.0-1.0); Blood Urea Nitrogen 12 mg/dL (9-16); C Reactive Protein 1.99 mg/dL (< or = 0.50); Calcium 9.6 mg/dL (8.4-10.2); Carbon Dioxide 26 mmol/L (22-29); Chloride 104 mmol/L (96-108); Cholesterol 206 mg/dL (<200); Estimated Glomerular Filt Rate > 60; Glucose Random 107 mg/dL (60-115); HDL Cholesterol 43 mg/dL (>40); Iron 65 mcg/dL (30-160); LDL Cholesterol Calculated 137 mg/dL (<100); Percent Iron Saturation 22 % (15-50); Potassium 3.7 mmol/L (3.3-5.1); Sodium 140 mmol/L (135-145); Total Iron Binding Capacity 297 mcg/dL (228-428); Triglycerides 130 mg/dL (<150); Unsaturated Iron Binding 232 ug/dL
[2024-07-25 10:43] LABS: Ferritin 104 ng/mL (10-250); Folate 8.1 ng/mL (> or = 4.0); Vitamin B12 667 pg/mL (200-900); Vitamin D 25-OH Total 14.3 ng/mL (>30)
[2024-07-25 11:19] LABS: Insulin 24 uU/mL (2-29)
[2024-07-25 12:18] LABS: Free T4 (Free Thyroxine) 0.93 ng/dL (0.71-1.85)
[2024-07-29 04:09] LABS: Zinc 63 mcg/dL (60-130)
[2024-07-30 01:09] LABS: Vitamin A 61 mcg/dL (38-98)
[2024-08-03 11:44] LABS: Vitamin B1 11 nmol/L (8-30)
== END 2024-07-25 08:38 | disposition home or self-care (01) ==
LOC: HO.LAB 08:37
PROVIDERS: PCP Internal Medicine; Visit Provider Surgery
DX: E66.01 Morbid (severe) obesity due to excess calories (principal); I10 Essential (primary) hypertension; G47.33 Obstructive sleep apnea (adult) (pediatric); R94.31 Abnormal electrocardiogram [ECG] [EKG]
CPT/HCPCS: 36415; 71046; 80053; 80061; 82306; 82607; 82728; 82746; 83036; 83525; 83540; 84425; 84439; 84443; 84590; 84630; 85025; 86140; 93005

== ENCOUNTER → 2024-07-25 08:48 | Outpatient (BNV) | payer OTHER, SELFPAY | PROVIDERS: PCP Internal Medicine; Visit Provider Internal Medicine | DX: R94.31 Abnormal electrocardiogram [ECG] [EKG] (principal); E66.01 Morbid (severe) obesity due to excess calories | CPT/HCPCS: 93010 ==

== ENCOUNTER → 2024-07-25 09:14 | Outpatient (BNV) | payer OTHER, SELFPAY | PROVIDERS: PCP Internal Medicine; Visit Provider Radiology Diagnostic Radiology | DX: E66.01 Morbid (severe) obesity due to excess calories (principal) | CPT/HCPCS: 71046 ==

== ENCOUNTER 2024-08-15 08:46 | Outpatient (REF) | payer OTHER, SELFPAY ==
--- NOTE | ~2024-08-15 | US_ITS ---
EXAMINATION: US ABDOMEN COMPLETE WITH LIVER ELASTOGRAPHY HISTORY: E66.01 - Morbid (severe) obesity due to excess calories TECHNIQUE: Real-time grayscale ultrasound imaging of the abdomen was performed and images were reviewed. COMPARISON: There are no prior studies for comparison. FINDINGS: Liver: The right lobe of the liver measures 19.1 cm in size. The left lobe of the liver measures 12.1 cm in size. The liver demonstrates coarsened increased echotexture, consistent with steatosis. No focal mass or intrahepatic biliary ductal dilatation is identified. There is normal hepatopedal flow in the portal vein. Ultrasound elastography of the liver was performed with 10 separate measurements of the liver parenchyma with the patient in the supine position. Measurements were obtained approximately 2 cm below Dharmesh's capsule and perpendicular to the capsule. Images are of satisfactory quality. The median shear wave velocity is 1.11 m/s. The interquartile range/median (IQR/median) is 0.32. Gallbladder and biliary tree: The gallbladder is suboptimally visualized, and appears mildly contracted. No definite cholelithiasis. There is no sonographic Ramos sign. The common bile duct measures 8 mm in diameter. Kidneys: The right kidney measures 10.8 cm in length. The left kidney measures 12.8 cm in length. There is a 3.3 x 2.5 x 2.5 cm cyst in the interpolar region of the left kidney. The kidneys are otherwise unremarkable, without evidence of solid masses, hydronephrosis, or calculi. Pancreas: The pancreatic head, neck, and body are unremarkable. The pancreatic tail is obscured by bowel gas. Spleen: The spleen is normal in size and contour, measuring 9.7 cm in length. Abdominal aorta and inferior vena cava: The visualized portions of the abdominal aorta and inferior vena cava are normal in caliber. There is no free fluid in the abdomen. US/US abdomen comp w elastography IMPRESSION: Hepatomegaly and hepatic steatosis. The median shear wave velocity in the liver is 1.11 m/s, corresponding to a median liver stiffness of 3.7 kPa. The IQR/median value is 0.32. This is indicative of a poor quality data set, and the estimated liver stiffness may be unreliable. Findings are indicative of a normal elastography value with a low likelihood of severe fibrosis or cirrhosis. REFERENCE: Society of Radiologists in Ultrasound Liver Stiffness Thresholds (2020): LIVER STIFFNESS THRESHOLDS: *Shear wave velocity less than 1.3 m/s (Liver Stiffness equal or less than 5 kPa): High probability of being normal. *Shear wave velocity less than 1.7 m/s (Liver Stiffness less than 9 kPa): In the absence of other known clinical signs, rules out compensated advanced chronic liver disease. *Shear wave velocity between 1.7-2.1 m/s (Liver Stiffness 9-13 kPa): Suggestive of compensated advanced chronic liver disease but need further test for confirmation. *Shear wave velocity between 2.1-2.4 m/s (Liver Stiffness 13-17 kPa): Rules in compensated advanced chronic liver disease. *Shear wave velocity greater than 2.4 m/s (Liver Stiffness over 17 kPa): Suggestive of clinically significant portal hypertension. QUALITY OF DATA SET: *IQR/Median value equal or less than 0.15 implies a quality data set. *IQR/Median value over 0.15 implies a poor quality data set. SIGNIFICANT CHANGE FROM PRIOR EXAM: Significant change if liver stiffness measurement is 10% or greater from prior exam. OTHER CONSIDERATIONS: The stage of liver fibrosis may be overestimated in the setting of acute hepatitis, liver inflammation, elevated liver function tests, hepatic vascular congestion, obstructive cholestasis, non-fasting state, and infiltrative diseases such as amyloidosis and lymphoma. In some patients with NAFLD, the liver stiffness thresholds for compensated advanced chronic liver disease may be lower. In causes other than viral hepatitis and NAFLD, liver stiffness thresholds are not well established. Electronically signed by: Jorgito Talbot MD 08/15/2024 10:03 AM EDT
--- OUTSIDE RECORDS SUMMARY | 2024-08-15 09:15 | XMS_ITS | Data Portability ---
Author Organization [place] - [facility], Allergy Address [address] [address] Care Team Providers Care Silk Examiner Name Role Phone MIKAL LACY Primary Care Provider Assessment No assessment recorded. Plan of Treatment Reminders Order Date Submit Date Provider Last Modified By Organization Details Last Modified Time Details Appointments None recorded. Lab None recorded. Referral None recorded. Procedures None recorded. Surgeries None recorded. Imaging None recorded. Medication Orders Allergy Relief (fluticas one) 50 mcg/actua tion nasal spray,brooke pension 024 024 [id number], [address] [place], [place], [phone], 4 15:51:23 Patient TargetsNo targets recorded. Patient InstructionsNo instructions recorded. Reason for Referral None Reported. Problems Name Problem SNOMED Code Status Onset Date Resolution Date Notes Provider Name and Address Organization Details Recorded Time Otorrhea of left ear [id number] 25690 Completed 201512/14/2023 Otorrhea , left ear; Note: Date Diagnose d: 6 3:28 PM (H92.12) Not Available [facility] 4 02:13:24 Chronic mucoid otitis media of right middle ear [id number] 40095 Active 2018 Chronic mucoid otitis media, right ear; Note: Date Diagnose d: 02/28/20 19 1:48 PM (H65.31) Not Available [facility] 4 02:14:43 Mixed conducti ve and sensorin eural hearing loss, bilatera l 141765843 Active 2015 Mixed conducti ve and sensorin eural hearing loss, bilatera l; Note: Date Diagnose d: 6 5:54 PM (H90.6) Not Available [facility] 4 02:13:36 Deviated nasal septum 743192340 Active 2018 Deviated nasal septum; Note: Date Diagnose d: 02/28/20 19 3:44 PM (J34.2) Not Available [facility] 4 02:13:39 Bilatera l chronic serous otitis 021995528 Active 2015 Chronic serous otitis media, bilatera l; Note: Date Diagnose d: 6 5:54 PM (H65.23) Not Available [facility] 4 02:14:22 Sensorin eural hearing loss in left ear 87929752015 109 Active 2018 Sensorin eural hearing loss, unilater al, left ear, with restrict ed hearing on the contrala teral side; Note: Date Diagnose d: 02/28/20 19 1:32 PM (H90.A22 ) Not Available [facility] 4 02:14:19 Sleep apnea 48320446 Active 2015 Sleep apnea, unspecif ied; Note: Date Diagnose d: 6 4:46 PM (G47.30) Not Available [facility] 4 02:12:44 Bilatera l disorder of Eustachi an tubes 53505439584 32862 Active 2015 Other specifie d disorder s of Eustachi an tube, bilatera l; Note: Date Diagnose d: 6 5:54 PM (H69.83) Not Available [facility] 4 02:14:32 Hypertro phy of nasal turbinat es 61620141 Active 2018 Hypertro phy of nasal turbinat es; Note: Date Diagnose d: 02/28/20 19 1:49 PM (J34.3) Not Available [facility] 4 02:14:22 Mixed conducti ve and sensorin eural hearing loss of right ear 00141510091 105 Active 2018 Mixed conducti ve and sensorin eural hearing loss, unilater al, right ear with restrict ed hearing on the contrala teral side; Note: Date Diagnose d: 02/28/20 19 1:32 PM (H90.A31 ) Not Available [facility] 4 02:14:50 Recurren t acute serous otitis media of right middle ear 36065559873 80776 Active 2018 Acute serous otitis media, recurren t, right ear; Note: Date Diagnose d: 02/28/20 19 3:44 PM (H65.04) Not Available [facility] 4 02:14:15 Nasal congesti on 57980712 Active 2018 Nasal congesti on; Note: Date Diagnose d: 02/28/20 1:49 PM (R09.81) Not Available [facility] 4 02:13:49 Hypertro phy of adenoids 165750239 Completed 201812/14/2023 Hypertro phy of adenoids ; Note: Date Diagnose d: 02/28/20 19 2:06 PM (J35.2) Not Available [facility] 4 02:12:59 Allergic rhinitis 63559990 Active 2018 Other allergic rhinitis ; Note: Date Diagnose d: 02/28/20 1:49 PM (J30.89) Not Available [facility] 4 02:13:32 Chronic rhinitis 23933965 Active 2023 ZA EMMANUEL MD [address] [place] [address], [place], [address] , [facility] - [facility] 4 15:49:47 Cigarett e smoker 37155090 Active 2023 ZA EMMANUEL MD [address] [place] [address], [place], [address] , [facility] - [facility] 4 15:51:33 Problem Notes None recorded. [...] sustained -release 04/30 completed Medicati on ID: [id number] D uration Value: 30 Brand Name: bupropio [...] mg tablet 2015 active Medicati on ID: [id number] D uration Value: 30 Brand Name: amlodipi [...] a day 04/30 completed Medicati on ID: [id number] D uration Value: 7 Prescri bed By [...] topical cream 04/30 completed Medicati on ID: [id number] D uration Value: 7 Brand Name: econazol [...] e 50 mcg/actua tion nasal spray,[facility] pension [place] 2 sprays every day by intranas al route. active Not Available Not Available No t Available TobraDex 0.3 %-0.1 % eye drops,brooke pension 02/27 completed Medicati on ID: [id number] P cynthia d By Name: TRACEE Shannon [...] SNOMED-CT Code Diagnosis ICD10 Code Diagnosis Note [id number] ZA EMMANUEL MD [facility] [address] [place] [address] 04/30/2024 14:55:03 04/30/2024 15:53:53 Chronic rhinitis [id number] J31.0 Patient has chronic rhinitis which is [...] remedy for her chronic rhinitis. Cigarette smoker 4976784 7 F17.210 Nasal congestion 1644701 0 R09.81 Mixed cond uctive and sensorineural hearing loss, bilateral 438386921 H90.6 Patient will continue to follow-up at [facility] audiology for hearing aid maintenanc e. Bilateral disorder of Eustachian tubes [id number] 971332 H69.83 Health Concerns Section Related Observation LastModified by Organization Detai ls LastModified Time None Recorded Concern Status LastModified by Organization Details LastModified Time None Recorded Advance Directives Directive None Recorded Payers Encounter Date Sequence Insurance Name Policy Number Policy Galeas Covered Member ID Galeas Member ID Guarantor Name 04/30/2024 1 [facility] [employer] - DIRECT - HYDABURG ZERO (HMO) [id number] Freda Avendano [id number] 1 Freda Avendano Notes Date Note Type [...] residual conductive hearing loss. ZA EMMANUEL MD [address] [place] [address], [place], [address], [facility] - [facility] 04/30/2024 15:55:18 OBGyn Episode No OBEpisode recorded.
== END 2024-08-15 08:47 | disposition home or self-care (01) ==
LOC: HO.US 08:46
PROVIDERS: Visit Provider Surgery
DX: E66.01 Morbid (severe) obesity due to excess calories (principal); I10 Essential (primary) hypertension; G47.33 Obstructive sleep apnea (adult) (pediatric)
CPT/HCPCS: 76700; 76981

== ENCOUNTER → 2024-08-15 08:47 | Outpatient (BNV) | payer OTHER, SELFPAY | PROVIDERS: Visit Provider Radiology Diagnostic Radiology | DX: R16.0 Hepatomegaly, not elsewhere classified (principal); K76.0 Fatty (change of) liver, not elsewhere classified | CPT/HCPCS: 76700; 76981 ==

== ENCOUNTER → 2024-08-19 12:20 | Outpatient (BNVA) | payer OTHER, SELFPAY | PROVIDERS: Visit Provider Counselor Mental Health ==

== ENCOUNTER → 2024-08-19 12:20 | Outpatient (AMB) | payer OTHER, SELFPAY ==
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
== END ==
LOC: HO.HBST 12:20
PROVIDERS: Visit Provider Counselor Mental Health
DX: F33.1 Major depressive disorder, recurrent, moderate (principal)
CPT/HCPCS: 90791

== ENCOUNTER 2024-09-08 09:28 | Outpatient (AMB) | payer OTHER, SELFPAY ==
[2024-09-08 09:36] VITALS: BP 130/80; PULSE 91; TEMP 36.3; O2SAT 97; BMI 64.9
--- NOTE | 2024-09-08 09:36 | A.OFFPC_ITS ---
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 Required: No Accompanied by: self Allergies No Known Allergies Allergy (Verified 09/08/24 10:15) Medication List - Last Reconciled 09/08/24 by Niranjan Mandujano MD aspirin 81 mg PO QAM bupropion HCl XL 300 mg PO DAILY cholecalciferol (vitamin D3) 125 mcg PO DAILY fluticasone furoate-vilanterol 100-25 mcg/dose (Breo Ellipta) 1 ea PO DAILY fluticasone furoate-vilanterol 100-25 mcg/dose (Breo Ellipta) 1 inh inhalation DAILY hydrochlorothiazide 12.5 mg PO DAILY tirzepatide (weight loss) (Zepbound) 5 mg (0.5 mL) subcut QWEEK varenicline tartrate 1 mg PO BID Tobacco use date assessed: 09/08/24 Dental Screening Dental Screen Date: 09/08/24 Did you have a dental visit in the last 12 months?: Yes Did you have a dental problem in the last 6 months where you did not have access to dental care?: No HPI dental surgery, paperwork needed from surgeon HPI Details 54-year-old female presents to the offic e requesting a preop clearance. Procedure is scheduled under general anesthesia for multiple teeth extraction. Patient takes a GLP 1 receptor agonist for weight loss. PFSH Medical History DJD (degenerative joint disease) Morbid obesity Depression Hx of sleep apnea Extreme obesity Ectopic Hypertension Surgical History Hx of myringotomy Hx of oral surgery Hx of adenoidectomy History of hernia surgery Family History Mother History of breast cancer Diabetes Obesity Lung cancer Son No problems noted. Daughter No problems noted. Social History Housing: Apartment Alcohol intake: current Alcohol intake frequency: holidays/special occasions only Alcohol type: beer and wine Patient Tobacco Use Status: Former Tobacco user Tobacco use type: Cigarette Cigarettes Per Day: 3 Years Smoked: 40, recently began decreasing intake e-Cigarette/Vaping Use: Former Use service: No Current occupational status: unemployed Cognitive needs: No Hearing needs: Yes (bilateral hearing aids) Vision needs: Yes (reading glasses) Female Reproductive History Menstrual Age of Menarche: 11 Questionnaire PHQ-9 Over the last 2 weeks, how often have you been bothered by any of the following problems? 1. Little interest or pleasure in doing things: not at all 2. Feeling down, depressed, or hopeless: not at all 3. Trouble falling or staying asleep, or sleeping too much: not at all 4. Feeling tired or having little energy: not at all 5. Poor appetite or overeating: not at all 6. Feeling bad about yourself - or that you are a failure or have let yourself or your family down: not at all 7. Trouble concentrating on things, such as reading the newspaper or watching television: not at all 8. Moving or speaking so slowly that other people could have noticed. Or the opposite - being so fidgety or restless that you have been moving around a lot more than usual: not at all 9. Thoughts that you would be better off or of hurting yourself in some way: not at all Total score: 0 Depression Screening Interpretation: Negative Depression Screening Done: Yes Source: Developed by Drs. Jorgito Mendiola, Janett Clark, Toni Sawant and colleagues, with an educational ric from [employer]. Thrive Questionnaire Date Thrive assessed: 09/08/24 I am a: Patient Within the past 12 months, did the food you bought not last and you didn't have the money to get more?: Never true Within the past 12 months, did you worry whether your food would run out before you got money to buy more?: Never true Do you have trouble paying for medicines?: No Do you have trouble getting transportation to medical appointments?: No Do you have trouble paying your heating and electricity bill?: No Do you have trouble taking care of your child, family member or friend?: No Do you have trouble with day-to-day activities such as bathing, preparing meals, shopping, managing finances, etc.?: No Are you currently unemployed and looking for a job?: No Are you interested in more education?: No Currently or been in a relationship where the following occur: No concerns reported THRIVE Score: 0 AUDIT C Alcohol Use Questionnaire (AUDIT-C) 1. How often do you have a drink containing alcohol?: Never 3. How often do you have six or more drinks on one occasion?: Never Total Score: 0 MIHAI-7 AMB Questionnaire MIHAI-7 Date MIHIA - 7 assessed: 09/08/24 Feeling nervous, anxious, or on edge: 0 = Not at all Not being able to stop or control worryin = Not at all Worrying too much about different things: 0 = Not at all Trouble relaxin = Not at all Being so restless that it is hard to sit still: 0 = Not at all Becoming easily annoyed or irritable: 0 = Not at all Feeling afraid as if something awful might happen: 0 = Not at all Total MIHAI-7 score (0-4 normal; 5-9 mild; 10-14 moderate; 15-21 severe): 0 Source: Developed by Drs. Jorgito Mendiola, Janett Clark, Toni Sawant and colleagues, with an educational ric from [employer]. Physical exam (Primary Care) Vital Signs: Last Vital Signs Temp 97.4 F 09/08/24 09:36 Pulse 91 09/08/24 09:36 BP 130/80 09/08/24 09:36 Pulse Ox 97 09/08/24 09:36 Oxygen Delivery Method Room Air 09/08/24 09:36 Care Plan Goal for BP management: Blood pressure is in range. BMI result Body Mass Index 64.9 BMI Assessment/Plan discussion: High (1 lb per week weight loss suggested.) BMI High, discussed plan: lifestyle, weight reduction and dietary Tobacco/Smoking Status: Tobacco use Status Tobacco use date assessed 09/08/24 09/08/24 09:38 Patient Tobacco Use Status Former Tobacco user 09/08/24 09:52 Tobacco use type Cigarette 09/08/24 09:38 e-Cigarette/Vaping Use Former Use 09/08/24 09:52 PHQ-9: PHQ-9 Score PHQ-9: Total score 0 09/08/24 09:38 Depression Screening Interpretation: Negative Thrive Assessment: Date of Thrive Assessment Date Thrive assessed 09/08/24 09/08/24 09:38 Currently or been in a relationship where the following occur: No concerns reported Const General: cooperative and healthy appearing Nutritional Appearance: well nourished Orientation/consciousness: patient oriented x3 Limitations: no limitations HENMT Head: Yes normal to inspection Eyes General: appearance normal, both eyes and all related structures Neck Neck: Yes normal visual inspection Chest Chest palpation & inspection: normal palpation of entire chest wall Resp Effort & Inspection: normal respiratory effort Neuro General: patient oriented x3 Coding Level of Care Code New Pt Level 4 (04331) Complex EM visit Add On G2211 Diagnoses Morbid exogenous obesity E66.01 HTN (hypertension) with goal to be determined I10 Preoperative clearance Z01.818 Assessment & Plan Assessment & Plan (1) Morbid exogenous obesity: Code(s): E66.01 - Morbid (severe) obesity due to excess calories Category: Medical Plan: Patient was advised to stop the GLP 1 agonist 1 week prior to the day of surgery. To restart the medication after the procedure. (2) HTN (hypertension) with goal to be determined: Code(s): I10 - Essential (primary) hypertension Category: Medical Plan: Blood pressure is in range. Continue medications at same dosage. To restart medications as soon as possible after procedure. (3) Preoperative clearance: Code(s): Z01.818 - Encounter for other preprocedural examination Plan: Blood work and EKG reviewed. Patient is cleared for surgery. To hold the GLP 1 agonist 1 week prior to the procedure.
--- OUTSIDE RECORDS SUMMARY | 2024-09-08 10:32 | XMS_ITS | Data Portability ---
Author Organization [place] [facility], Allergy Address [address] [address] Care Team Providers Care Hair Dresser Name Role Phone MIKAL LACY Primary Care Provider Assessment No assessment recorded. Plan of Treatment Reminders Order Date Submit Date Provider Last Modified By Organization Details Last Modified Time Details Appointments None recorded. Lab None recorded. Referral None recorded. Procedures None recorded. Surgeries None recorded. Imaging None recorded. Medication Orders Allergy Relief (fluticas one) 50 mcg/actua tion nasal spray,[employer] pension 024 024 [facility] [employer] [id number], [address], [place], [phone], 4 15:51:23 Patient TargetsNo targets recorded. Patient InstructionsNo instructions recorded. Reason for Referral None Reported. Problems Name Problem SNOMED Code Status Onset Date Resolution Date Notes Provider Name and Address Organization Details Recorded Time Otorrhea of left ear 59579967301 49686 Completed 201512/14/2023 Otorrhea , left ear; Note: Date Diagnose d: 6 3:28 PM (H92.12) Not Available [facility] 4 02:13:24 Chronic mucoid otitis media of right middle ear 73514647570 32725 Active 2018 Chronic mucoid otitis media, right ear; Note: Date Diagnose d: 02/28/20 19 1:48 PM (H65.31) Not Available [facility] 4 02:14:43 Mixed conducti ve and sensorin eural hearing loss, bilatera l 553753338 Active 2015 Mixed conducti ve and sensorin eural hearing loss, bilatera l; Note: Date Diagnose d: 6 5:54 PM (H90.6) Not Available [facility] 4 02:13:36 Deviated nasal septum 521803475 Active 2018 Deviated nasal septum; Note: Date Diagnose d: 02/28/20 19 3:44 PM (J34.2) Not Available [facility] 4 02:13:39 Bilatera l chronic serous otitis 138091046 Active 2015 Chronic serous otitis media, bilatera l; Note: Date Diagnose d: 6 5:54 PM (H65.23) Not Available [facility] 4 02:14:22 Sensorin eural hearing loss in left ear 17467237203 109 Active 2018 Sensorin eural hearing loss, unilater al, left ear, with restrict ed hearing on the contrala teral side; Note: Date Diagnose d: 02/28/20 19 1:32 PM (H90.A22 ) Not Available [facility] 4 02:14:19 Sleep apnea 66936327 Active 2015 Sleep apnea, unspecif ied; Note: Date Diagnose d: 6 4:46 PM (G47.30) Not Available [facility] 4 02:12:44 Bilatera l disorder of Eustachi an tubes 60111326746 43296 Active 2015 Other specifie d disorder s of Eustachi an tube, bilatera l; Note: Date Diagnose d: 6 5:54 PM (H69.83) Not Available [facility] 4 02:14:32 Hypertro phy of nasal turbinat es 97302823 Active 2018 Hypertro phy of nasal turbinat es; Note: Date Diagnose d: 02/28/20 19 1:49 PM (J34.3) Not Available [facility] 4 02:14:22 Mixed conducti ve and sensorin eural hearing loss of right ear 61026547939 105 Active 2018 Mixed conducti ve and sensorin eural hearing loss, unilater al, right ear with restrict ed hearing on the contrala teral side; Note: Date Diagnose d: 02/28/20 19 1:32 PM (H90.A31 ) Not Available [facility] 4 02:14:50 Recurren t acute serous otitis media of right middle ear 40443242198 07186 Active 2018 Acute serous otitis media, recurren t, right ear; Note: Date Diagnose d: 02/28/20 19 3:44 PM (H65.04) Not Available [facility] 4 02:14:15 Nasal congesti on 90274074 Active 2018 Nasal congesti on; Note: Date Diagnose d: 02/28/20 1:49 PM (R09.81) Not Available [facility] 4 02:13:49 Hypertro phy of adenoids 293174894 Completed 201812/14/2023 Hypertro phy of adenoids ; Note: Date Diagnose d: 02/28/20 19 2:06 PM (J35.2) Not Available [facility] 4 02:12:59 Allergic rhinitis 86613680 Active 2018 Other allergic rhinitis ; Note: Date Diagnose d: 02/28/20 1:49 PM (J30.89) Not Available [facility] 4 02:13:32 Chronic rhinitis 29801058 Active 2023 ZA EMMANUEL MD [address] [place] [address], [place], [address] , [facility] - [facility] 4 15:49:47 Cigarett e smoker 85146051 Active 2023 ZA EMMANUEL MD [address] [place] [address], [place], [address] , [facility] - [facility] 4 15:51:33 Problem Notes None recorded. [...] sustained -release 04/30 completed Medicati on ID: [id number] D uration Value: 30 Brand Name: bupropio [...] mg tablet 2015 active Medicati on ID: [id number] D uration Value: 30 Brand Name: amlodipi [...] a day 04/30 completed Medicati on ID: [id number] D uration Value: 7 Prescri bed By [...] topical cream 04/30 completed Medicati on ID: [id number] D uration Value: 7 Brand Name: econazol [...] e 50 mcg/actua tion nasal spray,[employer] pension Newborn 2 sprays every day by intranas al route. active Not Available Not Available No t Available TobraDex 0.3 %-0.1 % eye drops,[employer] pension 02/27 completed Medicati on ID: [id number] P cynthia d By Name: TRACEE Shannon [...] SNOMED-CT Code Diagnosis ICD10 Code Diagnosis Note [id number] ZA EMMANUEL MD [facility] [address] [place] [address] 04/30/2024 14:55:03 04/30/2024 15:53:53 Chronic rhinitis 04242309 J31.0 Patient has chronic rhinitis which is [...] remedy for her chronic rhinitis. Cigarette smoker [id number] 7 F17.210 Nasal congestion 4150438 0 R09.81 Mixed cond uctive and sensorineural hearing loss, bilateral 659897956 H90.6 Patient will continue to follow-up at [facility] audiology for hearing aid maintenanc e. Bilateral disorder of Eustachian tubes [id number] 483181 H69.83 Health Concerns Section Related Observation LastModified by Organization Detai ls LastModified Time None Recorded Concern Status LastModified by Organization Details LastModified Time None Recorded Advance Directives Directive None Recorded Payers Encounter Date Sequence Insurance Name Policy Number Policy Galeas Covered Member ID Galeas Member ID Guarantor Name 04/30/2024 1 [facility] [employer] - [employer] ZERO (HMO) [id number] Freda Avendano [id number] 1 Freda Avendano Notes Date Note Type [...] residual conductive hearing loss. ZA EMMANUEL MD [address] [place] [address], [place], [address], [facility] - [facility] 04/30/2024 15:55:18 OBGyn Episode No OBEpisode recorded.
== END 2024-09-08 10:14 | disposition home or self-care (01) ==
LOC: HO.HMCHD 09:29
PROVIDERS: Visit Provider Internal Medicine
DX: E66.01 Morbid (severe) obesity due to excess calories (principal); I10 Essential (primary) hypertension; Z01.818 Encounter for other preprocedural examination

== ENCOUNTER → 2024-09-08 09:28 | Outpatient (BNVA) | payer OTHER, SELFPAY | PROVIDERS: Visit Provider Internal Medicine | DX: Z01.818 Encounter for other preprocedural examination (principal); E66.01 Morbid (severe) obesity due to excess calories; Z68.44 Body mass index [BMI] 60.0-69.9, adult; I10 Essential (primary) hypertension | CPT/HCPCS: 99202 ==

== ENCOUNTER 2024-09-08 12:22 | Outpatient (AMB) | payer OTHER, SELFPAY ==
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
== END 2024-09-08 13:13 | disposition home or self-care (01) ==
LOC: HO.HBST 12:22
PROVIDERS: PCP Internal Medicine; Visit Provider Counselor Mental Health
DX: F33.1 Major depressive disorder, recurrent, moderate (principal); Z72.4 Inappropriate diet and eating habits; Z71.89 Other specified counseling
CPT/HCPCS: 90837

== ENCOUNTER 2024-09-15 11:07 | Outpatient (REF) | payer OTHER, SELFPAY ==
--- NOTE | 2024-09-15 11:15 | ECG_ITS ---
Test Reason : PREOP Blood Pressure : */* mmHG Vent. Rate : 90 BPM Atrial Rate : 90 BPM P-R Int : 148 ms QRS Dur : 90 ms QT Int : 352 ms P-R-T Axes : 56 -37 56 degrees QTcB Int : 430 ms Normal sinus rhythm Left axis deviation Abnormal ECG When compared with ECG of 25-Jul-2024 09:01, No significant change was found Referred By: Niranjan Mandujano Electronically Signed By: AISHA AVILES
--- OUTSIDE RECORDS SUMMARY | 2024-09-15 12:53 | XMS_ITS | Data Portability ---
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 Plan of Treatment Reminders Order Date Submit Date Provider Last Modified By Organization Details Last Modified Time Details Appointments None recorded. Lab None recorded. Referral None recorded. Procedures None recorded. Surgeries None recorded. Imaging None recorded. Medication Orders Allergy Relief (fluticas one) 50 mcg/actua tion nasal spray,brooke pension 024 024 [facility] #[id number], [address] [place], [place], [id number], 4 15:51:23 Patient TargetsNo targets recorded. Patient InstructionsNo instructions recorded. Reason for Referral None Reported. Problems Name Problem SNOMED Code Status Onset Date Resolution Date Notes Provider Name and Address Organization Details Recorded Time Otorrhea of left ear [id number] 68317 Completed 201512/14/2023 Otorrhea , left ear; Note: Date Diagnose d: 6 3:28 PM (H92.12) Not Available [facility] 4 02:13:24 Chronic mucoid otitis media of right middle ear [id number] 87273 Active 2018 Chronic mucoid otitis media, right ear; Note: Date Diagnose d: 02/28/20 19 1:48 PM (H65.31) Not Available [facility] 4 02:14:43 Mixed conducti ve and sensorin eural hearing loss, bilatera l 538082809 Active 2015 Mixed conducti ve and sensorin eural hearing loss, bilatera l; Note: Date Diagnose d: 6 5:54 PM (H90.6) Not Available [facility] 4 02:13:36 Deviated nasal septum 522226662 Active 2018 Deviated nasal septum; Note: Date Diagnose d: 02/28/20 19 3:44 PM (J34.2) Not Available [facility] 4 02:13:39 Bilatera l chronic serous otitis 083834946 Active 2015 Chronic serous otitis media, bilatera l; Note: Date Diagnose d: 6 5:54 PM (H65.23) Not Available [facility] 4 02:14:22 Sensorin eural hearing loss in left ear 20265834745 109 Active 2018 Sensorin eural hearing loss, unilater al, left ear, with restrict ed hearing on the contrala teral side; Note: Date Diagnose d: 02/28/20 19 1:32 PM (H90.A22 ) Not Available [facility] 4 02:14:19 Sleep apnea 71910732 Active 2015 Sleep apnea, unspecif ied; Note: Date Diagnose d: 6 4:46 PM (G47.30) Not Available [facility] 4 02:12:44 Bilatera l disorder of Eustachi an tubes 07602237406 00478 Active 2015 Other specifie d disorder s of Eustachi an tube, bilatera l; Note: Date Diagnose d: 6 5:54 PM (H69.83) Not Available [facility] 4 02:14:32 Hypertro phy of nasal turbinat es 39388145 Active 2018 Hypertro phy of nasal turbinat es; Note: Date Diagnose d: 02/28/20 19 1:49 PM (J34.3) Not Available [facility] 4 02:14:22 Mixed conducti ve and sensorin eural hearing loss of right ear 55055315504 105 Active 2018 Mixed conducti ve and sensorin eural hearing loss, unilater al, right ear with restrict ed hearing on the contrala teral side; Note: Date Diagnose d: 02/28/20 19 1:32 PM (H90.A31 ) Not Available [facility] 4 02:14:50 Recurren t acute serous otitis media of right middle ear 23309830583 20393 Active 2018 Acute serous otitis media, recurren t, right ear; Note: Date Diagnose d: 02/28/20 19 3:44 PM (H65.04) Not Available [facility] 4 02:14:15 Nasal congesti on 41653119 Active 2018 Nasal congesti on; Note: Date Diagnose d: 02/28/20 1:49 PM (R09.81) Not Available [facility] 4 02:13:49 Hypertro phy of adenoids 247469514 Completed 201812/14/2023 Hypertro phy of adenoids ; Note: Date Diagnose d: 02/28/20 19 2:06 PM (J35.2) Not Available [facility] 4 02:12:59 Allergic rhinitis 88372981 Active 2018 Other allergic rhinitis ; Note: Date Diagnose d: 02/28/20 1:49 PM (J30.89) Not Available [facility] 4 02:13:32 Chronic rhinitis 36030089 Active 2023 ZA EMMANUEL MD [address] [place] [address], [place], [address] , [facility] - [facility] 4 15:49:47 Cigarett e smoker 23425546 Active 2023 ZA EMMANUEL MD [address] [place] [address], [place], [address] , [facility] - [facility] 4 15:51:33 Problem Notes None [...] sustained -release 04/30 completed Medicati on ID: [id number] D uration Value: 30 Brand Name: bupropio [...] mg tablet 2015 active Medicati on ID: [id number] D uration Value: 30 Brand Name: amlodipi [...] a day 04/30 completed Medicati on ID: [id number] D uration Value: 7 Prescri bed By [...] topical cream 04/30 completed Medicati on ID: [id number] D uration Value: 7 Brand Name: econazol [...] e 50 mcg/actua tion nasal spray,brooke pension [place] 2 sprays every day by intranas al route. active Not Available Not Available No t Available TobraDex 0.3 %-0.1 % eye drops,brooke pension 02/27 completed Medicati on ID: [id number] P cynthia d By Name: TRACEE Shannon [...] SNOMED-CT Code Diagnosis ICD10 Code Diagnosis Note [id number] ZA EMMANUEL MD [facility] [address] [place] [address] 04/30/2024 14:55:03 04/30/2024 15:53:53 Chronic rhinitis 98060699 J31.0 Patient has chronic rhinitis which is [...] remedy for her chronic rhinitis. Cigarette smoker 5370066 7 F17.210 Nasal congestion 2895380 0 R09.81 Mixed cond uctive and sensorineural hearing loss, bilateral 004682678 H90.6 Patient will continue to follow-up at [facility] audiology for hearing aid maintenanc e. Bilateral disorder of Eustachian tubes [id number] 552746 H69.83 Health Concerns Section Related Observation LastModified by Organization Detai ls LastModified Time None Recorded Concern Status LastModified by Organization Details LastModified Time None Recorded Advance Directives Directive None Recorded Payers Encounter Date Sequence Insurance Name Policy Number Policy Galeas Covered Member ID Galeas Member ID Guarantor Name 04/30/2024 1 [facility] [employer] - DIRECT - [place] (HMO) [id number] Freda Avendano [id number] 1 Freda Avendano Notes Date Note Type [...] conductive hearing loss. ZA EMMANUEL MD [address] [place] [address], [place], [address], [facility] - [facility] 04/30/2024 15:55:18 OBGyn Episode No OBEpisode recorded.
== END 2024-09-15 11:08 | disposition home or self-care (01) ==
LOC: HO.LAB 11:07
PROVIDERS: PCP Internal Medicine; Visit Provider Internal Medicine
DX: Z01.818 Encounter for other preprocedural examination (principal)
CPT/HCPCS: 93005

== ENCOUNTER → 2024-09-15 11:15 | Outpatient (BNV) | payer OTHER, SELFPAY | PROVIDERS: PCP Internal Medicine; Visit Provider Internal Medicine | DX: R94.31 Abnormal electrocardiogram [ECG] [EKG] (principal); Z01.810 Encounter for preprocedural cardiovascular examination | CPT/HCPCS: 93010 ==

== ENCOUNTER 2024-10-01 08:52 | Outpatient (REF) | payer OTHER, SELFPAY ==
--- NOTE | ~2024-10-01 | FL_ITS ---
EXAMINATION: XR FLUOROSCOPY UPPER GI SERIES CLINICAL INFORMATION: Morbid obesity due to excess calories: Preop UGI. COMPARISON: None TECHNIQUE: Fluoroscopic air contrast upper GI examination was performed utilizing standard techniques with thin and thick barium and effervescent granules. Numerous spot images were obtained. Several fluoroscopic image hold cine sequences were also obtained. FINDINGS: UPPER GI SERIES: Lateral cine images of the oropharynx and hypopharynx demonstrate normal swallow mechanism with normal epiglottic inversion and soft palate elevation. No laryngeal penetration, glottic or subglottic aspiration identified. No nasopharyngeal reflux present. Hypopharyngeal structures appear normal without evidence of mass or diverticulum. There was no significant cricopharyngeal achalasia. Dual and single contrast images of the esophagus demonstrate normal caliber, contour, and mucosal pattern. No evidence of stricture, mass, or ulcerations identified. Esophageal peristalsis was mildly disordered. Tiny type I hiatus hernia present. No significant gastroesophageal reflux was seen during the course of the examination and on reflux views. Dual contrast and single contrast images of the stomach demonstrated normal contour and mucosal pattern without evidence of mass, ulceration, or other abnormality. Contrast freely passed into the gastric antrum and duodenal bulb without delay. Single and air-contrast images of the duodenal bulb demonstrate no abnormality. The duodenal sweep has a normal appearance, course, and mucosal fold appearance. There are cholecystectomy clips noted. FLUOROSCOPY TIME: 3 minutes 6 seconds Number of Spot Images:10 Number of cines obtained: 9 DOSE AREA PRODUCT: 5344 uGy-m2 (microgray-meter squared) FL/FL upper GI w air IMPRESSION: 1. Mildly disordered esophageal peristalsis. 2. Tiny type 1 hiatus hernia. 3. The remainder of the exam is normal. Electronically signed by: Shawn Orlando MD 10/01/2024 10:18 AM EDT
--- OUTSIDE RECORDS SUMMARY | 2024-10-01 10:07 | XMS_ITS | Data Portability ---
Author Organization [place] - [facility], Allergy Address [address] [address] Care Team Providers Care Pantograph Engraver Name Role Phone MIKAL LACY Primary Care Provider [phone] Assessment No assessment recorded. Plan of Treatment Reminders Order Date Submit Date Provider Last Modified By Organization Details Last Modified Time Details Appointments None recorded. Lab None recorded. Referral None recorded. Procedures None recorded. Surgeries None recorded. Imaging None recorded. Medication Orders Allergy Relief (fluticas one) 50 mcg/actua tion nasal spray,brooke pension 024 024 [facility] #[id number], [address] [place], [place], [phone], 4 15:51:23 Patient TargetsNo targets recorded. Patient InstructionsNo instructions recorded. Reason for Referral None Reported. Problems Name Problem SNOMED Code Status Onset Date Resolution Date Notes Provider Name and Address Organization Details Recorded Time Otorrhea of left ear [id number] 42577 Completed 201512/14/2023 Otorrhea , left ear; Note: Date Diagnose d: 6 3:28 PM (H92.12) Not Available [facility] 4 02:13:24 Chronic mucoid otitis media of right middle ear 80285695104 91012 Active 2018 Chronic mucoid otitis media, right ear; Note: Date Diagnose d: 02/28/20 19 1:48 PM (H65.31) Not Available [facility] 4 02:14:43 Mixed conducti ve and sensorin eural hearing loss, bilatera l 188124549 Active 2015 Mixed conducti ve and sensorin eural hearing loss, bilatera l; Note: Date Diagnose d: 6 5:54 PM (H90.6) Not Available [facility] 4 02:13:36 Deviated nasal septum 540419857 Active 2018 Deviated nasal septum; Note: Date Diagnose d: 02/28/20 19 3:44 PM (J34.2) Not Available [facility] 4 02:13:39 Bilatera l chronic serous otitis 051510428 Active 2015 Chronic serous otitis media, bilatera l; Note: Date Diagnose d: 6 5:54 PM (H65.23) Not Available [facility] 4 02:14:22 Sensorin eural hearing loss in left ear 16807836648 109 Active 2018 Sensorin eural hearing loss, unilater al, left ear, with restrict ed hearing on the contrala teral side; Note: Date Diagnose d: 02/28/20 19 1:32 PM (H90.A22 ) Not Available [facility] 4 02:14:19 Sleep apnea 40593946 Active 2015 Sleep apnea, unspecif ied; Note: Date Diagnose d: 6 4:46 PM (G47.30) Not Available [facility] 4 02:12:44 Bilatera l disorder of Eustachi an tubes 81654235732 67901 Active 2015 Other specifie d disorder s of Eustachi an tube, bilatera l; Note: Date Diagnose d: 6 5:54 PM (H69.83) Not Available [facility] 4 02:14:32 Hypertro phy of nasal turbinat es 39156393 Active 2018 Hypertro phy of nasal turbinat es; Note: Date Diagnose d: 02/28/20 19 1:49 PM (J34.3) Not Available [facility] 4 02:14:22 Mixed conducti ve and sensorin eural hearing loss of right ear 47698959172 105 Active 2018 Mixed conducti ve and sensorin eural hearing loss, unilater al, right ear with restrict ed hearing on the contrala teral side; Note: Date Diagnose d: 02/28/20 19 1:32 PM (H90.A31 ) Not Available [facility] 4 02:14:50 Recurren t acute serous otitis media of right middle ear 28501739495 48960 Active 2018 Acute serous otitis media, recurren t, right ear; Note: Date Diagnose d: 02/28/20 19 3:44 PM (H65.04) Not Available [facility] 4 02:14:15 Nasal congesti on 97651439 Active 2018 Nasal congesti on; Note: Date Diagnose d: 02/28/20 1:49 PM (R09.81) Not Available [facility] 4 02:13:49 Hypertro phy of adenoids 192062338 Completed 201812/14/2023 Hypertro phy of adenoids ; Note: Date Diagnose d: 02/28/20 19 2:06 PM (J35.2) Not Available [facility] 4 02:12:59 Allergic rhinitis 27624949 Active 2018 Other allergic rhinitis ; Note: Date Diagnose d: 02/28/20 1:49 PM (J30.89) Not Available [facility] 4 02:13:32 Chronic rhinitis 11587261 Active 2023 ZA EMMANUEL MD [address] [place] [address], [place], [address] , [facility] - [facility] 4 15:49:47 Cigarett e smoker 64821439 Active 2023 ZA EMMANUEL MD [address] [place] [address], [place], [address] , [facility] - [facility] 4 15:51:33 Problem Notes None recorded. [...] sustained -release 04/30 completed Medicati on ID: [id number] D uration Value: 30 Brand Name: bupropio [...] mg tablet 2015 active Medicati on ID: [id number] D uration Value: 30 Brand Name: amlodipi [...] a day 04/30 completed Medicati on ID: [id number] D uration Value: 7 Prescri bed By [...] topical cream 04/30 completed Medicati on ID: [id number] D uration Value: 7 Brand Name: econazol [...] e 50 mcg/actua tion nasal spray,brooke pension [place] 2 sprays every day by intranas al route. active Not Available Not Available No t Available TobraDex 0.3 %-0.1 % eye drops,brooke pension 02/27 completed Medicati on ID: [id number] P cynthia d By Name: TRACEE Shannon [...] SNOMED-CT Code Diagnosis ICD10 Code Diagnosis Note [id number] ZA EMMANUEL MD [facility] [address] [address] 04/30/2024 14:55:03 04/30/2024 15:53:53 Chronic rhinitis 97752056 J31.0 Patient has chronic rhinitis which is [...] remedy for her chronic rhinitis. Cigarette smoker 0310814 7 F17.210 Nasal congestion 5017583 0 R09.81 Mixed cond uctive and sensorineural hearing loss, bilateral 378743177 H90.6 Patient will continue to follow-up at [facility] audiology for hearing aid maintenanc e. Bilateral disorder of Eustachian tubes 2284557407 543990 H69.83 Health Concerns Section Related Observation LastModified by Organization Detai ls LastModified Time None Recorded Concern Status LastModified by Organization Details LastModified Time None Recorded Advance Directives Directive None Recorded Payers Insurance Date Sequence Insurance Name Policy Number Policy Galeas Covered Member ID Galeas Member ID Guarantor Name 04/30/2024 1 [facility] [employer] [facility] [id number] Freda Avendano [id number] 1 Freda Avendano 04/30/2024 1 [facility] [employer] - DIRECT - [place] (HMO) [id number] Freda Avendano [id number] 1 Freda Avendano Notes Date Note Type Note Provider Name and Address Organization Details Recorded Time 04/30/2024 text/html 52-year-old fema timbo with history of chronic eustachian tube dysfunction, [...] residual conductive hearing loss. ZA EMMANUEL MD [address] [place] [address], [place], [address], [facility] - [facility] 04/30/2024 15:55:18 OBGyn Episode No OBEpisode recorded.
== END 2024-10-01 08:53 | disposition home or self-care (01) ==
LOC: HO.XRAY 08:52
PROVIDERS: Visit Provider Surgery
DX: E66.01 Morbid (severe) obesity due to excess calories (principal); I10 Essential (primary) hypertension; G47.33 Obstructive sleep apnea (adult) (pediatric)
CPT/HCPCS: 74246

== ENCOUNTER → 2024-10-01 08:54 | Outpatient (BNV) | payer OTHER, SELFPAY | PROVIDERS: Visit Provider Radiology Diagnostic Radiology | DX: K22.4 Dyskinesia of esophagus (principal) | CPT/HCPCS: 74246 ==

== ENCOUNTER 2024-10-07 13:02 | Outpatient (AMB) | payer OTHER, SELFPAY ==
--- NOTE | 2024-10-07 12:30 | A.OFFWM_ITS ---
Intake Intake Visit Reasons: TV BH F/U Allergies No Known Allergies Allergy (Verified 09/08/24 10:15) PFSH Medical History DJD (degenerative joint disease) Morbid obesity Depression Hx of sleep apnea Extreme obesity Ectopic Hypertension Surgical History Hx of myringotomy Hx of oral surgery Hx of adenoidectomy History of hernia surgery Family History Mother History of breast cancer Diabetes Obesity Lung cancer Son No problems noted. Daughter No problems noted. Social History Housing: Apartment Alcohol intake: current Alcohol intake frequency: holidays/special occasions only Alcohol type: beer and wine Patient Tobacco Use Status: Former Tobacco user Tobacco use type: Cigarette Cigarettes Per Day: 3 Years Smoked: 40, recently began decreasing intake e-Cigarette/Vaping Use: Former Use service: No Current occupational status: unemployed Cognitive needs: No Hearing needs: Yes (bilateral hearing aids) Vision needs: Yes (reading glasses) Female Reproductive History Menstrual Age of Menarche: 11 Behavioral Health Assessment Weight Management Therapy Therapy Notes Details Subjective: Patient reports overall improvement in mood and functioning; however, she experienced a disruption in her medication regimen and went over a week without taking all prescribed medications due to pharmacy issues. She has since resumed her medications. She continues to feel indecisive about moving forward with weight-loss surgery, expressing internal conflict and uncertainty about the long-term implications. Patient is aware of the program expectations but acknowledges some difficulty emotionally committing to the next step. Objective: Patient presented for a behavioral health follow-up session as part of the surgical weight-loss (SWL) program. Session focused on assessing readiness for surgery, exploring emotional ambivalence, and identifying barriers to full engagement in the program. Therapeutic interventions included: * Cognitive Behavioral Therapy (CBT) strategies to examine unhelpful thoughts contributing to ambivalence (e.g., fear of failure, perfectionism, fear of change). * Explored mindset shifts needed for long-term success with surgery, including flexibility, self-compassion, and ownership of health behaviors. * Motivational interviewing techniques used to validate mixed feelings while helping the patient clarify values, long-term goals, and reasons for considering surgery. * Identified mental and emotional barriers as specific targets for behavior change, and collaboratively reframed these as short-term goals to address in preparation for surgery. * Brief review of coping strategies to manage stress related to medical decisions and program expectations. Assessment/Response: * Mental status: Mood euthymic; affect congruent; insight fair; thought process linear. * Risk reported/identified: None Patient was engaged and able to reflect on her thought patterns, though continued some avoidance around surgical commitment. Food/Weight/Diet Expectations of change Started weight 369Lbs Weight as of 08/18/2024: 360 lbs 09/08/2024: 353 Lbs Target weight post-op: 165- 185 lbs. PT is implementing the following: Current meal plan: combination of shakes, protein bars, and 1 meal (12F/12F) Exercise plan: Stationary bicycle. Been using it daily- twice at day for 15 minutes each time and also going for a walks in the nearby track (does 3 laps). Scale: Yes. Communication with prescriber: Mondays. Assessment & Plan Assessment & Plan (1) Major depressive disorder, recurrent, moderate: Code(s): F33.1 - Major depressive disorder, recurrent, moderate (2) Inappropriate diet or eating habits: Code(s): Z72.4 - Inappropriate diet and eating habits Plan Patient is stable and remains cleared but would benefit from continued support to process ambivalence and strengthen emotional readiness for surgical intervention. F/up in 1 month. Next landy: 11/04/2024 Telehealth Telehealth Telehealth Platform: [employer] Location of provider rendering services: other (Home office. [place], [place]) Location of patient: address on file Patient Identification confirmed using: Name, : Yes Telehealth method: voice only Patient verbally consented to treatment: Yes Patient verbally consented to billing insurance company: Yes Patient informed of any privacy concerns related to visit: Yes Minutes spent on Phone/Video with Pt.: 45 Coding Level of Care Code Established Pt Tele Psytx 45 mins (58511) Patient Type Established Diagnoses Major depressive disorder, recurrent, moderate F33.1 Inappropriate diet or eating habits Z72.4 Time Spent (min) 45
--- OUTSIDE RECORDS SUMMARY | 2024-10-07 13:06 | XMS_ITS | Data Portability ---
Author Organization [place] - [facility], Allergy Address [address] [address] Care Team Providers Care Dray Truck Driver Name Role Phone MIKAL LACY Primary Care Provider [phone] Assessment No assessment recorded. Plan of Treatment Reminders Order Date Submit Date Provider Last Modified By Organization Details Last Modified Time Details Appointments None recorded. Lab None recorded. Referral None recorded. Procedures None recorded. Surgeries None recorded. Imaging None recorded. Medication Orders Allergy Relief (fluticas one) 50 mcg/actua tion nasal spray,brooke pension 024 024 [facility] #[id number], [address] [place], [place], [phone], 4 15:51:23 Patient TargetsNo targets recorded. Patient InstructionsNo instructions recorded. Reason for Referral None Reported. Problems Name Problem SNOMED Code Status Onset Date Resolution Date Notes Provider Name and Address Organization Details Recorded Time Otorrhea of left ear [id number] 45267 Completed 201512/14/2023 Otorrhea , left ear; Note: Date Diagnose d: 6 3:28 PM (H92.12) Not Available [facility] 4 02:13:24 Chronic mucoid otitis media of right middle ear 06910758019 36057 Active 2018 Chronic mucoid otitis media, right ear; Note: Date Diagnose d: 02/28/20 19 1:48 PM (H65.31) Not Available [facility] 4 02:14:43 Mixed conducti ve and sensorin eural hearing loss, bilatera l 768252319 Active 2015 Mixed conducti ve and sensorin eural hearing loss, bilatera l; Note: Date Diagnose d: 6 5:54 PM (H90.6) Not Available [facility] 4 02:13:36 Deviated nasal septum 407368226 Active 2018 Deviated nasal septum; Note: Date Diagnose d: 02/28/20 19 3:44 PM (J34.2) Not Available [facility] 4 02:13:39 Bilatera l chronic serous otitis 586619573 Active 2015 Chronic serous otitis media, bilatera l; Note: Date Diagnose d: 6 5:54 PM (H65.23) Not Available [facility] 4 02:14:22 Sensorin eural hearing loss in left ear 26730694784 109 Active 2018 Sensorin eural hearing loss, unilater al, left ear, with restrict ed hearing on the contrala teral side; Note: Date Diagnose d: 02/28/20 19 1:32 PM (H90.A22 ) Not Available [facility] 4 02:14:19 Sleep apnea 73623283 Active 2015 Sleep apnea, unspecif ied; Note: Date Diagnose d: 6 4:46 PM (G47.30) Not Available [facility] 4 02:12:44 Bilatera l disorder of Eustachi an tubes 07376039495 66406 Active 2015 Other specifie d disorder s of Eustachi an tube, bilatera l; Note: Date Diagnose d: 6 5:54 PM (H69.83) Not Available [facility] 4 02:14:32 Hypertro phy of nasal turbinat es 84949108 Active 2018 Hypertro phy of nasal turbinat es; Note: Date Diagnose d: 02/28/20 19 1:49 PM (J34.3) Not Available [facility] 4 02:14:22 Mixed conducti ve and sensorin eural hearing loss of right ear 27718787626 105 Active 2018 Mixed conducti ve and sensorin eural hearing loss, unilater al, right ear with restrict ed hearing on the contrala teral side; Note: Date Diagnose d: 02/28/20 19 1:32 PM (H90.A31 ) Not Available [facility] 4 02:14:50 Recurren t acute serous otitis media of right middle ear 94671112615 02561 Active 2018 Acute serous otitis media, recurren t, right ear; Note: Date Diagnose d: 02/28/20 19 3:44 PM (H65.04) Not Available [facility] 4 02:14:15 Nasal congesti on 72248274 Active 2018 Nasal congesti on; Note: Date Diagnose d: 02/28/20 1:49 PM (R09.81) Not Available [facility] 4 02:13:49 Hypertro phy of adenoids 031031188 Completed 201812/14/2023 Hypertro phy of adenoids ; Note: Date Diagnose d: 02/28/20 19 2:06 PM (J35.2) Not Available [facility] 4 02:12:59 Allergic rhinitis 22539413 Active 2018 Other allergic rhinitis ; Note: Date Diagnose d: 02/28/20 1:49 PM (J30.89) Not Available [facility] 4 02:13:32 Chronic rhinitis 22865260 Active 2023 ZA EMMANUEL MD [address] [place] [address], [place], [address] , [facility] - [facility] 4 15:49:47 Cigarett e smoker 46756984 Active 2023 ZA EMMANUEL MD [address] [place] [address], [place], [address] , [facility] - [facility] 4 15:51:33 Problem Notes None recorded. [...] sustained -release 04/30 completed Medicati on ID: [id number] D uration Value: 30 Brand Name: bupropio [...] mg tablet 2015 active Medicati on ID: [id number] D uration Value: 30 Brand Name: amlodipi [...] a day 04/30 completed Medicati on ID: [id number] D uration Value: 7 Prescri bed By [...] topical cream 04/30 completed Medicati on ID: [id number] D uration Value: 7 Brand Name: econazol [...] e 50 mcg/actua tion nasal spray,brooke pension [place] 2 sprays every day by intranas al route. active Not Available Not Available No t Available TobraDex 0.3 %-0.1 % eye drops,brooke pension 02/27 completed Medicati on ID: [id number] P cynthia d By Name: TRACEE Shannon [...] SNOMED-CT Code Diagnosis ICD10 Code Diagnosis Note [id number] ZA EMMANUEL MD [facility] [address] [address] 04/30/2024 14:55:03 04/30/2024 15:53:53 Chronic rhinitis 52812852 J31.0 Patient has chronic rhinitis which is [...] remedy for her chronic rhinitis. Cigarette smoker 5424827 7 F17.210 Nasal congestion 9128813 0 R09.81 Mixed cond uctive and sensorineural hearing loss, bilateral 533018617 H90.6 Patient will continue to follow-up at [facility] audiology for hearing aid maintenanc e. Bilateral disorder of Eustachian tubes 3906789989 852055 H69.83 Health Concerns Section Related Observation LastModified by Organization Detai ls LastModified Time None Recorded Concern Status LastModified by Organization Details LastModified Time None Recorded Advance Directives Directive None Recorded Payers Insurance Date Sequence Insurance Name Policy Number Policy Galeas Covered Member ID Galeas Member ID Guarantor Name 04/30/2024 1 [facility] Narrative [facility] [id number] Freda Avendano [id number] 1 Freda Avendano 04/30/2024 1 [facility] [employer] - DIRECT - [place] (HMO) [id number] Freda Avendano [id number] 1 Freda Avendano Notes Date Note Type [...] conductive hearing loss. ZA EMMANUEL MD [address] [place] [address], [place], [address], [facility] - [facility] 04/30/2024 15:55:18 OBGyn Episode No OBEpisode recorded.
== END 2024-10-07 13:23 | disposition home or self-care (01) ==
LOC: HO.HBST 13:02
PROVIDERS: Visit Provider Counselor Mental Health
DX: F33.1 Major depressive disorder, recurrent, moderate (principal); Z72.4 Inappropriate diet and eating habits
CPT/HCPCS: 90834

== ENCOUNTER 2024-11-04 13:07 | Outpatient (AMB) | payer OTHER, SELFPAY ==
--- NOTE | 2024-11-04 12:45 | A.OFFWM_ITS ---
Intake Intake Visit Reasons: TV BH F/U Allergies No Known Allergies Allergy (Verified 09/08/24 10:15) [facility] Medical History (Updated 12/26/24 @ 22:11 by Sanjay Aguillon MD) BMI 50.0-59.9, adult DJD (degenerative joint disease) Morbid obesity Depression Hx of sleep apnea Extreme obesity Ectopic Hypertension Surgical History Hx of myringotomy Hx of oral surgery Hx of adenoidectomy History of hernia surgery Family History Mother History of breast cancer Diabetes Obesity Lung cancer Son No problems noted. Daughter No problems noted. Social History Housing: Apartment Alcohol intake: current Alcohol intake frequency: holidays/special occasions only Alcohol type: beer and wine Patient Tobacco Use Status: Former Tobacco user Tobacco use type: Cigarette Cigarettes Per Day: 3 Years Smoked: 40, recently began decreasing intake e-Cigarette/Vaping Use: Former Use service: No Current occupational status: unemployed Cognitive needs: No Hearing needs: Yes (bilateral hearing aids) Vision needs: Yes (reading glasses) Female Reproductive History Menstrual Age of Menarche: 11 Behavioral Health Assessment Weight Management Therapy Therapy Notes Details Subjective: The patient reports ongoing frustration with recent interactions with her [facility] provider, feeling blamed for her medical challenges. She states she is not yet ready to pursue weight loss surgery at this time. Objective: The patient participated in a follow-up phone visit. Functioning, progress, and current challenges were reviewed. The session focused on processing her emotional responses to recent provider interactions, validating her experiences, and exploring strategies for effective problem-solving. Interventions included practicing assertive communication and self-advocacy skills, identifying supportive resources, and developing a plan for managing future healthcare encounters. The patient was encouraged to continue engaging in self-care and to utilize community resources as needed. Assessment/Response: * Mental status: Alert, oriented, mood frustrated but cooperative, no safety concerns identified. * Risk reported/identified: none Food/Weight/Diet Expectations of change Started weight 369Lbs Weight as of 08/18/2024: 360 lbs 09/08/2024: 353 Lbs 11/03/2024: 334Lbs Target weight post-op: 165- 185 lbs. PT is implementing the following: Current meal plan: combination of shakes, protein bars, and 1 meal (12F/12F) Exercise plan: Stationary bicycle. Been using it daily, twice a day for 15 minutes each time, and also going for a walk in the nearby track (does 3 laps). Scale: Yes. Communication with prescriber: Mondays. Assessment & Plan Assessment & Plan (1) Major depressive disorder, recurrent, moderate: Code(s): F33.1 - Major depressive disorder, recurrent, moderate (2) Inappropriate diet or eating habits: Code(s): Z72.4 - Inappropriate diet and eating habits Plan - Patient is cleared from a behavioral health perspective. - She will be mailed a letter for [facility] referral and discount. - No further visits are required with this provider at this time. If she decides to proceed with surgery, she will be scheduled for a behavioral health post-op visit within 1?4 weeks. Telehealth Telehealth Telehealth Platform: [employer] Location of provider rendering services: other (Home office. [place], [place]) Location of patient: address on file Patient Identification confirmed using: Name, : Yes Telehealth method: voice only Patient verbally consented to treatment: Yes Patient verbally consented to billing insurance company: Yes Patient informed of any privacy concerns related to visit: Yes Minutes spent on Phone/Video with Pt.: 45 Coding Level of Care Code Established Pt Tele Psytx 45 mins (67477) Patient Type Established Diagnoses Major depressive disorder, recurrent, moderate F33.1 Inappropriate diet or eating habits Z72.4 Time Spent (min) 45
--- OUTSIDE RECORDS SUMMARY | 2024-11-04 14:54 | XMS_ITS | Data Portability ---
Author Organization [place] - [facility], Allergy Address [address] [address] Care Team Providers Care Machine I Cutter Name Role Phone MIKAL LACY Primary Care Provider [phone] Assessment No assessment recorded. Plan of Treatment Reminders Order Date Submit Date Provider Last Modified By Organization Details Last Modified Time Details Appointments None recorded. Lab None recorded. Referral None recorded. Procedures None recorded. Surgeries None recorded. Imaging None recorded. Medication Orders Allergy Relief (fluticas one) 50 mcg/actua tion nasal spray,brooke pension 024 024 [facility] #[id number], [address] [place], [place], [phone], 4 15:51:23 Patient TargetsNo targets recorded. Patient InstructionsNo instructions recorded. Reason for Referral None Reported. Problems Name Problem SNOMED Code Status Onset Date Resolution Date Notes Provider Name and Address Organization Details Recorded Time Otorrhea of left ear [id number] 24136 Completed 201512/14/2023 Otorrhea , left ear; Note: Date Diagnose d: 6 3:28 PM (H92.12) Not Available [facility] 4 02:13:24 Chronic mucoid otitis media of right middle ear 20369116535 70665 Active 2018 Chronic mucoid otitis media, right ear; Note: Date Diagnose d: 02/28/20 19 1:48 PM (H65.31) Not Available [facility] 4 02:14:43 Mixed conducti ve and sensorin eural hearing loss, bilatera l 342271436 Active 2015 Mixed conducti ve and sensorin eural hearing loss, bilatera l; Note: Date Diagnose d: 6 5:54 PM (H90.6) Not Available [facility] 4 02:13:36 Deviated nasal septum 480069022 Active 2018 Deviated nasal septum; Note: Date Diagnose d: 02/28/20 19 3:44 PM (J34.2) Not Available [facility] 4 02:13:39 Bilatera l chronic serous otitis 276324638 Active 2015 Chronic serous otitis media, bilatera l; Note: Date Diagnose d: 6 5:54 PM (H65.23) Not Available [facility] 4 02:14:22 Sensorin eural hearing loss in left ear 13163639488 109 Active 2018 Sensorin eural hearing loss, unilater al, left ear, with restrict ed hearing on the contrala teral side; Note: Date Diagnose d: 02/28/20 19 1:32 PM (H90.A22 ) Not Available [facility] 4 02:14:19 Sleep apnea 64726446 Active 2015 Sleep apnea, unspecif ied; Note: Date Diagnose d: 6 4:46 PM (G47.30) Not Available [facility] 4 02:12:44 Bilatera l disorder of Eustachi an tubes 67257026720 81000 Active 2015 Other specifie d disorder s of Eustachi an tube, bilatera l; Note: Date Diagnose d: 6 5:54 PM (H69.83) Not Available [facility] 4 02:14:32 Hypertro phy of nasal turbinat es 48802750 Active 2018 Hypertro phy of nasal turbinat es; Note: Date Diagnose d: 02/28/20 19 1:49 PM (J34.3) Not Available [facility] 4 02:14:22 Mixed conducti ve and sensorin eural hearing loss of right ear 70776610735 105 Active 2018 Mixed conducti ve and sensorin eural hearing loss, unilater al, right ear with restrict ed hearing on the contrala teral side; Note: Date Diagnose d: 02/28/20 19 1:32 PM (H90.A31 ) Not Available [facility] 4 02:14:50 Recurren t acute serous otitis media of right middle ear 69423422486 86746 Active 2018 Acute serous otitis media, recurren t, right ear; Note: Date Diagnose d: 02/28/20 19 3:44 PM (H65.04) Not Available [facility] 4 02:14:15 Nasal congesti on 20303113 Active 2018 Nasal congesti on; Note: Date Diagnose d: 02/28/20 1:49 PM (R09.81) Not Available [facility] 4 02:13:49 Hypertro phy of adenoids 297450700 Completed 201812/14/2023 Hypertro phy of adenoids ; Note: Date Diagnose d: 02/28/20 19 2:06 PM (J35.2) Not Available [facility] 4 02:12:59 Allergic rhinitis 85592195 Active 2018 Other allergic rhinitis ; Note: Date Diagnose d: 02/28/20 1:49 PM (J30.89) Not Available [facility] 4 02:13:32 Chronic rhinitis 86304956 Active 2023 ZA EMMANUEL MD [address] [place] [address], [place], [address] , [facility] - [facility] 4 15:49:47 Cigarett e smoker 05032025 Active 2023 ZA EMMANUEL MD [address] [place] [address], [place], [address] , [facility] - [facility] 4 15:51:33 Problem Notes None recorded. [...] sustained -release 04/30 completed Medicati on ID: [id number] D uration Value: 30 Brand Name: bupropio [...] mg tablet 2015 active Medicati on ID: [id number] D uration Value: 30 Brand Name: amlodipi [...] a day 04/30 completed Medicati on ID: [id number] D uration Value: 7 Prescri bed By [...] topical cream 04/30 completed Medicati on ID: [id number] D uration Value: 7 Brand Name: econazol [...] e 50 mcg/actua tion nasal spray,brooke pension [place] 2 sprays every day by intranas al route. active Not Available Not Available No t Available TobraDex 0.3 %-0.1 % eye drops,brooke pension 02/27 completed Medicati on ID: [id number] P cynthia d By Name: TRACEE Shannon [...] SNOMED-CT Code Diagnosis ICD10 Code Diagnosis Note [id number] ZA EMMANUEL MD [facility] [address] [address] 04/30/2024 14:55:03 04/30/2024 15:53:53 Chronic rhinitis 52951463 J31.0 Patient has chronic rhinitis which is [...] remedy for her chronic rhinitis. Cigarette smoker 1224816 7 F17.210 Nasal congestion 1139297 0 R09.81 Mixed cond uctive and sensorineural hearing loss, bilateral 882726081 H90.6 Patient will continue to follow-up at [facility] audiology for hearing aid maintenanc e. Bilateral disorder of Eustachian tubes 0754084086 287208 H69.83 Health Concerns Section Related Observation LastModified by Organization Detai ls LastModified Time None Recorded Concern Status LastModified by Organization Details LastModified Time None Recorded Advance Directives Directive None Recorded Payers Insurance Date Sequence Insurance Name Policy Number Policy Galeas Covered Member ID Galeas Member ID Guarantor Name 04/30/2024 1 [facility] [employer] [facility] [id number] Freda Avendano [id number] 1 Freda Avendnao 04/30/2024 1 [facility] [employer] - DIRECT - [place] ZERO (HMO) [id number] Freda Avendano [id number] 1 Freda Avendano Notes Date Note Type [...] residual conductive hearing loss. ZA EMMANUEL MD [address] [place] [address], [place], [address], [facility] - [facility] 04/30/2024 15:55:18 OBGyn Episode No OBEpisode recorded.
== END 2024-11-04 13:58 | disposition home or self-care (01) ==
LOC: HO.HBST 13:07
PROVIDERS: Visit Provider Counselor Mental Health
DX: F33.1 Major depressive disorder, recurrent, moderate (principal); Z72.4 Inappropriate diet and eating habits
CPT/HCPCS: 90834

== ENCOUNTER 2024-12-05 10:11 | Outpatient (REF) | payer OTHER, SELFPAY ==
--- OUTSIDE RECORDS SUMMARY | 2024-12-05 10:28 | XMS_ITS | Data Portability ---
Author Organization [place] - [facility], Allergy Address [address] [address] Care Team Providers Care Transplant Coordinator Name Role Phone MIKAL LACY Primary Care Provider [phone] Assessment No assessment recorded. Plan of Treatment Reminders Order Date Submit Date Provider Last Modified By Organization Details Last Modified Time Details Appointments None recorded. Lab None recorded. Referral None recorded. Procedures None recorded. Surgeries None recorded. Imaging None recorded. Medication Orders Allergy Relief (fluticas one) 50 mcg/actua tion nasal spray,brooke pension 024 024 [facility] #[id number], [address] [place], [place], [phone], 4 15:51:23 Patient TargetsNo targets recorded. Patient InstructionsNo instructions recorded. Reason for Referral None Reported. Problems Name Problem SNOMED Code Status Onset Date Resolution Date Notes Provider Name and Address Organization Details Recorded Time Mixed conducti ve and sensorin eural hearing loss, bilatera l 557844797 Active 2015 Mixed conducti ve and sensorin eural hearing loss, bilatera l; Note: Date Diagnose d: 6 5:54 PM (H90.6) Not Available [facility] 4 02:13:36 Bilatera l chronic serous otitis 987918292 Active 2015 Chronic serous otitis media, bilatera l; Note: Date Diagnose d: 6 5:54 PM (H65.23) Not Available [facility] 4 02:14:22 Sleep apnea 26067552 Active 2015 Sleep apnea, unspecif ied; Note: Date Diagnose d: 6 4:46 PM (G47.30) Not Available [facility] 4 02:12:44 Bilatera l disorder of Eustachi an tubes 28711298922 67447 Active 2015 Other specifie d disorder s of Eustachi an tube, bilatera l; Note: Date Diagnose d: 6 5:54 PM (H69.83) Not Available [facility] 4 02:14:32 Otorrhea of left ear 24175495085 70141 Completed 201512/14/2023 Otorrhea , left ear; Note: Date Diagnose d: 6 3:28 PM (H92.12) Not Available [facility] 4 02:13:24 Chronic mucoid otitis media of right middle ear 48110209874 02812 Active 2018 Chronic mucoid otitis media, right ear; Note: Date Diagnose d: 02/28/20 19 1:48 PM (H65.31) Not Available [facility] 4 02:14:43 Deviated nasal septum 949026482 Active 2018 Deviated nasal septum; Note: Date Diagnose d: 02/28/20 19 3:44 PM (J34.2) Not Available [facility] 4 02:13:39 Sensorin eural hearing loss in left ear 16687374001 109 Active 2018 Sensorin eural hearing loss, unilater al, left ear, with restrict ed hearing on the contrala teral side; Note: Date Diagnose d: 02/28/20 19 1:32 PM (H90.A22 ) Not Available [facility] 4 02:14:19 Hypertro phy of nasal turbinat es 56609216 Active 2018 Hypertro phy of nasal turbinat es; Note: Date Diagnose d: 02/28/20 19 1:49 PM (J34.3) Not Available [facility] 4 02:14:22 Mixed conducti ve and sensorin eural hearing loss of right ear 41436367149 105 Active 2018 Mixed conducti ve and sensorin eural hearing loss, unilater al, right ear with restrict ed hearing on the contrala teral side; Note: Date Diagnose d: 02/28/20 19 1:32 PM (H90.A31 ) Not Available [facility] 4 02:14:50 Recurren t acute serous otitis media of right middle ear 08451125842 36907 Active 2018 Acute serous otitis media, recurren t, right ear; Note: Date Diagnose d: 02/28/20 19 3:44 PM (H65.04) Not Available [facility] 4 02:14:15 Nasal congesti on 66702832 Active 2018 Nasal congesti on; Note: Date Diagnose d: 02/28/20 1:49 PM (R09.81) Not Available [facility] 4 02:13:49 Hypertro phy of adenoids 873544748 Completed 201812/14/2023 Hypertro phy of adenoids ; Note: Date Diagnose d: 02/28/20 19 2:06 PM (J35.2) Not Available [facility] 4 02:12:59 Allergic rhinitis 51342275 Active 2018 Other allergic rhinitis ; Note: Date Diagnose d: 02/28/20 1:49 PM (J30.89) Not Available [facility] 4 02:13:32 Chronic rhinitis 63338451 Active 2023 ZA EMMANUEL MD [address] [place] [address], [place], [address] , [facility] - [facility] 4 15:49:47 Cigarett e smoker 06252717 Active 2023 ZA EMMANUEL MD [address] [place] [address], [place], [address] , [facility] - [facility] 4 15:51:33 Problem Notes None recorded. Medical [...] sustained -release 04/30 completed Medicati on ID: [id number] D uration Value: 30 Brand Name: bupropio [...] mg tablet 2015 active Medicati on ID: [id number] D uration Value: 30 Brand Name: amlodipi [...] a day 04/30 completed Medicati on ID: [id number] D uration Value: 7 Prescri bed By [...] topical cream 04/30 completed Medicati on ID: [id number] D uration Value: 7 Brand Name: econazol [...] e 50 mcg/actua tion nasal spray,brooke pension [place] 2 sprays every day by intranas al route. active Not Available Not Available No t Available TobraDex 0.3 %-0.1 % eye drops,brooke pension 02/27 completed Medicati on ID: [id number] P cynthia d By Name: TRACEE Shannon [...] SNOMED-CT Code Diagnosis ICD10 Code Diagnosis Note [id number] ZA EMMANUEL MD [facility] [address] [address] 04/30/2024 14:55:03 04/30/2024 15:53:53 Chronic rhinitis 43432532 J31.0 Patient has chronic rhinitis which is [...] remedy for her chronic rhinitis. Cigarette smoker 8820238 7 F17.210 Nasal congestion 8410485 0 R09.81 Mixed cond uctive and sensorineural hearing loss, bilateral 919831439 H90.6 Patient will continue to follow-up at [facility] audiology for hearing aid maintenanc e. Bilateral disorder of Eustachian tubes 0758962347 149951 H69.83 Health Concerns Section Related Observation LastModified by Organization Detai ls LastModified Time None Recorded Concern Status LastModified by Organization Details LastModified Time None Recorded Advance Directives Directive None Recorded Payers Insurance Date Sequence Insurance Name Policy Number Policy Galeas Covered Member ID Galeas Member ID Guarantor Name 04/30/2024 1 [facility] [employer] [id number] Freda Avendano [id number] 1 Freda Avendano 04/30/2024 1 [facility] [employer] - DIRECT - [place] ZERO (HMO) [id number] Freda Avendano [id number] 1 Freda Avendano Notes Date Note Type Note Provider Name and Address Organization Details Recorded Time 04/30/2024 text/html 52-year-old female with history of chronic eustachian tube dysfunction, [...] residual conductive hearing loss. ZA EMMANUEL MD [address] [place] [address], [place], [address], [facility] - [facility] 04/30/2024 15:55:18 OBGyn Episode No OBEpisode recorded.
--- NOTE | 2024-12-05 14:08 | MHC.AU.HA3 ---
Hearing Instrument Follow-Up- Binaural Date of Visit: 12/05/24 Right Ear: Make, Model, Color, Serial Number: Manuel Mcdowell [id number] SN: [id number] Color: Hen[place] brown Father's old hearing aids reprogrammed for Freda - Freda's original hearing aids lost Campaign Management Specialist Repair Warranty: Campaign Management Specialist Loss and Damage Warranty: [facility] Service Plan: Battery Size: 13 Accounts Receivable Bookkeeper/Slim Tube: Size #1 slim tube [place]old/Dome/CShell/SlimTip:Medium closed dome Type of Wax Guard: Dispensed By: [facility] Date of Fittin09/23/2014 - Reprogrammed for Freda Left Ear: Make, Model, Color, Serial Number: Manuel Mcdowell [id number] SN: [id number] Color: Hen[place] brown Father's old hearing aids reprogrammed for Freda - Freda's original hearing aids lost Campaign Management Specialist Repair Warranty: [employer] Management Specialist Loss and Damage Warranty: [facility] Service Plan: Battery Size: 13 Accounts Receivable Bookkeeper/Slim Tube: Size #1 slim tube [place]armold/Dome/CShell/SlimTip: Medium closed dome Type of Wax Guard: Dispensed By: [facility] Date of Fittin09/23/2014 - Reprogrammed for Freda Follow-Up Summary: Both aids dropped off c/o . Slim tubes clogged. Cleaned aids (2), replaced slim tubes (2), replaced domes (2) for [address]11 [id number] units. Listening check positive. Recommendations: Recommendations: Hearing instrument follow-up or maintenance as needed. Diagnosis Code(s): Primary Diagnosis: H90.3 Bilateral Sensorineural Hearing Loss Signature: Provider: Nova Delgado, [facility]
== END 2024-12-05 10:12 | disposition home or self-care (01) ==
LOC: HO.SH 10:11
DX: Z13.89 Encounter for screening for other disorder (principal)

== ENCOUNTER 2024-12-11 10:08 | Outpatient (REF) | payer OTHER, SELFPAY | END 2024-12-11 10:09 | disposition home or self-care (01) | LOC: HO.SH 10:08 | PROVIDERS: Visit Provider Internal Medicine | DX: Z01.118 Encounter for examination of ears and hearing with other abnormal findings (principal) | CPT/HCPCS: 92593; 99499 ==